=== PATIENT | male | born 1960 | race Caucasian/White ===

== ENCOUNTER 2023-10-23 18:04 | Inpatient (IN) | payer OTHER, SELFPAY ==
[2023-10-23] VITALS (13 sets, daily range): BP systolic 202–250; BP diastolic 110–132; PULSE 69–94; TEMP 36.6–36.8; O2SAT 98–100; BMI 31.9; BMI 33.0
--- NOTE | 2023-10-23 18:30 | ECG_ITS ---
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
--- NOTE | 2023-10-23 18:31 | XR_ITS ---
The [address] [address] Patient Name: YOCASTA KRUGER MRN: [id number] date: 1960 Sex: M Assigned Patient Location: ER Current Patient Location: ER Accession/Order Number: [id number] Exam Date: 10/23/2023 19:05 Report Date: 10/23/2023 19:51 At the request of: VANI SHARMA Procedure: XR chest 1V EXAM: XR chest 1V CLINICAL INDICATION: Hypertension TECHNIQUE: Portable frontal semi-erect view of the chest. COMPARISON: None. FINDINGS: Lines and tubes: None. Lungs: No convincing focal infiltrates. No pleural effusion or pneumothorax. Heart: Cardiac and mediastinal contours are unremarkable. No overt pulmonary vascular congestion. Osseous structures: No acute abnormalities. XR/XR chest 1V IMPRESSION: No acute cardiopulmonary process. Electronically authenticated by: DAYANARA SUNSHINE Date: 10/23/2023 19:51
--- NOTE | 2023-10-23 18:31 | CT_ITS ---
The [address] [address] Patient Name: YOCASTA KRUGER MRN: [id number] date: 1960 Sex: M Assigned Patient Location: ER Current Patient Location: .MAIN Accession/Order Number: [id number] Exam Date: 10/23/2023 19:09 Report Date: 10/23/2023 19:46 At the request of: VANI SHARMA Procedure: CT head/brain wo con EXAMINATION: CT head/brain wo con, 10/23/2023 7:09 PM EDT HISTORY: Hypertension, headache for 3 days COMPARISON: None. TECHNIQUE: CT scan of the head was performed without IV contrast. CT dose reduction technique was used, including Automated Exposure Control. FINDINGS: BRAIN PARENCHYMA/CSF SPACES: Ventricles are normal in size for age. There is no mass effect or midline shift. Tiny focus of high density in the left frontal lobe, adjacent to a jovanny hole (series 5, image 27). PARANASAL SINUSES: Clear. SKULL BASE AND CALVARIUM: [place] hole noted in the left frontal calvarium. EXTRACRANIAL SOFT TISSUES: Normal. CT/CT head/brain wo con IMPRESSION: Left frontal calvarial jovanny hole with a focal area of increased density in the left frontal lobe in this region which may be artifactual or secondary to chronic changes. A tiny focus of cortical hemorrhage is difficult to exclude on this study. Electronically authenticated by: SAI MCMULLEN Date: 10/23/2023 19:46
--- NOTE | 2023-10-23 18:31 | ED.GENADUL1 ---
HPI HPI - General Adult General Chief complaint: Eye Problems Stated complaint: HEADACHE, BLURRED/DOUBLE VISION L EYE Time Seen by Provider: 10/23/23 18:27 Source: patient Mode of arrival: walk-in Limitations: no limitations History of Present Illness HPI narrative: 63-year-old male presents to ED for headache and blurred vision in his left eye. He has been having this headache for 3 days. He has a history of hypertension but has not been on blood pressure medicine for years and has not had his blood pressure checked for years. No trauma fever or stiff neck. He does not complain of localized weakness in his arms or legs. Headache is moderate and continuous and involves all of his head. Related Data Allergies Allergy/AdvReac Type Severity Reaction Status Date / Time No Known Drug Allergies Allergy Verified 10/23/23 18:14 Opioid HPI Opioid Management Most Recent Opioid Data: No Data to Display Review of Systems ROS Narrative A ten point review of systems is negative except as noted above. Exam Narrative Exam Narrative: Nurses note and vital signs reviewed and patient is not hypoxic. General: The patient appears well and in no apparent distress. Patient is resting comfortably on cart. Skin: Warm, dry, no pallor noted. There is no rash noted. Head: Normocephalic, atraumatic Eye: Normal conjunctiva, no drainage Ears, Nose, Mouth, and Throat: oral mucosa is moist. Nares patent. Cardiovascular: Regular Rate and Rhythm Respiratory: Patient is in no distress, no accessory muscle use, lungs are clear to auscultation, no wheezing, rales or rhonchi Back: non-tender GI: Soft and nontender Musculoskeletal: Bilateral 1+ ankle edema Neurological: A&O, normal speech, upper and lower extremity strength intact Psychiatric: Cooperative Constitutional Vital Signs, click to edit/add: Last Vital Signs Temp 98.3 F 10/23/23 18:15 Pulse 79 10/23/23 18:15 Resp 16 10/23/23 18:15 BP 236/130 H 10/23/23 18:48 Pulse Ox 98 10/23/23 18:15 Course Vital Signs Vital signs: Vital Signs Temperature 98.3 F 10/23/23 18:15 Pulse Rate 79 10/23/23 18:15 Respiratory Rate 16 10/23/23 18:15 Blood Pressure 250/120 H 10/23/23 18:15 Pulse Oximetry 98 10/23/23 18:15 Temperature 98.3 F 10/23/23 18:15 Pulse Rate 79 10/23/23 18:15 Respiratory Rate 16 10/23/23 18:15 Blood Pressure 236/130 H 10/23/23 18:48 Pulse Oximetry 98 10/23/23 18:15 Medical Decision Making MDM Narrative Medical decision making narrative: The patient presents with significantly elevated blood pressure. IV labetalol, 5 mg, as ordered and CT scan is ordered as well as blood work and the patient is signed out to Dr. Aleman. Differential Diagnosis Differential Diagnosis: Uncontrolled hypertension, intracranial hemorrhage ECG Data Attestation: I personally reviewed and interpreted this ECG as follows: (EKG on my interpretation shows sinus rhythm without acute change, flattened T waves inferiorly) Critical Care Time Critical Care Time Critical Care Time: Yes Total Critical Care Time: 35 Attestation: Due to the high probability of sudden and clinically significant deterioration in the patient's condition he/she required the highest level of my preparedness to intervene urgently I provided critical care time including documentation time, medication orders and management, reevaluation, vital sign assessment, ordering and reviewing of lab tests, ordering and reviewing of x-ray studies, and admission orders. Aggregate critical care time is 35 minutes including only time during which I was engaged in work directly related to his/her care and did not include time spent treating other patients simultaneously. Discharge Plan Discharge Patient Disposition: Still a Patient
[2023-10-23] MEDS: LABETALOL HCL 100 MG/20 ML MDV IVP ×2 (19:00→19:51)
[2023-10-23 19:15] LABS: Basophils Percent Auto 0.5 % (0.2-2.0); Eosinophils Percent Auto 0.5 % (0.9-7.0); Hematocrit 45.7 % (42.0-54.0); Hemoglobin 14.9 g/dL (14.0-18.0); Immature Granulocytes Abs Auto 0.01 10^3/uL (0.00-0.03); Immature Granulocytes Pct Auto 0.1 % (0.0-0.5); Lymphocytes Absolute Auto 2.1 10^3/uL (1.2-3.8); Lymphocytes Percent Auto 26.9 % (20.5-60.0); Mean Corpuscular HGB Conc 32.6 g/dL (29.9-35.2); Mean Corpuscular Hemoglobin 30.8 pg (25.9-34.0); Mean Corpuscular Volume 94.4 fL (80.0-94.0); Mean Platelet Volume 10.9 fL (9.5-13.5); Monocytes Absolute Auto 0.7 10^3/uL (0.3-0.8); Neutrophils Absolute Auto 4.9 10^3/uL (1.4-6.5); Platelet Count 199 10^3/uL (150-450); Red Blood Count 4.84 10^6/uL (4.70-6.10); Red Cell Distribution Width 12.4 % (11.0-15.0); White Blood Count 7.8 10^3/uL (4.0-11.0)
[2023-10-23 19:15] LABS: Bilirubin Urine NEGATIVE (NEGATIVE); Blood Urine MODERATE (NEGATIVE); Clarity Urine CLEAR (CLEAR); Color Urine LT. YELLOW (YELLOW); Glucose Urine UA NEGATIVE (NEGATIVE); Ketones Urine 15 mg/dL (NEGATIVE); Leukocyte Esterase Urine NEGATIVE (NEGATIVE); Nitrite Urine NEGATIVE (NEGATIVE); Protein Urine NEGATIVE (NEG/TRACE); Specific Gravity Urine 1.025 (1.005-1.025)
[2023-10-23 19:24] LABS: Amorphous Sediment Urine RARE; Bacteria Urine NONE SEEN #/HPF (NONE SEEN); Cast Seen? NONE SEEN #/LPF (NONE SEEN); Crystals Seen? Seen #/HPF (None Seen); Mucus Urine NONE SEEN (NONE SEEN); Squamous Epithelial Cell Urine NONE SEEN #/LPF (NONE/RARE); Urine Culture Indicated NO; WBC Urine 0-2 #/HPF (NONE SEEN)
[2023-10-23 19:27] LABS: Anion Gap 14.1; BUN Creatinine Ratio 18.9; Calcium 9.3 mg/dL (8.5-10.1); Carbon Dioxide 26.6 mmol/L (21.0-32.0); Chloride 103 mmol/L (98-107); Estimated GFR (African America >60 (>=60); Estimated GFR (Non-African Ame >60 (>=60); Glucose 156 mg/dL (74-106); Potassium 3.7 mmol/L (3.5-5.1); Sodium 140 mmol/L (136-145)
[2023-10-23 19:33] LABS: Troponin I High Sensitivity 33.9 pg/mL (4.0-76.1)
[2023-10-23] MEDS: HYDRALAZINE HCL 20 MG/ML VIAL 10 MG IVP (22:36)
[2023-10-24] VITALS (87 sets, daily range): BP systolic 116–237; BP diastolic 70–127; PULSE 61–110; TEMP 36.6–36.8; O2SAT 96–100
[2023-10-24] MEDS: HYDRALAZINE HCL 20 MG/ML VIAL 10 MG IVP ×3 (02:58→15:37)
[2023-10-24 05:00] LABS: Basophils Absolute Auto 0.1 10^3/uL (0.0-0.1); Basophils Percent Auto 0.6 % (0.2-2.0); Eosinophils Percent Auto 0.5 % (0.9-7.0); Hemoglobin 14.6 g/dL (14.0-18.0); Immature Granulocytes Abs Auto 0.02 10^3/uL (0.00-0.03); Immature Granulocytes Pct Auto 0.3 % (0.0-0.5); Lymphocytes Absolute Auto 2.3 10^3/uL (1.2-3.8); Lymphocytes Percent Auto 29.7 % (20.5-60.0); Mean Corpuscular HGB Conc 33.2 g/dL (29.9-35.2); Mean Corpuscular Hemoglobin 30.9 pg (25.9-34.0); Monocytes Absolute Auto 0.9 10^3/uL (0.3-0.8); Monocytes Percent Auto 11.2 % (1.7-12.0); Neutrophils Absolute Auto 4.5 10^3/uL (1.4-6.5); Neutrophils Percent Auto 57.7 % (43.0-75.0); Platelet Count 191 10^3/uL (150-450); Red Blood Count 4.73 10^6/uL (4.70-6.10); Red Cell Distribution Width 12.5 % (11.0-15.0); White Blood Count 7.7 10^3/uL (4.0-11.0)
[2023-10-24 05:29] LABS: Alanine Aminotransferase 23 U/L (16-63); Albumin Globulin Ratio 1.1; Albumin Level 3.6 g/dL (3.4-5.0); Alkaline Phosphatase 47 U/L (46-116); Anion Gap 14.5; Aspartate Amino Transferase 14 U/L (15-37); BUN Creatinine Ratio 16.7; Chloride 104 mmol/L (98-107); Estimated GFR (African America >60 (>=60); Estimated GFR (Non-African Ame >60 (>=60); Globulin 3.4 g/dL; Glucose 111 mg/dL (74-106); Potassium 3.5 mmol/L (3.5-5.1); Sodium 140 mmol/L (136-145)
--- NOTE | 2023-10-24 07:00 | MR_ITS ---
The [address] [address] Patient Name: YOCASTA KRUGER MRN: [id number] date: 1960 Sex: M Assigned Patient Location: ICU Current Patient Location: ICU Accession/Order Number: [id number] Exam Date: 10/24/2023 12:00 Report Date: 10/24/2023 12:56 At the request of: DIXIE SPANN Procedure: MR head/brain wo con EXAM: MR head/brain wo con HISTORY: headache/blurred vision - HTN Emergency COMPARISON: CT head 10/23/2023. TECHNIQUE: Multiplanar multisequence MR imaging of the brain was performed without intravenous contrast. FINDINGS: Calvarium/skull base: The previously described left frontal jovanny hole is redemonstrated. No focal marrow replacing lesion suggestive of neoplasm. Orbits: Grossly unremarkable. Paranasal sinuses: Imaged portions clear Brain: No restricted diffusion. Minimal T2 FLAIR signal hyperintensities are present involving the supratentorial white matter. No focal abnormality is present involving the left frontal lobe subjacent to the frontal jovanny hole suggesting this was artifactual in nature on recent CT. No mass effect, hemorrhage, or hydrocephalus. Grossly normal flow-related signal in the major intracranial arteries and dural sinuses. MR/MR head/brain wo con IMPRESSION: 1. No acute intracranial process. 2. Minimal scattered T2 hyperintense white matter lesions which are nonspecific, typically attributed to prior trauma/inflammation/demyelination, or chronic ischemia associated with migraine/atherosclerosis. Electronically authenticated by: TED NGUYEN Date: 10/24/2023 12:56
[2023-10-24] MEDS: LOSARTAN POTASSIUM 50 MG TABLET 100 MG PO (08:28)
[2023-10-24] MEDS: HYDROCHLOROTHIAZIDE 25 MG TABLET PO (08:28)
--- NOTE | 2023-10-24 11:17 | PM.HP ---
HPI H&P: HPI History of Present Illness Chief complaint: STROKE MALIGNANT HYPERTENSION Narrative: 63-year-old male with no significant past medical history other than essential hypertension presented to ED last evening with diplopia/blurred vision and headache. He reports he has ongoing headache associated with double vision/blurred vision for 2 days. He has prior history of essential hypertension but he is not on anything currently for it. He has not seen a primary care physician for a few years. As a child he had head injury that required cranial surgery that was seen on the CT head on arrival with no evidence of acute bleeding. Patient denies any weakness/numbness. He was admitted to ICU overnight for hypertensive emergency with blood pressure as high as 250/120 on arrival. He was initially treated with IV labetalol and IV hydralazine but was not started on IV continuous infusion for hypertensive emergency. While his blood pressure is somewhat better but he is still persistently above 190/100 and continues to experience/report headache/blurred vision/diplopia. I started him on oral losartan/hydrochlorothiazide. There is no significant response to oral medication and as a result I started him on IV Cardene drip with goal blood pressure no less than 160/100. I also added oral amlodipine. Patient was admitted as above observation but given his presentation including malignant hypertension/hypertensive emergency, persistent neurological symptoms and difficult to treat bp prior continuous IV infusion, I changed him to inpatient. He has an MRI brain pending to rule out stroke/intracranial bleeding. He also has a teleneurology consult pending. Opioid HPI Opioid Management Most Recent Opioid Data: Last Pain Scale 2 10/24/23 11:00 Last Pain Assessment 10/24/23 11:00 Last ORT Total Score 0 10/23/23 22:28 Last ORT Risk Category Low Risk 10/23/23 22:28 Review of Systems ROS Status of ROS 10 or more systems reviewed and unremarkable except as noted in history and below PFSH PFSH Surgical History (Updated 10/23/23 @ 22:19 by Rocío Coker) History of jovanny hole surgery ?Z98.890 - Other specified postprocedural states (ICD-10) Social History (Updated 10/23/23 @ 22:21 by Rocío Coker) Within the past year, how often did you have a drink containing alcohol: 4 or more times a week Within the past year, how many standard drinks containing alcohol did you have on a typical day: 3 or 4 Non-prescribed substance use: cannabis (any form) 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 Highest level of school completed/degree received: Associate degree: occupational, technical, vocational program In a typical week, how many times do you talk on the telephone with family, friends, or neighbors: 3 or more times per week How often do you get together with friends or relatives: 3 or more times per week Little interest or pleasure in doing things: not at all Feeling down, depressed, or hopeless: not at all Feel stressed/tense/nervous/anxious/difficulty sleeping: not at all Meds Home Medications and Allergies Allergies Allergy/AdvReac Type Severity Reaction Status Date / Time No Known Drug Allergies Allergy Verified 10/23/23 18:14 Exam Constitutional Vital Signs, click to edit/add: Last Vital Signs Temp 98 F 10/24/23 08:00 Pulse 69 10/24/23 10:30 Resp 21 H 10/24/23 10:30 BP 213/98 H 10/24/23 10:51 Pulse Ox 98 10/24/23 08:00 O2 Del Method Room Air 10/24/23 08:00 Documenting provider has reviewed patient's vital signs: yes Common normals: no apparent distress and oriented x3 General appearance: cooperative HENMT Common normals: normocephalic and head/scalp atraumatic Head and scalp: normocephalic and atraumatic Other: Evidence of prior head injury on forehead Eye Common normals: conjunctivae normal and no scleral icterus Conjunctiva: conjunctiva(e) normal Respiratory Common normals: normal respiratory effort and clear to auscultation bilaterally Effort & inspection: able to speak in complete sentences Auscultation: clear to auscultation bilaterally Cardio Common normals: regular rate, S1 normal heart sound and S2 normal heart sound Rate: regular rate Heart sounds: S1 normal and S2 normal GI Common normals: Normal to inspection, nondistended, normoactive bowel sounds present, soft to palpation, non-tender and no hepatosplenomegaly Palpation: soft and no hepatosplenomegaly Extremity Common normals: no clubbing, cyanosis or edema Neuro Common normals: oriented x3, moves all extremities and no focal motor deficits Psych Common normals: mental status grossly normal, denies hallucinations, denies homicidal ideation and denies suicidal ideation Results Labs Labs: Short CBC 10/23/23 10/24/23 Range/Units 18:32 04:05 WBC 7.8 7.7 (4.0-11.0) 10^3/uL Hgb 14.9 14.6 (14.0-18.0) g/dL Hct 45.7 44.0 (42.0-54.0) % Plt Count 199 191 (150-450) 10^3/uL BMP 10/23/23 10/24/23 18:32 04:05 Sodium 140 140 Potassium 3.7 3.5 Chloride 103 104 Carbon Dioxide 26.6 25.0 BUN 17.0 12.0 Creatinine 0.90 0.72 Glucose 156 H 111 H Calcium 9.3 9.0 Liver Function 10/24/23 Range/Units 04:05 Total Bilirubin 1.0 (0.2-1.0) mg/dL AST 14 L (15-37) U/L ALT 23 (16-63) U/L Alkaline Phosphatase 47 (46-116) U/L Albumin 3.6 (3.4-5.0) g/dL Urine 10/23/23 Range/Units 18:45 Urine Color Lt. yellow (YELLOW) Urine Clarity Clear (CLEAR) Urine pH 6.0 (5.0-9.0) Ur Specific [place] 1.025 (1.005-1.025) Urine Protein Negative (NEG/TRACE) mg/dL Urine Glucose (UA) Negative (NEGATIVE) mg/dL Assessment and Plan Assessment and Plan (1) Hypertensive emergency: (2) Diplopia: (3) Blurred vision: (4) Headache: Qualifiers: Headache type: unspecified Headache chronicity pattern: acute headache Intractability: not intractable Qualified Code(s): R51.9 - Headache, unspecified Plan Patient presented with hypertensive emergency, headache and associated neurological symptoms including diplopia and blurred vision. His blood pressure is a still quite elevated and persistently above 190-200/100. He will require continuous IV infusion. Started on IV Cardene. He was also given oral losartan/hydrochlorothiazide along with amlodipine. Patient needs close hemodynamic monitoring, along with frequent neurochecks. Awaiting MRI brain and neurological evaluation by teleneurology. Patient is critically ill with high risk of prognosis and neurological outcome. He needs close monitoring of his blood pressure and gradual/slow titration of antihypertensives. Goal blood pressure is 160/100 in first 24 hours. Overall 50 minutes of critical care time spent on patient's evaluation, coordination of care, review of his medical chart, patient education and clinical decision making.
--- NOTE | 2023-10-24 11:37 | CM.NOTE ---
Rounds made with Dr. Beatty, discussed with pt in depth regarding danger of high BP and need for better control prior to discharge to home. Discussed also importance of f/u with eye doctor. Daughter at bedside to hear recommendations. Spoke with pt also regarding getting BP cuff for home to monitor daily BP. Pt and daughter both verbalize understanding.
[2023-10-24] MEDS: AMLODIPINE BESYLATE 5 MG TABLET 10 MG PO (11:38)
--- NOTE | 2023-10-24 14:09 | CT_ITS ---
The [address] [address] Patient Name: YOCASTA KRUGER MRN: [id number] date: 1960 Sex: M Assigned Patient Location: ICU Current Patient Location: ICU Accession/Order Number: [id number] Exam Date: 10/24/2023 14:21 Report Date: 10/24/2023 15:10 At the request of: LAINA MARTINEZ Procedure: CT angio head CT angio head, 10/24/2023 2:21 PM EDT INDICATION: double vision COMPARISON: Prior MRI of the head of the same date and CT of the head dated 10/23/2023 TECHNIQUE: Pre and postcontrast enhanced CT angiography of the head and neck were acquired with contrast .3 D MIP images were reconstructed in sagittal and coronal format at the scanner and were evaluated at the time of dictation. Dose reduction techniques were achieved by using automated exposure control and/or adjustment of mA and/or kV according to patient size and/or use of iterative reconstruction technique. FINDINGS: The great vessels enhance normally. No filling defects are identified within the carotid arteries. There is mild stenosis at the origin of right and moderate at origin of left internal carotid arteries. No abnormality of [place] of [place] is noted. The VAIBHAV MCA and SLIVER LAP MACHINE TENDER are unremarkable. The anterior and posterior communicating arteries are patent. There is no aneurysm or significant stenosis. No abnormality of the vertebral and basilar arteries is noted. No mass, mass effect or midline shift or hemorrhage in the brain parenchyma is noted. Left frontal craniotomy and encephalomalacia is again noted. No significant soft tissue abnormality within the neck is noted. The visualized portion of the lungs is unremarkable. No suspicious bone lesion is noted. Multilevel degenerative changes of cervical spine. CT/CT angio head IMPRESSION: Mild stenosis at origin of the right and moderate stenosis at origin of the left internal carotid arteries. No CT evidence of embolus or severe stenosis or dissection in the major arteries in the current study. CAROTID STENOSIS REFERENCE: MILD = <50% stenosis. MODERATE = 50-69% stenosis. SEVERE = >70% stenosis. Electronically authenticated by: LYDIA BURNS Date: 10/24/2023 15:10
--- NOTE | 2023-10-24 14:09 | CT_ITS ---
The [address] [address] Patient Name: YOCASTA KRUGER MRN: [id number] date: 1960 Sex: M Assigned Patient Location: ICU Current Patient Location: ICU Accession/Order Number: [id number] Exam Date: 10/24/2023 14:21 Report Date: 10/24/2023 15:10 At the request of: LAINA MARTINEZ Procedure: CT angio neck CT angio head, 10/24/2023 2:21 PM EDT INDICATION: double vision COMPARISON: Prior MRI of the head of the same date and CT of the head dated 10/23/2023 TECHNIQUE: Pre and postcontrast enhanced CT angiography of the head and neck were acquired with contrast .3 D MIP images were reconstructed in sagittal and coronal format at the scanner and were evaluated at the time of dictation. Dose reduction techniques were achieved by using automated exposure control and/or adjustment of mA and/or kV according to patient size and/or use of iterative reconstruction technique. FINDINGS: The great vessels enhance normally. No filling defects are identified within the carotid arteries. There is mild stenosis at the origin of right and moderate at origin of left internal carotid arteries. No abnormality of [place] is noted. The VAIBHAV MCA and PATIENT SAFETY MANAGER are unremarkable. The anterior and posterior communicating arteries are patent. There is no aneurysm or significant stenosis. No abnormality of the vertebral and basilar arteries is noted. No mass, mass effect or midline shift or hemorrhage in the brain parenchyma is noted. Left frontal craniotomy and encephalomalacia is again noted. No significant soft tissue abnormality within the neck is noted. The visualized portion of the lungs is unremarkable. No suspicious bone lesion is noted. Multilevel degenerative changes of cervical spine. CT/CT angio neck IMPRESSION: Mild stenosis at origin of the right and moderate stenosis at origin of the left internal carotid arteries. No CT evidence of embolus or severe stenosis or dissection in the major arteries in the current study. CAROTID STENOSIS REFERENCE: MILD = <50% stenosis. MODERATE = 50-69% stenosis. SEVERE = >70% stenosis. Electronically authenticated by: LYDIA BURNS Date: 10/24/2023 15:10
--- NOTE | 2023-10-24 14:09 | CA_ITS ---
Patient Name: YOCASTA KRUGER MR#: [id number] : 1960 Exam Date: 10/24/2023 Ordering Doctor: LAINA MARTINEZ ECHOCARDIOGRAM REPORT PROCEDURE: CA ECHO W/ CON INDICATIONS: R/O emboli, hypertension COMPARISON: None. DESCRIPTION: COMPLETE ECHOCARDIOGRAM Real-time transthoracic echocardiography with 2D, M-mode, spectral and color flow Doppler performed. QUALITY: Technical quality was adequate. Lumason contrast was administered to rule out possible emboli. 68 , 216#, BSA 2.11 m2, BP 191/83 LEFT VENTRICLE: Normal chamber size. Moderate concentric left ventricular hypertrophy. Systolic function is hyperdynamic. There is near cavity obliteration in systole with mild intracavitary gradient up to 12 mmHg at rest. LV EF: Hyperdynamic left ventricular ejection fraction, (80%). DIASTOLIC: Grade I diastolic dysfunction. ATRIAL SEPTUM: Visually appears intact. LEFT ATRIUM: Mild dilatation. RIGHT ATRIUM: Mild dilatation. RIGHT VENTRICLE: Normal chamber size. Normal right ventricular systolic function. TRICUSPID VALVE: Normal mobility and thickness. No stenosis with trivial regurgitation. MITRAL VALVE: Normal mobility and thickness. No evidence of mitral valve stenosis. There is no mitral annular calcification. Trivial mitral regurgitation. AORTIC VALVE: Unable to assess leaflet morphology. Mildly calcified aortic valve. Mildly diminished mobility. No aortic regurgitation. AORTIC ROOT: Normal diameter and appearance. Ascending aorta is normal in size. PULMONIC VALVE: Not well visualized. PERICARDIUM: No evidence of pericardial effusion. IVC: Collapses with inspirations. PLEURA: CONCLUSION: 1. Mild concentric left ventricular hypertrophy with hyperdynamic systolic function. LVEF is estimated at 80%. There is near cavity obliteration in systole with mild intracavitary gradient up to 12 mmHg. 2. Normal right ventricular size and systolic function. 3. Mild biatrial dilatation. 4. Grade 1 diastolic dysfunction. 5. Calcified aortic valve without significant stenosis or regurgitation. 6. No significant valvular dysfunction. Adult Echocardiography Procedure Report Left Ventricle LVEDD (3.7 - 5.6 cm): 4.55 cm LVESD (2.2 - 4.0 cm): 3.11 cm LVIVS thickness (0.6 - 1.2 cm): 1.41 cm LVPW thickness (0.5 - 1.0 cm): 1.20 cm E - e': 5.16 LVOT Max Gradient: 9.04 mm[Hg] LVOT Area (cm2): 1.50 m/s Peak Velocity (LVOT): 1.50 m/s Mean Velocity (LVOT): 1.19 m/s LVOT Diameter 2.36 cm Left Atrium LA Volume Index (2D A2C): 36.16 ml/m2 Left Atrium Systolic Dimension: 3.58 cm Mitral Valve MV E to A Ratio: 0.49 Mitral Valve A-Wave Peak Velocity: 1.02 m/s Mitral Valve E-Wave Peak Velocity: 0.50 m/s Right Ventricle Aorta AO Root Diam: 3.27 cm Ascending Ao Diam: 3.05 cm Aortic Valve AoV Area (Peak [place]): 2.58 cm2, 2.58 cm2 AoV Area (VTI): 3.06 cm2, 3.06 cm2 Peak Velocity(Antegrade Flow): 2.55 m/s, 2.27 m/s Peak Gradient(Antegrade Flow): 25.95 mm[Hg], 20.56 mm[Hg] Mean Velocity(Antegrade Flow): 1.58 m/s, 1.42 m/s Mean Gradient(Antegrade Flow): 12.36 mm[Hg], 10.05 mm[Hg] Velocity Time Integral: 43.65 cm, 41.60 cm Tricuspid Valve Pulmonic Valve Mean Gradient: 4.98 mm[Hg] Mean Velocity: 1.05 m/s Peak Velocity: 1.46 m/s, 1.22 m/s Peak Gradient: 5.91 mm[Hg], 8.50 mm[Hg] Right Atrium Right Atrium Systolic Pressure: 58.73 ml, 58.73 ml Dictated by: Ba Frye M.D. on 10/24/2023 at 17:57 Approved by: Ba Frye M.D. on 10/24/2023 at 18:10
[2023-10-24 14:43] LABS: Chol HDL Ratio 2.7; Cholesterol 222 mg/dL (<=200); HDL Cholesterol 82 mg/dL (40-60); Triglycerides 84 mg/dL (<=150); VLDL CHOLESTEROL 16.8 mg/dL
[2023-10-24 15:09] LABS: Estimated Average Glucose 111 mg/dL; Glycohemoglobin A1C 5.5 % (4.5-6.2)
[2023-10-24] MEDS: ASPIRIN 81 MG TAB.CHEW PO (15:35)
[2023-10-24] MEDS: SULFUR HEXAFLUORIDE MICROSPHR 25 MG (5ML VIAL) IV (16:17)
[2023-10-25] VITALS (19 sets, daily range): BP systolic 125–194; BP diastolic 80–108; PULSE 63–83; TEMP 36.4–37.1; O2SAT 96–99
[2023-10-25 05:59] LABS: Basophils Percent Auto 0.3 % (0.2-2.0); Eosinophils Percent Auto 0.3 % (0.9-7.0); Hematocrit 45.3 % (42.0-54.0); Hemoglobin 14.7 g/dL (14.0-18.0); Immature Granulocytes Abs Auto 0.02 10^3/uL (0.00-0.03); Immature Granulocytes Pct Auto 0.2 % (0.0-0.5); Lymphocytes Percent Auto 29.4 % (20.5-60.0); Mean Corpuscular HGB Conc 32.5 g/dL (29.9-35.2); Mean Corpuscular Hemoglobin 30.7 pg (25.9-34.0); Mean Corpuscular Volume 94.6 fL (80.0-94.0); Mean Platelet Volume 11.5 fL (9.5-13.5); Monocytes Absolute Auto 1.3 10^3/uL (0.3-0.8); Monocytes Percent Auto 12.3 % (1.7-12.0); Neutrophils Absolute Auto 5.9 10^3/uL (1.4-6.5); Neutrophils Percent Auto 57.5 % (43.0-75.0); Platelet Count 194 10^3/uL (150-450); Red Blood Count 4.79 10^6/uL (4.70-6.10); White Blood Count 10.3 10^3/uL (4.0-11.0)
[2023-10-25 06:15] LABS: Alanine Aminotransferase 18 U/L (16-63); Albumin Level 3.4 g/dL (3.4-5.0); Alkaline Phosphatase 44 U/L (46-116); Anion Gap 11.8; Aspartate Amino Transferase 14 U/L (15-37); BUN Creatinine Ratio 20.2; Calcium 9.1 mg/dL (8.5-10.1); Chloride 104 mmol/L (98-107); Estimated GFR (African America >60 (>=60); Estimated GFR (Non-African Ame >60 (>=60); Globulin 3.3 g/dL; Glucose 104 mg/dL (74-106); Potassium 3.8 mmol/L (3.5-5.1); Sodium 139 mmol/L (136-145); Total Protein 6.7 g/dL (6.4-8.2)
--- NOTE | 2023-10-25 06:50 | PC.NURSE ---
Patient up to bathroom after having blood drawn. No vertigo or pain noted. Patient states he continues to have double vision without change in the amount or the way things appear.
[2023-10-25] MEDS: AMLODIPINE BESYLATE 5 MG TABLET 10 MG PO (08:08)
[2023-10-25] MEDS: LOSARTAN POTASSIUM 50 MG TABLET 100 MG PO (08:08)
[2023-10-25] MEDS: HYDROCHLOROTHIAZIDE 25 MG TABLET PO (08:08)
[2023-10-25] MEDS: ASPIRIN 81 MG TAB.CHEW PO (08:08)
--- NOTE | 2023-10-25 09:15 | PM.DS1 ---
DS: Providers Provider Date of admission: 10/24/23 11:24 Primary care physician: RAMIRO JONES MD Consults: 10/23/23 20:17 Consult to Telestroke Routine Reason for consultation: consult [facility] stroke Dr Hu DS: Diagnosis Discharge Diagnosis (1) Hypertensive emergency: (2) Diplopia: (3) Blurred vision: (4) Headache: Qualifiers: Headache type: unspecified Headache chronicity pattern: acute headache Intractability: not intractable Qualified Code(s): R51.9 - Headache, unspecified (5) Carotid artery stenosis: (6) Hypertension: DS: Summary Hospital Course Hospital Course: Reason for admission: See ER note and H&P for details. 63 y/o male to ER with ESPINOSA and blurred vision. History of HTN and no medication and not checked for several years. C/o ESPINOSA for several days. Developed blurred vision and double vision. To ER and BP 236/130. CT head negative. Gave IV medication and started cardene drip. Admitted for treatment. Hospital course: Tele-neurology consulted and MRI brain ordered. BP improved and added losartan and HCTZ. Off drip and added amlodipine. MRI brain without acute change. CTA head and neck with mild stenosis right origin carotid and moderate stenosis origin left carotid artery. Echo with EF 80% and mild diastolic dysfunction. Vision changes resolved and BP stable. Discharged home in stable condition. Will continue Hyzaar and norvasc for HTN. Monitor BP PRN at home. Will arrange for outpatient vascular surgery follow up to assess carotid artery stenosis. Establish with new PCP in 1-2 weeks. Time Spent with Patient Time attestation: Total time spent providing and/or coordinating discharge services: Time spent: greater than 30 minutes Exam Constitutional Vital Signs, click to edit/add: Last Vital Signs Temp 97.6 F 10/25/23 08:00 Pulse 74 10/25/23 08:00 Resp 18 10/25/23 08:00 BP 194/95 H 10/25/23 08:00 Pulse Ox 97 10/25/23 08:00 O2 Del Method Room Air 10/25/23 08:00 Documenting provider has reviewed patient's vital signs: yes Common normals: no apparent distress, oriented x3 and alert HENMT Common normals: normocephalic Eye Common normals: PERRL and EOMs intact bilaterally Respiratory Common normals: normal respiratory effort and clear to auscultation bilaterally Cardio Common normals: regular rate, regular rhythm, no gallops, no murmurs and no rub GI Common normals: Normal to inspection, nondistended, normoactive bowel sounds present and non-tender Extremity Common normals: no pedal edema DS: Data Data Completed and Pending Labs on day of discharge: Labs from last 24 hours 10/25/23 10/24/23 03:49 04:05 WBC 10.3 RBC 4.79 Hgb 14.7 Hct 45.3 MCV 94.6 H MCH 30.7 MCHC 32.5 RDW 13.0 Plt Count 194 MPV 11.5 Neut % (Auto) 57.5 Lymph % (Auto) 29.4 Childress % (Auto) 12.3 H Eos % (Auto) 0.3 L Baso % (Auto) 0.3 Neut # (Auto) 5.9 Lymph # (Auto) 3.0 Child[place] # (Auto) 1.3 H Eos # (Auto) 0.0 Baso # (Auto) 0.0 Abs Immat Gran (auto) 0.02 Imm/Tot Granulo (auto) 0.2 Sodium 139 Potassium 3.8 Chloride 104 Carbon Dioxide 27.0 Anion Gap 11.8 BUN 19.0 H Creatinine 0.94 Est GFR ( Amer) >60 Est GFR (Non-Af Amer) >60 BUN/Creatinine Ratio 20.2 Glucose 104 Estimat Average Glucose 111 Hemoglobin A1c 5.5 Calcium 9.1 Total Bilirubin 1.0 AST 14 L ALT 18 Alkaline Phosphatase 44 L Total Protein 6.7 Albumin 3.4 Globulin 3.3 Albumin/Globulin Ratio 1.0 Triglycerides 84 Cholesterol 222 H LDL Cholesterol, Calc 124.0 VLDL Cholesterol 16.8 HDL Cholesterol 82 H Cholesterol/HDL Ratio 2.7 Discharge Plan Discharge Disposition: Home, Self-Care Discharge Medications: New amlodipine 10 mg tablet 10 mg PO DAILY Qty: 30 0RF losartan-hydrochlorothiazide [Hyzaar] 100-25 mg tablet 1 tab PO DAILY Qty: 30 0RF Activity: increase activity as tolerated Diet: advance to your usual diet Print Language: Guamanian Forms: Portal Instructions
--- NOTE | 2023-10-28 13:15 | CM.DCFOLLOWU ---
Person spoke with: patient How are you feeling? well How is your pain? no pain Did you understand your discharge instructions? yes Do you have any questions about your discharge instructions? no Were you given any prescriptions at discharge? yes Were you able to get your prescriptions filled? yes Do you understand how to take your medications as ordered? yes Do you have any questions about your follow up appointment and do you plan to keep your follow up appointment? no questions, had follow up with PCP and follow up with eye doctor today Is there anything else that you would like to discuss? no Questions/Comments/Concerns/Other: N/A
== END 2023-10-25 10:15 | disposition home or self-care (01) | DRG 305 ==
LOC: ER 19:33 → ICU 22:06
PROVIDERS: Emergency Medicine; Nurse Practitioner Acute Care; Psychiatry & Neurology Neurology; Admitting Provider Internal Medicine; Emergency Provider Internal Medicine; Family Provider Internal Medicine; PCP Internal Medicine; Visit Provider Family Medicine
DX: I16.0 Hypertensive urgency (principal); H53.2 Diplopia; H53.8 Other visual disturbances; R51.9 Headache, unspecified; I65.23 Occlusion and stenosis of bilateral carotid arteries; F12.90 Cannabis use, unspecified, uncomplicated; Z98.890 Other specified postprocedural states
CPT/HCPCS: 36415; 70450; 70496; 70498; 70551; 71045; 80048; 80053; 80061; 81001; 83036; 84484; 85025; 93005; 94761; 96374; 96375; 96376; 99285; C8929; G0378; Q3014; Q9950; Q9967

== ENCOUNTER 2024-02-04 16:50 | Emergency (ER) | payer OTHER, SELFPAY ==
[2024-02-04] VITALS (16 sets, daily range): BP systolic 164–261; BP diastolic 91–151; PULSE 59–74; TEMP 36.8; O2SAT 81–100; BMI 30.1
--- NOTE | 2024-02-04 17:04 | ECG_ITS ---
The [facility] Test Date: 2024-02-04 Pat Name: YOCASTA KRUGER Department: Room: - Gender: Male Physician Aide: : 1960 Requested By: RAMIRO JONES Order Number: [id number] Reading MD: VIVIAN VASQUEZ Measurements Intervals Crawford Rate: 69 P: 43 CT: 174 QRS: 40 QRSD: 92 T: 46 QT: 380 QTc: 400 Interpretive Statements 1100 Sinus rhythm [address] depression [address] & Twave abnormality, can't exclude myocardial ischemia 9150 abnormal ECG Electronically Signed On 02-04-2024 18:14:06 EDT by VIVIAN VASQUEZ
--- NOTE | 2024-02-04 17:04 | XR_ITS ---
The [address] [address] Patient Name: YOCASTA KRUGER MRN: [id number] date: 1960 Sex: M Assigned Patient Location: ED.MAIN Current Patient Location: ER Accession/Order Number: [id number] Exam Date: 02/04/2024 17:33 Report Date: 02/04/2024 18:22 At the request of: EZEQUIEL CHI Procedure: XR chest 1V EXAM: XR chest 1V HISTORY: Hypertension COMPARISON: 10/23/2023 TECHNIQUE: Chest X-ray AP, 1 view FINDINGS: Support devices: None. Lungs/pleura: No consolidation, effusion, or pneumothorax. Heart and mediastinum: Normal contours. Bones: No acute abnormality identified. XR/XR chest 1V Impression: No radiographic evidence of acute cardiopulmonary process. Electronically authenticated by: TIGIST ORTIZ Date: 02/04/2024 18:22
--- NOTE | 2024-02-04 17:07 | ED_ITS ---
HPI HPI - General Adult General Chief complaint: Recheck/Abnormal Lab/Rx Stated complaint: Hypertension Time Seen by Provider: 02/04/24 16:53 Source: patient Mode of arrival: walk-in Limitations: no limitations History of Present Illness HPI narrative: Patient is a very pleasant 63-year-old male who presents to the emergency department at the recommendation of his new nurse practitioner for evaluation of elevated blood pressure. Patient is totally asymptomatic, he states he was very surprised to hear in the primary care office that his blood pressure was so elevated because he has been feeling well. He was admitted to this facility several months ago with elevated blood pressures, hypertensive urgency and headache with blurred vision. He has not had any of these symptoms recently. He states he smokes marijuana but has not smoked cigarettes in many years. He has minimal edema to his ankles which is chronic for him, he states it has been much worse in the past and he feels these symptoms are better than they have been. Patient admits to being noncompliant with his regular blood pressure medications. He does not know what he takes, he states he knows he is supposed to take 1 medication in the morning and 1 at night but he has not taken anything today, he does not know what he took yesterday. Related Data Previous Rx's ?Medication ?Instructions ?Recorded amlodipine 10 mg tablet 10 mg PO DAILY #30 tabs 10/25/23 losartan 100 1 tab PO DAILY #30 tabs 10/25/23 mg-hydrochlorothiazide 25 mg tablet (Hyzaar) Allergies Allergy/AdvReac Type Severity Reaction Status Date / Time No Known Drug Allergies Allergy Verified 10/23/23 18:14 Opioid HPI Opioid Management Most Recent Opioid Data: Last Pain Scale 2 10/24/23 15:54 Last ORT Total Score 0 10/23/23 22:28 Last ORT Risk Category Low Risk 10/23/23 22:28 Review of Systems ROS Constitutional Denies: fever or chills Eyes Denies: blurry vision Ears, nose, mouth, and throat Denies: throat pain or nasal congestion Cardiovascular Denies: chest pain Respiratory Denies: shortness of breath Gastrointestinal Denies: abdominal pain, nausea or vomiting Musculoskeletal Denies: back pain Integumentary/Breast Denies: non-healing lesion Neurological Denies: headache, numbness in extremities, weakness in extremities, lack of coordination or dizziness Hematologic/Lymphatic Denies: easy bruising or easy bleeding PFSH PFSH Medical History (Updated 02/04/24 @ 18:24 by AMANDA Sanchez) Hypertension ?I10 - Essential (primary) hypertension (ICD-10) Surgical History (Updated 10/23/23 @ 22:19 by Rocío Coker) History of jovanny hole surgery ?Z98.890 - Other specified postprocedural states (ICD-10) Social History Within the past year, how often did you have a drink containing alcohol: 4 or more times a week Within the past year, how many standard drinks containing alcohol did you have on a typical day: 3 or 4 Non-prescribed substance use: cannabis (any form) 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 Highest level of school completed/degree received: Associate degree: occupational, technical, vocational program In a typical week, how many times do you talk on the telephone with family, friends, or neighbors: 3 or more times per week How often do you get together with friends or relatives: 3 or more times per week Little interest or pleasure in doing things: not at all Feeling down, depressed, or hopeless: not at all Feel stressed/tense/nervous/anxious/difficulty sleeping: not at all Exam Narrative Exam Narrative: Gen.: Awake, alert, in no distress Head: Normocephalic, atraumatic ENT: Moist mucous membranes Respiratory: No respiratory distress, lungs clear bilaterally Cardio: Regular rate and rhythm Extremities: Moves extremities equally Psych: Normal mood and affect Neuro: No focal neuro deficit Skin: Warm, dry, intact Constitutional Vital Signs, click to edit/add: Last Vital Signs Temp 98.2 F 02/04/24 16:56 Pulse 67 02/04/24 18:20 Resp 18 02/04/24 18:20 BP 164/91 H 02/04/24 18:20 Pulse Ox 100 02/04/24 18:20 O2 Del Method Room Air 02/04/24 16:56 Course Vital Signs Vital signs: Vital Signs Pulse Oximetry 98 02/04/24 16:54 Temperature 98.2 F 02/04/24 16:56 Pulse Rate 67 02/04/24 18:20 Respiratory Rate 18 02/04/24 18:20 Blood Pressure 164/91 H 02/04/24 18:20 Pulse Oximetry 100 02/04/24 18:20 Oxygen Delivery Method Room Air 02/04/24 16:56 Medical Decision Making MDM Narrative Medical decision making narrative: Treated with antihypertensives in the emergency department and repeat blood pressure is 164/91. He continues to be asymptomatic in the emergency department. Cardiac workup is unremarkable. Patient was strongly encouraged to regularly take his blood pressure medications and follow closely with his primary care provider office for adjustment of medications as needed. Return to the emergency department if symptoms change or worsen SUPERVISED APC VISIT, PHYSICIAN ATTESTATION: Based on the medical record the care appears appropriate. ? Medical Records Medical records reviewed: Yes I reviewed the patient's medical records Lab Data Lab results reviewed: Yes I reviewed the patient's lab results Labs: Lab Results 02/04/24 Range/Units 17:14 WBC 7.6 (4.0-11.0) 10^3/uL RBC 4.68 L (4.70-6.10) 10^6/uL Hgb 15.0 (14.0-18.0) g/dL Hct 44.9 (42.0-54.0) % MCV 95.9 H (80.0-94.0) fL MCH 32.1 (25.9-34.0) pg MCHC 33.4 (29.9-35.2) g/dL RDW 12.5 (11.0-15.0) % Plt Count 204 (150-450) 10^3/uL MPV 10.1 (9.5-13.5) fL Neut % (Auto) 53.1 (43.0-75.0) % Lymph % (Auto) 34.7 (20.5-60.0) % Branch % (Auto) 10.4 (1.7-12.0) % Eos % (Auto) 1.2 (0.9-7.0) % Baso % (Auto) 0.5 (0.2-2.0) % Neut # (Auto) 4.0 (1.4-6.5) 10^3/uL Lymph # (Auto) 2.6 (1.2-3.8) 10^3/uL Branch # (Auto) 0.8 (0.3-0.8) 10^3/uL Eos # (Auto) 0.1 (0.0-0.7) 10^3/uL Baso # (Auto) 0.0 (0.0-0.1) 10^3/uL Abs Immat Gran (auto) 0.01 (0.00-0.03) 10^3/uL Imm/Tot Granulo (auto) 0.1 (0.0-0.5) % PT 10.2 (9.0-11.6) sec INR 0.96 Sodium 140 (136-145) mmol/L Potassium 3.9 (3.5-5.1) mmol/L Chloride 103 (98-107) mmol/L Carbon Dioxide 27.7 (21.0-32.0) mmol/L Anion Gap 13.2 BUN 21.0 H (7.0-18.0) mg/dL Creatinine 0.99 (0.70-1.30) mg/dL Est GFR ( Amer) >60 (>=60) Est GFR (Non-Af Amer) >60 (>=60) BUN/Creatinine Ratio 21.2 Glucose 96 (74-106) mg/dL Calcium 9.3 (8.5-10.1) mg/dL Total Bilirubin 0.6 (0.2-1.0) mg/dL AST 19 (15-37) U/L ALT 30 (16-63) U/L Alkaline Phosphatase 52 (46-116) U/L Troponin I High Sens 16.6 (4.0-76.1) pg/mL NT-Pro-B Natriuret Pep 202.0 (<=900.0) pg/mL Total Protein 7.4 (6.4-8.2) g/dL Albumin 4.0 (3.4-5.0) g/dL Globulin 3.4 g/dL Albumin/Globulin Ratio 1.2 TSH 2.235 (0.358-3.740) uIU/mL Imaging Data Chest x-ray: Attestation: I have reviewed the pertinent imaging results. Radiologist's impression: ITS Impressions Chest X-Ray 02/04/24 17:04 Impression: No radiographic evidence of acute cardiopulmonary process. Electronically authenticated by: TIGIST ORTIZ Date: 02/04/2024 18:22 ECG Data Attestation: I personally reviewed and interpreted this ECG as follows: (Normal sinus rhythm at a rate of 69, no acute ST elevation or ectopy. EKG reviewed by attending physician) Discharge Plan Discharge Stand Alone Forms: Work/School Release, Portal Instructions Chief Complaint: Recheck/Abnormal Lab/Rx Clinical Impression: Hypertension Patient Disposition: Home, Self-Care Time of Disposition Decision: 18:24 Condition: Good Prescriptions / Home Meds: No Action amlodipine 10 mg tablet 10 mg PO DAILY Qty: 30 0RF losartan-hydrochlorothiazide [Hyzaar] 100-25 mg tablet 1 tab PO DAILY Qty: 30 0RF Print Language: Macedonian Instructions: Hypertension (ED) Referrals: MICHAEL WILKES [Primary Care Provider] - 1 week Discharge Date/Time: 02/04/24 18:43
[2024-02-04] MEDS: ENALAPRILAT DIHYDRATE 1.25 MG/ML VIAL IV (17:19)
[2024-02-04] MEDS: LABETALOL HCL 20 MG/4 ML SYRINGE IVP (17:19)
[2024-02-04 17:26] LABS: Basophils Percent Auto 0.5 % (0.2-2.0); Eosinophils Absolute Auto 0.1 10^3/uL (0.0-0.7); Eosinophils Percent Auto 1.2 % (0.9-7.0); Hematocrit 44.9 % (42.0-54.0); Immature Granulocytes Abs Auto 0.01 10^3/uL (0.00-0.03); Immature Granulocytes Pct Auto 0.1 % (0.0-0.5); Lymphocytes Absolute Auto 2.6 10^3/uL (1.2-3.8); Lymphocytes Percent Auto 34.7 % (20.5-60.0); Mean Corpuscular HGB Conc 33.4 g/dL (29.9-35.2); Mean Corpuscular Hemoglobin 32.1 pg (25.9-34.0); Mean Corpuscular Volume 95.9 fL (80.0-94.0); Mean Platelet Volume 10.1 fL (9.5-13.5); Monocytes Absolute Auto 0.8 10^3/uL (0.3-0.8); Monocytes Percent Auto 10.4 % (1.7-12.0); Neutrophils Percent Auto 53.1 % (43.0-75.0); Platelet Count 204 10^3/uL (150-450); Red Blood Count 4.68 10^6/uL (4.70-6.10); Red Cell Distribution Width 12.5 % (11.0-15.0); White Blood Count 7.6 10^3/uL (4.0-11.0)
[2024-02-04 17:42] LABS: INR 0.96; Prothrombin Time 10.2 sec (9.0-11.6)
[2024-02-04 17:47] LABS: Alanine Aminotransferase 30 U/L (16-63); Albumin Globulin Ratio 1.2; Alkaline Phosphatase 52 U/L (46-116); Anion Gap 13.2; Aspartate Amino Transferase 19 U/L (15-37); BUN Creatinine Ratio 21.2; Bilirubin Total 0.6 mg/dL (0.2-1.0); Calcium 9.3 mg/dL (8.5-10.1); Carbon Dioxide 27.7 mmol/L (21.0-32.0); Chloride 103 mmol/L (98-107); Estimated GFR (African America >60 (>=60); Estimated GFR (Non-African Ame >60 (>=60); Globulin 3.4 g/dL; Glucose 96 mg/dL (74-106); Potassium 3.9 mmol/L (3.5-5.1); Sodium 140 mmol/L (136-145); Thyroid Stimulating Hormone 2.235 uIU/mL (0.358-3.740); Total Protein 7.4 g/dL (6.4-8.2); Troponin I High Sensitivity 16.6 pg/mL (4.0-76.1)
[2024-02-04] MEDS: HYDRALAZINE HCL 20 MG/ML VIAL 10 MG IVP (18:03)
== END 2024-02-04 18:43 | disposition home or self-care (01) ==
PROVIDERS: Physician Assistant; Emergency Provider Emergency Medicine; Family Provider Internal Medicine
DX: I10 Essential (primary) hypertension (principal); Z87.891 Personal history of nicotine dependence
CPT/HCPCS: 36415; 71045; 80053; 83880; 84443; 84484; 85025; 85610; 93005; 96374; 96375; 99285; J0360; J1920

== ENCOUNTER 2024-02-21 08:04 | Outpatient (OUT) | payer OTHER, SELFPAY ==
--- OUTSIDE RECORDS SUMMARY | 2024-02-21 08:08 | XMS_ITS | CCD ---
Author Organization [facility] Inform ion Partnership [facility] Care Team Providers Care Telephone Switchboard Operator Name Role Phone CÉSAR GRAVES Attending Unavailable WILKESMICHAEL CASTRO Attending Unavailabl e WILKESMICHAEL NAVARRO Attending Unavailabl e Encounters Encounter Date Encounter Type Care Provider Facility Start: 02-17-2024 End: 02-17-2024 ambulatory MICHAEL WILKES Not Available Start: 02-04-2024 End: 02-04-2024 ambulatory MICHAEL WILKES Not Available Start: 10-27-2023 End: 10-27-2023 ambulatory ILYACLARKE LEY Not Available Payers Date Payer Category Payer Unknown [id number] 1960 Unknown [id number] 1960 Unknown [id number] 1960 Unknown [id number] Summary Purpose Family History No Family History Records Found Advance Directives No Advanced Directives Records Found Additional Source Comments (unrecognized sect ion and content) No Status Records Found INFORMATION SOURCE (unrecogn ized section and content) DATE CREATED AUTHOR 02/18/2024 [facility] EPIC FOR RECORDS PERTAINING TO PATIENTS WHO ARE OR HAVE BEEN ENROLLED IN A CHEMICAL DEPENDENCY/SUBSTANCEABUSE PROGRAM, SOME INFORMATION MAY BE OMITTED. This clinical summary was aggregated from multiple sources. Caution should be exercised in using it in the provision of clinical care. This summary normalizes information from multiple sources, and as a consequence, information in this document may materially change the coding, format and clinical context of patient data. In addition, data may be omitted in some cases. CLINICAL DECISIONS SHOULD BE BASED ON THE PRIMARY CLINICAL RECORDS. [facility]. provides no warranty or guarantee of the accuracy or completeness of information in this document.
[2024-02-21 08:28] LABS: Basophils Absolute Auto 0.1 10^3/uL (0.0-0.1); Basophils Percent Auto 0.8 % (0.2-2.0); Eosinophils Absolute Auto 0.2 10^3/uL (0.0-0.7); Eosinophils Percent Auto 2.5 % (0.9-7.0); Hematocrit 44.3 % (42.0-54.0); Hemoglobin 15.3 g/dL (14.0-18.0); Immature Granulocytes Abs Auto 0.01 10^3/uL (0.00-0.03); Immature Granulocytes Pct Auto 0.2 % (0.0-0.5); Lymphocytes Absolute Auto 2.4 10^3/uL (1.2-3.8); Lymphocytes Percent Auto 37.7 % (20.5-60.0); Mean Corpuscular HGB Conc 34.5 g/dL (29.9-35.2); Mean Corpuscular Hemoglobin 32.3 pg (25.9-34.0); Mean Corpuscular Volume 93.7 fL (80.0-94.0); Mean Platelet Volume 9.6 fL (9.5-13.5); Monocytes Absolute Auto 0.6 10^3/uL (0.3-0.8); Monocytes Percent Auto 9.3 % (1.7-12.0); Neutrophils Absolute Auto 3.2 10^3/uL (1.4-6.5); Neutrophils Percent Auto 49.5 % (43.0-75.0); Platelet Count 209 10^3/uL (150-450); Red Blood Count 4.73 10^6/uL (4.70-6.10); Red Cell Distribution Width 11.7 % (11.0-15.0); White Blood Count 6.5 10^3/uL (4.0-11.0)
[2024-02-21 08:40] LABS: Estimated Average Glucose 100 mg/dL; Glycohemoglobin A1C 5.1 % (4.5-6.2)
[2024-02-21 09:06] LABS: Alanine Aminotransferase 22 U/L (16-63); Albumin Level 3.6 g/dL (3.4-5.0); Alkaline Phosphatase 47 U/L (46-116); Anion Gap 10.5; Aspartate Amino Transferase 15 U/L (15-37); BUN Creatinine Ratio 32.1; Bilirubin Total 0.8 mg/dL (0.2-1.0); Calcium 8.8 mg/dL (8.5-10.1); Carbon Dioxide 29.2 mmol/L (21.0-32.0); Chloride 101 mmol/L (98-107); Cholesterol 222 mg/dL (<=200); Estimated GFR (African America >60 (>=60); Estimated GFR (Non-African Ame >60 (>=60); Globulin 3.5 g/dL; Glucose 109 mg/dL (74-106); HDL Cholesterol 73 mg/dL (40-60); Potassium 3.7 mmol/L (3.5-5.1); Sodium 137 mmol/L (136-145); TSH W/ REFLEX FT4 1.761 uIU/mL (0.358-3.740); Total Protein 7.1 g/dL (6.4-8.2); Triglycerides 88 mg/dL (<=150); VLDL CHOLESTEROL 17.6 mg/dL
== END 2024-02-21 08:05 | disposition home or self-care (01) ==
LOC: LAB 08:05
PROVIDERS: Family Provider Internal Medicine
DX: Z00.00 Encounter for general adult medical examination without abnormal findings (principal); I10 Essential (primary) hypertension; I65.23 Occlusion and stenosis of bilateral carotid arteries; E78.5 Hyperlipidemia, unspecified
CPT/HCPCS: 36415; 80053; 80061; 83036; 84443; 85025

== ENCOUNTER 2024-03-03 15:10 | Outpatient (OUT) | payer OTHER, SELFPAY ==
--- NOTE | 2024-03-03 15:00 | CA_ITS ---
Patient Name: YOCASTA KRUGER MR#: [id number] : 1960 Exam Date: 03/03/2024 Ordering Doctor: DR. Avel Nation M.D. ECHOCARDIOGRAM REPORT PROCEDURE: CA ECHO DOPPLER COMPLETE INDICATIONS: Edema of both legs COMPARISON: None. DESCRIPTION: COMPLETE ECHOCARDIOGRAM Real-time transthoracic echocardiography with 2D, M-mode, spectral and color flow Doppler performed. QUALITY: Technical quality was good. LEFT VENTRICLE: Normal chamber size. Moderate concentric left ventricular hypertrophy. LV EF: Global left ventricular systolic function is hyperdynamic; visually estimated ejection fraction is 65 to 70%. No wall motion abnormalities. DIASTOLIC: Diastolic function is indeterminate. ATRIAL SEPTUM: Inadequately seen. LEFT ATRIUM: Moderate dilatation. RIGHT ATRIUM: Mild dilatation. RIGHT VENTRICLE: Normal chamber size. Normal right ventricular systolic function. TRICUSPID VALVE: Normal mobility and thickness. No stenosis with mild regurgitation. No evidence of pulmonary hypertension. RVSP 28mmHg MITRAL VALVE: Normal mobility and thickness. No evidence of mitral valve stenosis. There is no mitral annular calcification. No mitral regurgitation. AORTIC VALVE: Normal trileaflet appearance. Mildly calcified aortic valve. Normal leaflet mobility. No evidence of aortic valve stenosis. No aortic regurgitation. AORTIC ROOT: Normal diameter and appearance. PULMONIC VALVE: Normal thickness and mobility. No stenosis. Trivial regurgitation. PERICARDIUM: Anterior free space; trivial effusion versus fat pad. IVC: Collapses with inspirations. Normal size. CONCLUSION: 1. Global left ventricular systolic function is hyperdynamic; visually estimated ejection fraction is 65 to 70% 2. Diastolic function is indeterminate 3. Normal right ventricular size and systolic function 4. Moderate left ventricular hypertrophy 5. Biatrial enlargement 6. Mild tricuspid regurgitation 7. Anterior free space; trivial effusion versus fat pad Adult Echocardiography Procedure Report Left Ventricle LVEDD (3.7 - 5.6 cm): 4.19 cm LVESD (2.2 - 4.0 cm): 2.60 cm LVIVS thickness (0.6 - 1.2 cm): 1.57 cm LVPW thickness (0.5 - 1.0 cm): 1.49 cm e': 0.06 m/s E - e': 9.61 LVOT Max Gradient: 7.66 mm[Hg] LVOT Area (cm2): 1.38 m/s Peak Velocity (LVOT): 1.38 m/s Mean Velocity (LVOT): 1.02 m/s LVOT Diameter 2.19 cm Left Ventricular Ejection Fraction: 71.29 % Left Atrium LA Volume Index (2D A2C): 50.04 ml/m2 Left Atrium Systolic Dimension: 4.19 cm Mitral Valve MV E to A Ratio: 0.58 Mitral Valve A-Wave Peak Velocity: 1.00 m/s Mitral Valve E-Wave Peak Velocity: 0.59 m/s Right Ventricle RV Internal Diastolic Dimension: 3.70 cm Aorta AO Root Diam: 3.38 cm Ascending Ao Diam: 3.11 cm Aortic Valve AoV Area (Peak Isauro): 2.52 cm2, 2.62 cm2 AoV Area (VTI): 2.56 cm2, 2.66 cm2 Peak Velocity(Antegrade Flow): 1.99 m/s, 2.15 m/s Peak Gradient(Antegrade Flow): 15.76 mm[Hg], 18.43 mm[Hg] Mean Velocity(Antegrade Flow): 1.33 m/s, 1.37 m/s Mean Gradient(Antegrade Flow): 8.07 mm[Hg], 8.85 mm[Hg] Velocity Time Integral: 40.40 cm, 43.66 cm Tricuspid Valve Peak Velocity (Regurgitant Flow): 2.15 m/s, 2.50 m/s Pulmonic Valve Mean Gradient: 3.25 mm[Hg], 3.30 mm[Hg] Mean Velocity: 0.83 m/s, 0.85 m/s Peak Velocity: 1.25 m/s Peak Gradient: 6.51 mm[Hg], 5.93 mm[Hg] Right Atrium Right Atrium Systolic Pressure: 70.09 ml, 70.09 ml Dictated by: Zachary Rubio M.D. on 03/05/2024 at 12:39 Approved by: Zachary Rubio M.D. on 03/05/2024 at 12:44
== END 2024-03-03 15:11 | disposition home or self-care (01) ==
LOC: CARD 15:10
PROVIDERS: Family Provider Internal Medicine; Visit Provider Internal Medicine Cardiovascular Disease
DX: R60.0 Localized edema (principal)
CPT/HCPCS: 93306

== ENCOUNTER 2024-03-20 10:02 | Outpatient (OUT) | payer OTHER, SELFPAY ==
--- NOTE | 2024-03-20 | US_ITS ---
[address] [address] Patient Name: YOCASTA KRUGER MRN: [id number] date: 1960 Sex: M Assigned Patient Location: Current Patient Location: Accession/Order Number: [id number] Exam Date: 03/20/2024 10:15 Report Date: 03/22/2024 13:00 At the request of: MICHAEL WILKES Procedure: US renal doppler EXAM: US renal doppler HISTORY: Resistant hypertension COMPARISON: None. TECHNIQUE: Grayscale, color and Doppler FINDINGS: Suboptimal visualization due to bowel gas The right kidney is normal in size, contour and echotexture measuring 10.8 x 5.5 x 5.4 cm. the cortex measures 1.7 cm. No solid cortical mass or hydronephrosis. The left kidney is normal in size, contour and echotexture measuring 11.5 x 5.8 x 5.2 cm. the cortex measures 202 cm. No solid cortical mass or hydronephrosis Urinary bladder volume: 205 mL Doppler: Aorta: 166 cm/s Right renal artery: Proximal: Not observed Mid: Not observed Distal: 137/36 cm/s Left renal artery: Proximal: Not observed Mid: Not observed Distal: 99/23 cm/s US/US renal doppler IMPRESSION: Nonvisualization of the proximal to mid bilateral renal arteries secondary to bowel gas. The distal renal artery flow velocities are within normal limits Normal grayscale appearance Electronically authenticated by: EDI GARCIA Date: 03/22/2024 13:00
--- OUTSIDE RECORDS SUMMARY | 2024-03-20 10:04 | XMS_ITS | CCD ---
Author Organization [facility] Care Team Providers Care Bailiff Name Role Phone CÉSAR GRAVES Attending NISHA Chris Attending NISHA Allan Attending EFRAIN Isaac Attending Unavailable Problems Problem Classification Problem Date Documented Da te Episodic/Chronic Disorders of lipid metabolism (2 sources) Pure hypercholesterole hal, unspecified; Translations: [Pure hypercholesterole hal, unspecified] Onset: 02-20-2024 Chronic Residual codes; unclassified (2 sources) Localized edema; Translations: [Localized edema] Onset: 02-23-2024 Episodic Results Test Name Value Interpretation Reference Range Facil ity Office Visiton 02-23-2024 Follow-up visit [id number] Yocasta Rapp 1960 M Date Provider Department Center 02/23/2024 [id number] CHAPA GIOVANNA [place] Family History Problem Relation Age of Onset No Known Problems Mother No Known Problems Father Family Status - Relation Status Age at Mother Father Level of Service:11201 [place] OFFICE/OUTPATIENT NEW MODERATE MDM 45 MINUTES Reason for Visit and Comments: New Patient [632] Hypertension [121379] - Pt is here per Nisha Wilkes Normal [facility] Encounters Encounter Date Encounter Type Care Provider Facility Start: 02-23-2024 End: 02-23-2024 ambulatory EFRAIN CHAPA [facility] Start: 02-17-2024 End: 02-17-2024 ambulatory NISHA WILKES Not Available Start: 02-04-2024 End: 02-04-2024 ambulatory NISHA WILKES Not Available Start: 10-27-2023 End: 10-27-2023 ambulatory CÉSAR GRAVES Not Available Payers Date Payer Category Payer Unknown [id number] 1960 Unknown [id number] 1960 Unknown [id number] [id number] [id number] 1960 Unknown [id number] Progress note 02-23-2024 Note Date & Type Note Facility 02-23-2024 Note [facility] Note Reason for cardiology consult: Hypertension Chief Complaint: high blood pressure, occasional edema HPI: Yocasta Rapp is a 63 y.o. male without prior cardiac history, he has history of hypertension, hypertension lipidemia. No prior cardiac history. No history of diabetes mellitus. He was in [facility] in October 2023 with double vision, headache and hypertensive emergency. At that time the neck CTA showed mild to moderate carotid disease but there was no evidence of CVA. Has been watching his blood pressure at home twice a day and he states in the morning it is good in the 120/75 however in the evening goes up to 150s to 160s. He works at [employer] and he is active at his job and he walks without any chest pain or shortness of breath on exertion. Denies orthopnea or paroxysmal nocturnal dyspnea or dizziness or palpitations. He admits legs edema which is better now. He snores but not loudly. He does not stop breathing and he is not sleepy or tired during the daytime. He smoked only in his 20s and he quit long time ago. He used to drink 1 beer and 3-4 shots every night for about 30 years he is currently down to 2 drinks a week. He occasionally smokes marijuana. No other illicit drugs He denies family history of coronary artery disease. His father had hypertension Cardiology ROS: GENERAL: Denies fever, chills, night sweats, weight loss. HEENT: Denies changes in vision, photophobia, changes in hearing, epistaxis, oral bleeding. CARDIOVASCULAR: Denies chest pain, exertional dyspnea, orthopnea/PND, palpitations, lightheadedness/dizziness. He reports legs edema RESPIRATORY: Denies SOB, coughing, wheezing GI: Denies abdominal pain, nausea/vomiting, heartburn, melena/hematochezia. RENAL: Denies dysuria, hematuria, flank pain. MSK: Denies muscle weakness/pain, arthralgias/joint pain. NEUROLOGIC: Denies LOC, weakness, numbness, headaches. SKIN: Denies abnormal rashes or bleeding. PSYCH: Denies significant anxiety, depression, sleep disturbances. Past Medical History He has a past medical history of Hypertension. Surgical History He has no past surgical history on file. Social History He reports that he has never smoked. He has never used smokeless tobacco. He reports current alcohol use of about 8.0 standard drinks of alcohol per week. No history on file for drug use. Family History Family History Problem Relation Name Age of Onset No Known Problems Mother No Known Problems Father Allergies Patient has no known allergies. Medications Current Outpatient Medications: amLODIPine (Norvasc) 10 mg tablet, Take 10 mg by mouth in the morning., Disp: , Rfl: losartan-hydrochlorothiazide (Hyzaar) 100-25 mg tablet, Take 1 tablet by mouth in the morning., Disp: , Rfl: metoprolol succinate XL (Toprol-XL) 25 mg 24 hr tablet, Take 25 mg by mouth in the morning., Disp: , Rfl: Last Recorded Vitals Visit Vitals BP 154/86 (BP Location: Right arm, Patient Position: Sitting) Pulse 65 Ht 1.727 m (5' 8 ) Wt 94.3 kg (208 lb) SpO2 96% BMI 31.63 kg/m??? Smoking Status Never BSA 2.13 m??? Physical Examination: GENERAL: alert and oriented x3, well developed, in no acute distress. HEAD: atraumatic, normocephalic. EYES: UMU, EOMI. NECK: trachea midline, no JVD present, no carotid bruits present. CARDIAC: S1, S2 present. RRR. No murmur, rubs, or gallops. RESPIRATORY: CTAB, no increased effort of breathing, no rales, rhonchi, or wheezing. ABDOMEN: soft, nontender, nondistended. EXTREMITIES: Trace lower extremity edema, on the left more than on the right. No rash/skin discoloration present. NEURO: strength/sensation equal and symmetric in bilateral upper and lower extremities. PSYCH: appropriate mood, affect, and judgement. Labs: Labs from 02/04/2024 White blood count 7.6, hemoglobin 15, hematocrit 44.9, platelets 204 INR 0.96 Sodium 140, potassium 3.9, BUN 21, creatinine 0.99, GFR above 60, glucose 96, calcium 9.3 Total bilirubin 0.6, AST 19, ALT 30, alk phos 52, total protein 7.4 BNP 202 TSH 2.235 10/24/2023 Cholesterol 222, HDL 82, LDL 124, triglyceride 84 10/27/2023 HbA1c 5.5% Last Images: EKG 02/04/2024 showed sinus rhythm and nonspecific ST change Chest x-ray 02/04/2024 Impression: No radiographic evidence of acute cardiopulmonary process. CTA neck 10/24/2023 IMPRESSION: Mild stenosis at origin of the right and moderate stenosis at origin of the left internal carotid arteries. No CT evidence of embolus or severe stenosis or dissection in the major arteries in the current study. Assessment and Plan: Hypertension, has been difficult to control. Currently on Toprol-XL, losartan/hydrochlorothiazide and amlodipine. He follows low-salt diet Hyperlipidemia, LDL 124 Carotid disease, mild on the right, moderate on the left neck CT angiogram in October 2023 Legs edema, could be due to amlodipine but (more content not included)... [facility] Summary Purpose Family History No Family History Records FoundNo Family History Records Found Advance Directives No Advanced Directives Records FoundNo Advanced Directives Records Found Additional Source Comments (unrecognized sect ion and content) No Status Records FoundNo Status Records Found INFORMATION SOURCE (unrecogn ized section and content) DATE CREATED AUTHOR 02/18/2024 [facility] DATE CREATED AUTHOR AUTHOR'S ORGANIZ ATION 02/29/2024 [facility] FOR RECORDS PERTAINING TO PATIENTS WHO ARE [...] BE BASED ON THE PRIMARY CLINICAL RECORDS. [employer] [facility]. provides no warranty or guarantee of the accuracy or completeness of information in this document.
== END 2024-03-20 10:03 | disposition home or self-care (01) ==
LOC: US 10:02
PROVIDERS: Family Provider Internal Medicine
DX: I10 Essential (primary) hypertension (principal); I1A.0 Resistant hypertension
CPT/HCPCS: 76775; 93975

== ENCOUNTER 2024-05-01 08:13 | Outpatient (OUT) | payer OTHER, SELFPAY ==
--- OUTSIDE RECORDS SUMMARY | 2024-05-01 08:16 | XMS_ITS | CCD ---
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 Role Phone EFRAIN CHAPA Attending Unavailable Jori Colindres MD Primary Care Provider [phone] Naheed NICOLE, Nisha Swift CÉSAR GRAVES Attending Unavailable NAHEED, NISHA Attending Unavailabl e NISHA WILKES Attending Unavailabl e NAHEED, NISHA Attending Unavailabl e NAHEED, NISHA Attending Unavailabl e Medications Current Medications Medication Drug Class(es) Dates Sig (Normalized) Sig (Original) amLODIPine 10 mg oral tablet (6 sources) Dihydropyridine Calcium Channel Gabriella Start: 02-17-2024 take 1 tablet by mouth once daily amLODIPine (Norvasc) 10 MG tablet Indications: Primary hypertension (CMS/HCC) Take 1 tablet (10 mg) by mouth Daily 30 tablet 02/17/2024 Active atorvastatin 20 mg oral tablet (5 sources) HMG-CoA Reductase Inhibitor Start: 02-23-2024 take 1 tablet by mouth once daily atorvastatin (Lipitor) 20 MG tablet Take 20 mg by mouth Daily 02/23/2024 Active hydrALAZINE hydrochloride 25 mg oral tablet (7 sources) Arteriolar Vasodilator Start: 04-22-2024 End: 04-22-2025 take 2 tablets by mouth in the morning hydrALAZINE (Apresoline) 25 MG tablet Indications: Resistant hypertension (CMS/HCC) Take 2 tablets (50 mg) by mouth in the morning and 2 tablets (50 mg) before bedtime. 120 tablet 11 04/22/2024 04/22/2025 Active Start: 03-18-2024 End: 03-18-2025 take 1 tablet by mouth in the morning hydrALAZINE (Apresoline) 25 MG tablet Indications: Resistant hypertension (CMS/HCC) Take 1 tablet (25 mg) by mouth in the morning and 1 tablet (25 mg) before bedtime. 60 tablet 11 03/18/2024 04/22/2024 Discontinued (Dose adjustment) hydroCHLOROthiazide 25 mg / losartan potassium 100 mg oral tablet (6 sources) Thiazide Diuretic, Angiotensin 2 Receptor Gabriella Start: 02-17-2024 take 1 tablet by mouth once daily losartan-hydroCHLOROthiazide (Hyzaar) 100-25 MG tablet Indications: Primary hypertension (CMS/HCC) Take 1 tablet by mouth Daily 30 tablet 02/17/2024 Active 24 hr metoprolol succinate 50 mg extended release oral tablet (8 sources) beta-Adrenerg ic Gabriella Start: 03-18-2024 End: 03-18-2025 take 1 tablet by mouth once daily metoprolol succinate XL (Toprol-XL) 50 MG 24 hr tablet Indications: Resistant hypertension (CMS/HCC) Take 1 tablet (50 mg) by mouth Daily Do not crush or chew. 30 tablet 11 03/18/2024 03/18/2025 Active Start: 02-17-2024 End: 02-16-2025 take 1 tablet by mouth once daily metoprolol succinate XL (Toprol-XL) 25 MG 24 hr tablet Indications: Primary hypertension (CMS/HCC) , Carotid stenosis, bilateral Take 1 tablet (25 mg) by mouth Daily Do not crush or chew. 30 tablet 2 02/17/2024 03/18/2024 Discontinued (Dose adjustment) Problems Active Problems Problem Classification Problem Date Documented Da te Episodic/Chronic Disorders of lipid metabolism (8 sources) Pure hypercholesterolemi a, unspecified; Translations: [Hyperlipidemia] Onset: 10-27-2023 Chronic Essential hypertension (16 sources) Essential hypertension; Translations: [Essential (primary) hypertension] Onset: 10-27-2023 10-27-2023 Chronic Heart valve disorders (6 sources) Aortic valve calcification; Translations: [Nonrheumatic aortic valve disorder, unspecified] Onset: 10-28-2023 10-28-2023 Chronic Occlusion or stenosis of precerebral arteries (6 sources) Bilateral stenosis of carotid arteries; Translations: [Occlusion and stenosis of bilateral carotid arteries] Onset: 10-27-2023 10-27-2023 Chronic Other and ill-defined heart disease (6 sources) Left ventricular hypertrophy; Translations: [Cardiomegaly] Onset: 10-28-2023 10-28-2023 Chronic Residual codes; unclassified (2 sources) Localized edema; Translations: [Localized edema] Onset: 02-23-2024 Episodic Past or Other Problems Problem Classification Problem Date Documented Da te Episodic/Chronic Heart valve disorders (6 sources) Systolic murmur; Translations: [Cardiac murmur, unspecified] Onset: 10-27-2023 10-27-2023 Episodic Other ear and sense organ disorders (6 sources) Bilateral tinnitus; Translations: [Tinnitus, bilateral] Onset: 10-27-2023 10-27-2023 Episodic Results Test Name Value Interpretation Reference Range Facil ity 36on 03-19-2024 36 Regarding echo and labs: MD Yoly Gonzalez MA Inform patient that his echo looked normal except for thickness of the heart muscle due to uncontrolled hypertension. Also the heart appears hyperdynamic indicating that he is probably a little dehydrated so advise him to drink enough water at least 1500 cc/day Add Aldactone 50 mg daily. Advise the patient it is very important to follow low-salt diet. Check BMP in 1 week. Check blood pressure twice daily for 2 weeks and send the log. Spoke with patient and informed him of result, new medication, and lab order. He will bring in BP log in a few weeks with updated readings s/p new med. He verbalized understanding. Orders sent. [facility] Office Visiton 02-23-2024 Follow-up visit [id number] Yocasta Rapp 1960 M Date Provider Department Center 02/23/2024 [id number] CHAPA [facility] Family History Problem Relation Age of Onset No Known Problems Mother No Known Problems Father Family Status - Relation Status Age at Mother Father Level of Service:89933 LA OFFICE/OUTPATIENT NEW MODERATE MDM 45 MINUTES Reason for Visit and Comments: New Patient [632] Hypertension [312155] - Pt is here per Nisha Wilkes [facility] Vital Signs Date Time Vital Sign Value Performing Clinician Faci lity 04-22-2024 15:27-0500 Body height 175.3 cm Nisha Wilkes [employer] Work Phone: [facility] 04-22-2024 15:27-0500 Body mass index (BMI) [Ratio] 30.13 kg/m2 Nisha Wilkes [employer] Work Phone: [facility] 04-22-2024 15:27-0500 Body temperature 96.91 [degF] Nisha Wilkes [employer] Work Phone: [facility] 04-22-2024 15:27-0500 Body weight 92.53 kg Nisha Wilkes [employer] Work Phone: [facility] 04-22-2024 15:27-0500 Diastolic blood pressure 82 mm[Hg] Nisha Wilkes [employer] Work Phone: [facility] 04-22-2024 15:27-0500 Heart rate 66 /min Nisha Wilkes [employer] Work Phone: [facility] 04-22-2024 15:27-0500 Respiratory rate 16 /min Nisha Wilkes [employer] Work Phone: [facility] 04-22-2024 15:27-0500 SaO2% (BldA) [Mass fraction] 96 % Nisha Wilkes [employer] Work Phone: [facility] 04-22-2024 15:27-0500 Systolic blood pressure 200 mm[Hg] Nisha Wilkes [employer] Work Phone: [facility] 03-18-2024 13:52-0400 Body height 172.7 cm Nisha Wilkes [employer] Work Phone: [facility] 03-18-2024 13:52-0400 Body mass index (BMI) [Ratio] 31.63 kg/m2 Nisha Wilkes [employer] Work Phone: [facility] 03-18-2024 13:52-0400 Body temperature 96.4 [degF] Nisha Wilkes [employer] Work Phone: [facility] 03-18-2024 13:52-0400 Body weight 94.35 kg Nisha Hsuzpatrick [employer] Work Phone: [facility] 03-18-2024 13:52-0400 Diastolic blood pressure 92 mm[Hg] Nisha Wilkes [employer] Work Phone: [facility] 03-18-2024 13:52-0400 Heart rate 63 /min Nisha Wilkes [employer] Work Phone: [facility] 03-18-2024 13:52-0400 Respiratory rate 16 /min Nisha Wilkes [employer] Work Phone: [facility] 03-18-2024 13:52-0400 SaO2% (BldA) [Mass fraction] 98 % Nisha Wilkes [employer] Work Phone: [facility] 03-18-2024 13:52-0400 Systolic blood pressure 190 mm[Hg] Nisha Wilkes [employer] Work Phone: [facility] Encounters Encounter Date Encounter Type Care Provider Facility Start: 04-22-2024 End: 04-22-2024 Office outpatient visit 15 minutes Nisha Armandopatrick [employer] Work Phone: [facility] Comment on above: Primary hypertension (CMS/HCC) (Primary Dx); Resistant hypertension (CMS/HCC) Start: 04-22-2024 End: 04-22-2024 ambulatory NISHA WILKES Not Available Start: 04-22-2024 End: 04-22-2024 Bamboo flowsheet Nisha Wilkes [employer] Work Phone: [facility] Start: 04-22-2024 End: 04-22-2024 Bamboo flowsheet Nisha Wilkes [employer] Work Phone: [facility] Start: 03-18-2024 End: 03-18-2024 Bamboo flowsheet Nisha Wilkes [employer] Work Phone: [facility] Start: 03-18-2024 End: 03-18-2024 Bamboo flowsheet Nisha Wilkes [employer] Work Phone: [facility] Start: 03-18-2024 End: 03-18-2024 Office outpatient visit 15 minutes Nisha Wilkes [employer] Work Phone: [facility] Comment on above: Resistant hypertensi on (CMS/HCC) (Primary Dx); Essential (primary) hypertension (CMS/HCC); Primary hypertension (CMS/HCC) Start: 03-18-2024 End: 03-18-2024 ambulatory NISHA WILKES Not Available Start: 02-23-2024 End: 02-23-2024 ambulatory [facility] Start: 02-17-2024 End: 02-17-2024 ambulatory NISHA WILKES Not Available Start: 02-04-2024 End: 02-04-2024 ambulatory NISHA VOK Not Available Start: 02-04-2024 Patient encounter status Yesica Wilkes [employer] Work Phone: [facility] Start: 10-27-2023 End: 10-27-2023 ambulatory CÉSAR GRAVES Not Available Plan of Treatment Date Care Activity Detail Author Start: 04-22-2025 Screening for malign ant neoplasm of colon Colorectal Cancer Screening [facility] Comment on above: Postponed from 05/10 (Patient Refused) Start: 04-22-2024 End: 04-22-2024 Patient encounter procedure [facility] Comment on above: Arrived Start: 03-18-2024 End: 03-18-2024 Patient encounter procedure 03/18/2024 2:00 PM EDT Office Visit [facility] [address] [place] [address] Nisha Wilkes NP [address] [place] [address] Arrived [facility] Comment on above: Arrived Start: 03-18-2024 End: 03-18-2025 US.doppler Renal artery Vascular US renal artery duplex complete Imaging Routine Resistant hypertension (CMS/HCC) Essential (primary) hypertension (CMS/HCC) Expected: 03/18/2024, Expires: 03/18/2025 [facility] Work Phone: Comment on above: Expected: 03/18/2024 , Expires: 03/18/2025 Start: 02-15-2024 Influenza vaccination Influenza Vacc ine (#1) [facility] Start: 1960 Screening for malign ant neoplasm of colon [facility] Payers Date Payer Category Payer Private Health Insurance [employer] [id number] 2022 Unknown [employer] [id number] 2022-Present [address] [place] [address] [id number] 2022 Unknown [id number] 1960 Unknown [id number] 1960 Unknown [id number] 1960 Unknown [id number] 1960 Unknown [id number] 1960 Unknown [id number] Social History Date Type Detail Facility Start: [facility]-04-[facility] Start: 02-04-2024 Tobacco use and exposure Smoke less tobacco non-user [facility] Start: 02-17-2024 End: 04-22-2024 Alcoholic beverage intake Current drinker of alcohol (finding) [facility] Start: 10-27-2023 End: 02-17-2024 Alcoholic beverage intake [facility] Start: 10-27-2023 End: 02-17-2024 Social connection and isolation panel [facility] Do you belong to any clubs or organizations such as caodaism groups, unions, fraternal or athletic groups, or school groups? No [facility] Are you now , , , , never or living with a partner? [facility] How often to you hav e a drink containing alcohol? 4 or more times a week [facility] How many standard dr inks containing alcohol do you have on a typical day? 5 or 6 [facility] How often do you hav e 6 or more drinks on 1 occasion? Never [facility] How hard is it for y ou to pay for the very basics like food, housing, medical care, and heating Not hard at all [facility] Do you feel stress - tense, restless, nervous, or anxious, or unable to sleep at night because your mind is troubled all the time - these days [OSQ] Not at all [facility] (I/We) worried wild er (my/our) food would run out before (I/we) got money to buy more. Never true [facility] Start: 1960 Sex assigned at Not on file [facility] NEGATED: Highlighted rowStart: NINF History of tobacco use Passive smoker [facility] History of Present illness Narrative 04-22-2024 Nisha Wilkes, BONNIE - 04/22/2024 4:02 PM Tammy Wilkes, BONNIE - 04/22/2024 3:30 PM Tammy Wilkes, BONNIE - 04/22/2024 3:30 PM EST Note Date & Type Note Facility 04-22-2024 History of Presen t illness Narrative Associated Problem(s): Primary hypertension (CMS/HCC) Pt was seen one month ago for resistant hypertension; Referrals sent to Cardiology and Vascular; Renal ultrasound Inconclusive due to gas obstructing on both sides. Carotid duplex indicative of Left ICA stenosis and Right ICA plaque. Echocardiogram shows EF of 65%-70% Moderate LVH Bi atrial Enlargement Mild Tricuspid Regurg Pt's BP remains elevated and higher in Left arm than right. Per Vascular- this may be attributed to carotid stenosis. Pt was advised to continue current regimen per vascular and measure BP in Left arm. BP logs reflect significantly elevated BP readings despite medication regimen. Pt reports he feels great and is unsure why he keeps having these readings. Pt states he adheres to medication regimen as directed. Currently taking: Amlodipine 10mg Losartan-HCTZ 100mg/25mg Metoprolol Succinate 50mg Hydralazine 25 mg BID Denies orthostatic changes, dizziness, cough, shortness of breath, swelling in extremities. Has decreased alcohol intake to 1 can of beer and 2 shots of whiskey 2-3 times per week. (Was 7 days per week before) BP logs are still consistently in 160's-180's systolic. BP in office today: 172/88 On RIGHT arm 200/82 on Left Arm Increase Hydralazine today to 50mg BID Diastolic BP WNL. Advised pt to continue checking BP twice per day and record results in log. Bring back to next visit. Images from the original note were not included. Subjective Patient ID: Yocasta Rapp is a 63 y.o. male who presents for No chief complaint on file.. HPI Review of Systems Objective Physical Exam Assessment/Plan Images from the original note were not included. Subjective Patient ID: Yocasta Rapp is a 63 y.o. male who presents for No chief complaint on file.. HPI Pt was seen one month ago for resistant hypertension; Referrals sent to Cardiology and Vascular; Renal ultrasound Inconclusive due to gas obstructing on both sides. Carotid duplex indicative of Left ICA stenosis and Right ICA plaque. Echocardiogram shows EF of 65%-70% Moderate LVH Bi atrial Enlargement Mild Tricuspid Regurg Pt's BP remains elevated and higher in Left arm than right. Per Vascular- this may be attributed to carotid stenosis. Pt was advised to continue current regimen per vascular and measure BP in Left arm. BP logs reflect significantly elevated BP readings despite medication regimen. Pt reports he feels great and is unsure why he keeps having these readings. Pt states he adheres to medication regimen as directed. Currently taking: Amlodipine 10mg Losartan-HCTZ 100mg/25mg Metoprolol Succinate 50mg Hydralazine 25 mg BID Denies orthostatic changes, dizziness, cough, shortness of breath, swelling in extremities. Has decreased alcohol intake to 1 can of beer and 2 shots of whiskey 2-3 times per week. (Was 7 days per week before) BP logs are still consistently in 160's-180's systolic. BP in office today: 172/88 On RIGHT arm 200/82 on Left Arm Increase Hydralazine today to 50mg BID Diastolic BP WNL. Advised pt to continue checking BP twice per day and record results in log. Bring back to next visit. Review of Systems Objective Physical Exam Assessment/Plan Problem List Items Addressed This Visit Primary hypertension (CMS/[facility]) (Chronic) Pt was seen one month ago for resistant hypertension; Referrals sent to Cardiology and Vascular; Renal ultrasound Inconclusive due to gas obstructing on both sides. Carotid duplex indicative of Left ICA stenosis and Right ICA plaque. Echocardiogram shows EF of 65%-70% Moderate LVH Bi atrial Enlargement Mild Tricuspid Regurg Pt's BP remains elevated and higher in Left arm than right. Per Vascular- this may be attributed to carotid stenosis. Pt was advised to continue current regimen per vascular and measure BP in Left arm. BP logs reflect significantly elevated BP readings despite medication regimen. Pt reports he feels great and is unsure why he keeps having these readings. Pt states he adheres to medication regimen as directed. Currently taking: Amlodipine 10mg Losartan-HCTZ 100mg/25mg Metoprolol Succinate 50mg Hydralazine 25 mg BID Denies orthostatic changes, dizziness, cough, shortness of breath, swelling in extremities. Has decreased alcohol intake to 1 can of beer and 2 shots of whiskey 2-3 times per week. (Was 7 days per week before) BP logs are still consistently in 160's-180's systolic. BP in office today: 172/88 On RIGHT arm 200/82 on Left Arm Increase Hydralazine today to 50mg BID Diastolic BP WNL. Advised pt to continue checking BP twice per day and record results in log. Bring back to next visit. Other Visit Diagnoses Resistant hypertension (CMS/HCC) Relevant Medications hydrALAZINE (Apresoline) 25 MG tablet documented in this encounter [facility] Instructions 04-22-2024 Patient Instructions Note Date & Type Note Facility 04-22-2024 Instructions Nisha Wilkes NP - 04/22/2024 3:30 PM EST Your blood pressure is TOO HIGH in the office today. Check your blood pressure at home twice per day, once in the morning and once in the evening. Goal <130/90. Record results in blood pressure log. Bring back with you to your next visit. Chest pain, shortness of breath, numbness/tingling in extremities, dizziness, slurred speech, or vision changes GO TO ER IMMEDIATELY!!!! documented in this encounter [facility] History of Present illness Narrative 03-18-2024 Nisha Wilkes NP - 03/18/2024 3:04 PM EDTBdimitri Wilkes NP - 03/18/2024 2:00 PM EDT Note Date & Type Note Facility 03-18-2024 History of Presen t illness Narrative Associated Problem(s): Primary hypertension (CMS/HCC) Pt saw both Cardiology and Vascular Carotid duplex indicative of Left ICA stenosis and Right ICA plaque. Echocardiogram shows EF of 65%-70% Moderate LVH Bi atrial Enlargement Mild Tricuspid Regurg Pt's BP remains elevated and higher in Left arm than right. Per Vascular- this may be attributed to carotid stenosis. Pt was advised to continue current regimen per vascular and measure BP in Left arm. BP logs reflect significantly elevated BP readings despite medication regimen. Pt reports he feels great and is unsure why he keeps having these readings. Pt states he adheres to medication regimen as directed. Currently taking: Amlodipine 10mg Losartan-HCTZ 100mg/25mg Metoprolol Succinate 25mg Denies orthostatic changes, dizziness, cough, shortness of breath, swelling in extremities. Has decreased alcohol intake to 1 can of beer and 3-4 shots of whiskey 2-3 times per week. (Was 7 days per week before) Today increased metoprolol to 50mg Initiated Hydralazine 25mg BID. Renal Artery Ultrasound ordered today. Advised pt to continue checking BP twice per day and record results in log. Bring back to next visit. Images from the original note were not included. Subjective Patient ID: Yocasta Rapp is a 63 y.o. male who presents for Hypertension and Med Refill. HPI Pt was seen one month ago for resistant hypertension; Referrals sent to Cardiology and Vascular; Carotid duplex indicative of Left ICA stenosis and Right ICA plaque. Echocardiogram shows EF of 65%-70% Moderate LVH Bi atrial Enlargement Mild Tricuspid Regurg Pt's BP remains elevated and higher in Left arm than right. Per Vascular- this may be attributed to carotid stenosis. Pt was advised to continue current regimen per vascular and measure BP in Left arm. BP logs reflect significantly elevated BP readings despite medication regimen. Pt reports he feels great and is unsure why he keeps having these readings. Pt states he adheres to medication regimen as directed. Currently taking: Amlodipine 10mg Losartan-HCTZ 100mg/25mg Metoprolol Succinate 25mg Denies orthostatic changes, dizziness, cough, shortness of breath, swelling in extremities. Has decreased alcohol intake to 1 can of beer and 3-4 shots of whiskey 2-3 times per week. (Was 7 days per week before) Today increased metoprolol to 50mg Initiated Hydralazine 25mg BID. Renal Artery Ultrasound ordered today. Advised pt to continue checking BP twice per day and record results in log. Bring back to next visit. Review of Systems Constitutional: Negative for activity change, appetite change, chills, diaphoresis, fatigue, fever and unexpected weight change. HENT: Negative for congestion, ear pain, rhinorrhea, sinus pressure, sinus pain, sneezing, sore throat, trouble swallowing and voice change. Eyes: Negative for visual disturbance. Respiratory: Negative for cough, chest tightness, shortness of breath and wheezing. Cardiovascular: Negative for chest pain, palpitations and leg swelling. Gastrointestinal: Negative for abdominal distention, abdominal pain, blood in stool, constipation, diarrhea and vomiting. Genitourinary: Negative for decreased urine volume, dysuria, flank pain, frequency, hematuria and urgency. Musculoskeletal: Negative for arthralgias, gait problem, joint swelling and myalgias. Skin: Negative for rash. Neurological: Negative for dizziness, tremors, syncope, weakness, light-headedness and headaches. Psychiatric/Behavioral: Negative for decreased concentration and suicidal ideas. The patient is not nervous/anxious. Hematological: Does not bruise/bleed easily. Endocrine: Negative for cold intolerance, heat intolerance, polydipsia, polyphagia and polyuria. Objective Physical Exam Vitals reviewed. Constitutional: Appearance: Normal appearance. HENT: Head: Normocephalic and atraumatic. Right Ear: Tympanic membrane normal. Left Ear: Tympanic membrane normal. Nose: Nose normal. Mouth/Throat: Mouth: Mucous membranes are moist. Pharynx: Oropharynx is clear. Eyes: Pupils: Pupils are equal, round, and reactive to light. Cardiovascular: Rate and Rhythm: Normal rate and regular rhythm. Pulses: Normal pulses. Heart sounds: Normal heart sounds. Pulmonary: Effort: Pulmonary effort is normal. Breath sounds: Normal breath sounds. Abdominal: General: Abdomen is flat. Bowel sounds are normal. Palpations: Abdomen is soft. Musculoskeletal: General: Normal range of motion. Cervical back: Normal range of motion. Skin: General: Skin is warm and dry. Capillary Refill: Capillary refill takes less than 2 seconds. Neurological: General: No focal deficit present. Mental Status: He is alert and oriented to person, place, and time. Psychiatric: Mood and Affect: Mood normal. Behavior: Behavior normal. Assessment/Plan Problem List Items Addressed This Visit Primary hypertension (CMS/HCC) (Chronic) Pt saw both Cardiology and Vascular Carotid duplex indicative of Left ICA stenosis and Right ICA plaque. Echocardiogram shows EF of 65%-70% Moderate LVH Bi atrial Enlargement Mild Tricuspid Regurg Pt's BP remains elevated and higher in Left arm than right. Per Vascular- this may be attributed to carotid stenosis. Pt was advised to continue current regimen per vascular and measure BP in Left arm. BP logs reflect significantly elevated BP readings despite medication regimen. Pt reports he feels great and is unsure why he keeps having these readings. Pt states he adheres to medication regimen as directed. Currently taking: Amlodipine 10mg Losartan-HCTZ 100mg/25mg Metoprolol Succinate 25mg Denies orthostatic changes, dizziness, cough, shortness of breath, swelling in extremities. Has decreased alcohol intake to 1 can of beer and 3-4 shots of whiskey 2-3 times per week. (Was 7 days per week before) Today increased metoprolol to 50mg Initiated Hydralazine 25mg BID. Renal Artery Ultrasound ordered today. Advised pt to continue checking BP twice per day and record results in log. Bring back to next visit. Other Visit Diagnoses Resistant hypertension (CMS/HCC) - Primary Relevant Medications hydrALAZINE (Apresoline) 25 MG tablet metoprolol succinate XL (Toprol-XL) 50 MG 24 hr tablet Other Relevant Orders Vascular US renal artery duplex complete Essential (primary) hypertension (CMS/HCC) Relevant Orders Vascular US renal artery duplex complete documented in this encounter [facility] Instructions 03-18-2024 Patient Instructions Note Date & Type Note Facility 03-18-2024 Instructions Nisha Wilkes NP - 03/18/2024 2:00 PM EDT Start taking Hydralzine 25mg TWICE daily CHANGE how you take metoprolol; You will now take 50mg once daily. Your blood pressure is TOO HIGH in the office today. Check your blood pressure at home twice per day, once in the morning and once in the evening. Goal <130/90. Record results in blood pressure log. Bring back with you to your next visit. Chest pain, shortness of breath, numbness/tingling in extremities, dizziness, slurred speech, or vision changes GO TO ER IMMEDIATELY!!!! documented in this encounter [facility] Progress note 02-23-2024 Note Date & Type Note Facility 02-23-2024 Note [facility] Note Reason for cardiology consult: Hypertension Chief Complaint: high blood pressure, occasional edema HPI: Yocasta Rapp is a 63 y.o. male without prior cardiac history, he has history of hypertension, hypertension lipidemia. No prior cardiac history. No history of diabetes mellitus. He was in [facility] in October 2023 with double vision, headache [...] to 150s to 160s. He works at [employer] and he is active at his job [...] to amlodipine but (more content not included)... [facility] Evaluation note Note Date & Type Note Facility Evaluation note Diagnosis Resistant hypertension (CMS/HCC)- Primary Essential (primary) hypertension (CMS/HCC) Unspecified essential hypertension Primary hypertension (CMS/HCC) Unspecified essential hypertension documented in this encounter [facility] Evaluation note Note Date & Type Note Facility Evaluation note Diagnosis Primary hypertension (CMS/HCC)- Primary Unspecified essential hypertension Primary hypertension (CMS/HCC)- Primary Unspecified essential hypertension Encounter for wellness examination in adult Carotid stenosis, bilateral Occlusion and stenosis of carotid artery without mention of cerebral infarction Hyperlipidemia, unspecified hyperlipidemia type (CMS/HCC) Resistant hypertension (CMS/HCC)- Primary Essential (primary) hypertension (CMS/HCC) Unspecified essential hypertension Primary hypertension (CMS/HCC) Unspecified essential hypertension Primary hypertension (CMS/HCC)- Primary Unspecified essential hypertension Resistant hypertension (CMS/HCC) documented in this encounter [facility] Summary Purpose Family History No Family History Records FoundNo Family History Records Found Advance Directives No Advanced Directives Records FoundNo Advanced Directives Records Found Additional Source Comments (unrecognized sect ion and content) No Status Records FoundNo Status Records Found INFORMATION SOURCE (unrecogn ized section and content) DATE CREATED AUTHOR 03/21/2024 [facility] DATE CREATED AUTHOR AUTHOR'S ORGANIZ ATION 04/24/2024 [facility] Care Teams (unrecognized sec tion and content) Mechanical Spreader Operator Relationship Specialty Start Date End Date Jori Colindres MD [address] [place] [id number] PCP - General Family Medicine 01/27/24 Nisha Wilkes NP [address] [place] [address] Nurse Practitioner Family Medicine 01/27/24 Mechanical Spreader Operator Relationship Specialty Start Date End Date Jori Colindres MD [address] [place] [phone] PCP - General Family Medicine 01/27/24 Nisha Wilkes NP [address] [place] [address] Nurse Practitioner Family Medicine 01/27/24 Mechanical Spreader Operator Relationship Specialty Start Date End Date Jori Colindres MD [address] [place] [phone] PCP - General Family Medicine 01/27/24 Nisha Wilkes NP [address] [place] [address] Nurse Practitioner Family Medicine 01/27/24 Mechanical Spreader Operator Relationship Specialty Start Date End Date Jori Colindres MD [address] [place] [phone] PCP - General Family Medicine 01/27/24 Nisha Wilkes NP [address] [place] [address] Nurse Practitioner Family Medicine 01/27/24 Reason for Visit (unrecogniz ed section and content) Reason Comments Hypertension Med Refill FOR RECORDS PERTAINING TO PATIENTS WHO ARE [...] BE BASED ON THE PRIMARY CLINICAL RECORDS. [employer] provides no warranty or guarantee of the accuracy or completeness of information in this document.
[2024-05-01 08:58] LABS: Anion Gap 13.5; BUN Creatinine Ratio 18.9; Calcium 8.8 mg/dL (8.5-10.1); Carbon Dioxide 25.9 mmol/L (21.0-32.0); Chloride 107 mmol/L (98-107); Estimated GFR (African America >60 (>=60 mL/min/1.73m^2); Estimated GFR (Non-African Ame >60 (>=60 mL/min/1.73m^2); Glucose 102 mg/dL (74-106); Potassium 4.4 mmol/L (3.5-5.1); Sodium 142 mmol/L (136-145)
== END 2024-05-01 08:14 | disposition home or self-care (01) ==
PROVIDERS: Family Provider Internal Medicine; Visit Provider Internal Medicine Cardiovascular Disease
DX: I11.9 Hypertensive heart disease without heart failure (principal)
CPT/HCPCS: 36415; 80048

== ENCOUNTER 2024-05-20 14:46 | Outpatient (OUT) | payer OTHER, SELFPAY ==
--- OUTSIDE RECORDS SUMMARY | 2024-05-20 15:10 | XMS_ITS | CCD ---
Author Organization [place] In[facility] ion [facility] Care Team Providers Care Glost Tile Shader Name Role Phone Jori Colindres MD Primary Care Provider Nisha Farfan NP CÉSAR GARVES Attending Unavailable NISHA FARFAN Attending NISHA Allan Attending NISHA Allan Attending NISHA Allan Attending EFRAIN Isaac Attending EFRAIN Jiménez Attending Unavailable Medications Current Medications Medication Drug Class(es) Dates Sig (Normalized) Sig (Original) amLODIPine 10 mg oral tablet (7 sources) Dihydropyridine Calcium Channel Gabriella Start: 02-17-2024 take 1 tablet by mouth once daily amLODIPine (Norvasc) 10 MG tablet Indications: Primary hypertension (CMS/HCC) Take 1 tablet (10 mg) by mouth Daily 30 tablet 02/17/2024 Active atorvastatin 20 mg oral tablet (6 sources) HMG-CoA Reductase Inhibitor Start: 02-23-2024 take 1 tablet by mouth once daily atorvastatin (Lipitor) 20 MG tablet Take 20 mg by mouth Daily 02/23/2024 Active hydrALAZINE hydrochloride 25 mg oral tablet (8 sources) Arteriolar Vasodilator Start: 04-22-2024 End: 04-22-2025 [...] / losartan potassium 100 mg oral tablet (7 sources) Thiazide Diuretic, Angiotensin 2 Receptor Gabriella Start: 02-17-2024 take 1 tablet by mouth once daily losartan-hydroCHLOROthiazide (Hyzaar) 100-25 MG tablet Indications: Primary hypertension (CMS/HCC) Take 1 tablet by mouth Daily 30 tablet 02/17/2024 Active 24 hr metoprolol succinate 50 mg extended release oral tablet (9 sources) beta-Adrenerg ic Gabriella Start: 03-18-2024 End: [...] Da te Episodic/Chronic Disorders of lipid metabolism (9 sources) Hyperlipidemia; Translations: [Hyperlipidemia, unspecified] Onset: 10-27-2023 10-27-2023 Chronic Essential hypertension (19 sources) Essential hypertension; Translations: [Essential (primary) hypertension] Onset: 10-27-2023 10-27-2023 Chronic Heart valve disorders (7 sources) Aortic valve calcification; Translations: [Nonrheumatic aortic valve disorder, unspecified] Onset: 10-28-2023 10-28-2023 Chronic Occlusion or stenosis of precerebral arteries (7 sources) Bilateral stenosis of carotid arteries; Translations: [Occlusion and stenosis of bilateral carotid arteries] Onset: 10-27-2023 10-27-2023 Chronic Other and ill-defined heart disease (7 sources) Left ventricular hypertrophy; Translations: [Cardiomegaly] Onset: 10-28-2023 10-28-2023 Chronic Residual codes; unclassified (2 sources) Localized edema; Translations: [Localized edema] Onset: 02-23-2024 Episodic Past or Other Problems Problem Classification Problem Date Documented Da te Episodic/Chronic Heart valve disorders (7 sources) Systolic murmur; Translations: [Cardiac murmur, unspecified] Onset: 10-27-2023 10-27-2023 Episodic Other ear and sense organ disorders (7 sources) Bilateral tinnitus; Translations: [Tinnitus, bilateral] Onset: 10-27-2023 10-27-2023 Episodic Results Test Name Value Interpretation Reference Range Facil ity Office Visiton 05-03-2024 Follow-up visit [id number] Yocasta Kruger 1960 M Date Provider Department Center 05/03/2024 [id number] DAMIAN GIOVANNA [place] Family History Problem Relation Age of Onset No Known Problems Mother No Known Problems Father Family Status - Relation Status Age at Mother Father Level of Service:34397 IN OFFICE/OUTPATIENT ESTABLISHED MOD MDM 30 MIN Reason for Visit and Comments: Hypertension [741217] - Pt is here for a two month follow up after a echo. Normal [facility] ALL BASIC METABOLIC PANELon 05-01-2024 Anion gap [Moles/Vol] 13.5 mmol/L [facility] Healthcare Calcium [Mass/Vol] 8.8 mg/dL 8.5 - 10.1 mg/dL [facility] Healthcare Chloride [Moles/Vol] 107 mmol/L 98 - 107 mmol/L [facility] Healthcare CO2 [Moles/Vol] 25.9 mmol/L 21.0 - 32.0 mmol/L [facility] Healthcare Creatinine [Mass/Vol] 0.9 mg/dL 0.70 - 1.30 mg/dL [facility] GFR/1.73 sq M.predicted CKD-EPI (S/P/Bld) [Vol rate/Area] >60 >=60 mL/min/1.73m 2 [facility] Glucose [Mass/Vol] 102 mg/dL 74 - 106 mg/dL [facility] Healthcare Potassium [Moles/Vol] 4.4 mmol/L 3.5 - 5.1 mmol/L [facility] Sodium [Moles/Vol] 142 mmol/L 136 - 145 mmol/L [facility] TBH EGFR-NON AF [place] >60 >=60 mL/min/1.73m 2 [facility] Urea nitrogen [Mass/Vol] 17 mg/dL 7.0 - 18.0 mg/dL [facility] Urea nitrogen/Creatinin e [Mass ratio] 18.9 mg/mg [facility] Healthcar e 36on 03-19-2024 36 Regarding echo and labs: [...] new med. He verbalized understanding. Orders sent. [facility] Office Visiton 02-23-2024 Follow-up visit [id number] Yocasta Kruger 1960 M Date Provider Department Center 02/23/2024 [id number] CHAPA GIOVANNA B[facility] Family History Problem Relation Age of Onset No Known Problems Mother No Known Problems Father Family Status - Relation Status Age at Mother Father Level of Service:36609 IN OFFICE/OUTPATIENT NEW MODERATE MDM 45 MINUTES Reason for Visit and Comments: New Patient [632] Hypertension [522233] - Pt is here per Nisha Farfan [facility] Vital Signs Date Time Vital Sign Value Performing Clinician Mara knight 04-22-2024 15:27-0500 Body height 175.3 cm Nisha Farfan DIPPER OPERATOR Work Phone: [facility] 04-22-2024 15:27-0500 Body mass index (BMI) [Ratio] 30.13 kg/m2 Nisha Farfan DIPPER OPERATOR Work Phone: [facility] 04-22-2024 15:27-0500 Body temperature 96.91 [degF] Nisha Farfan DIPPER OPERATOR Work Phone: [facility] 04-22-2024 15:27-0500 Body weight 92.53 kg Nisha Farfan DIPPER OPERATOR Work Phone: [facility] 04-22-2024 15:27-0500 Diastolic blood pressure 82 mm[Hg] Nisha Farfan DIPPER OPERATOR Work Phone: [facility] 04-22-2024 15:27-0500 Heart rate 66 /min Nisha Farfan DIPPER OPERATOR Work Phone: [facility] 04-22-2024 15:27-0500 Respiratory rate 16 /min Nisha Farfan DIPPER OPERATOR Work Phone: [facility] 04-22-2024 15:27-0500 SaO2% (BldA) [Mass fraction] 96 % Nisha Afrfan DIPPER OPERATOR Work Phone: [facility] 04-22-2024 15:27-0500 Systolic blood pressure 200 mm[Hg] Nisha Farfan DIPPER OPERATOR Work Phone: [facility] 03-18-2024 13:52-0400 Body height 172.7 cm Nisha Farfan DIPPER OPERATOR Work Phone: [facility] 03-18-2024 13:52-0400 Body mass index (BMI) [Ratio] 31.63 kg/m2 Nisha Farfan DIPPER OPERATOR Work Phone: [facility] 03-18-2024 13:52-0400 Body temperature 96.4 [degF] Nisha Farfan DIPPER OPERATOR Work Phone: [facility] 03-18-2024 13:52-0400 Body weight 94.35 kg Nisha Farfan DIPPER OPERATOR Work Phone: [facility] 03-18-2024 13:52-0400 Diastolic blood pressure 92 mm[Hg] Nisha Farfan DIPPER OPERATOR Work Phone: [facility] 03-18-2024 13:52-0400 Heart rate 63 /min Nisha Farfan DIPPER OPERATOR Work Phone: [facility] 03-18-2024 13:52-0400 Respiratory rate 16 /min Nisha Armandopatrick DIPPER OPERATOR Work Phone: [facility] 03-18-2024 13:52-0400 SaO2% (BldA) [Mass fraction] 98 % Nisha Hsuzpatrick DIPPER OPERATOR Work Phone: [facility] 03-18-2024 13:52-0400 Systolic blood pressure 190 mm[Hg] Nisha Farfan DIPPER OPERATOR Work Phone: [facility] Healthcare Encounters Encounter Date Encounter Type Care Provider Facility Start: 05-03-2024 ambulatory [facility] Start: 05-01-2024 End: 05-01-2024 [facility] Result Encounter Generic External Data Provider [facility] External Department Unsolicited Start: 05-01-2024 End: 05-01-2024 [facility] Result Encounter Generic External Data Provider [facility] External Department Unsolicited Start: 04-22-2024 End: 04-22-2024 Office outpatient visit 15 minutes Nisha Armandopatrick DIPPER OPERATOR Work Phone: [facility] Comment on above: Primary hypertension (CMS/HCC) (Primary Dx); Resistant hypertension (CMS/HCC) Start: 04-22-2024 End: 04-22-2024 ambulatory NISHA FARFAN Not Available Start: 04-22-2024 End: 04-22-2024 Bamboo flowsheet Nisha Farfan DIPPER OPERATOR Work Phone: [facility] Start: 04-22-2024 End: 04-22-2024 Bamboo flowsheet Nisha Farfan DIPPER OPERATOR Work Phone: [facility] Start: 03-18-2024 End: 03-18-2024 Bamboo flowsheet Nisha Goldentrick DIPPER OPERATOR Work Phone: [facility] Start: 03-18-2024 End: 03-18-2024 Bamboo flowsheet Nisha Farfan DIPPER OPERATOR Work Phone: [facility] Start: 03-18-2024 End: 03-18-2024 Office outpatient visit 15 minutes Nisha Farfan DIPPER OPERATOR Work Phone: [facility] Comment on above: Resistant hypertensi on (CMS/HCC) (Primary Dx); Essential (primary) hypertension (CMS/HCC); Primary hypertension (CMS/HCC) Start: 03-18-2024 End: 03-18-2024 ambulatory NISHA GOLDENTRICK Not Available Start: 02-23-2024 End: 02-23-2024 ambulatory [facility] Start: 02-17-2024 End: 02-17-2024 ambulatory NISHA GOLDENTRICK Not Available Start: 02-04-2024 End: 02-04-2024 ambulatory NISHA FARFAN Not Available Start: 02-04-2024 Patient encounter status Nisha Farfan DIPPER OPERATOR Work Phone: [facility] Start: 10-27-2023 End: 10-27-2023 ambulatory CÉSAR GRAVES Not Available Procedures Date Procedure Procedure Detail Performing Clinician Start: 05-01-2024 ALL BASIC METABOLIC PANEL Generic External Data Provider Plan of Treatment Date Care Activity Detail Author Start: 04-22-2025 Screening for malign ant neoplasm of colon Colorectal Cancer Screening [facility] Comment on above: Postponed from 05/10 (Patient Refused) Start: 06-21-2024 End: 06-21-2024 Patient encounter procedure 06/21/2024 3:00 PM EST Office Visit [facility] [address] [place] [address] Nisha Farfan NP [address] [place] [id number] [facility] Start: 04-22-2024 End: 04-22-2024 [facility] Comment on above: Arrived Start: 03-18-2024 End: 03-18-2024 Patient encounter procedure 03/18/2024 2:00 PM EDT Office Visit [facility] [address] [place] [address] Nisha Farfan NP [address] [place] [address] Arrived [facility] Comment on above: Arrived Start: 03-18-2024 End: 03-18-2025 US.doppler Renal artery Vascular US renal artery duplex complete Imaging Routine Resistant hypertension (CMS/HCC) Essential (primary) hypertension (CMS/HCC) Expected: 03/18/2024, Expires: 03/18/2025 [facility] Work Phone: Comment on above: Expected: 03/18/2024 , Expires: 03/18/2025 Start: 02-15-2024 Influenza vaccination Influenza Vacc ine (#1) [facility] Start: 1960 Screening for malign ant neoplasm of colon [facility] Payers Date Payer Category Payer Private Health Insurance [employer] [id number] 2022 Unknown [employer] [id number] 2022-Present [address] [place] [address] [id number] 2022 Unknown [id number] 1960 Unknown [id number] [id number] 1960 Unknown [id number] [id number] 1960 Unknown [id number] [id number] 1960 Unknown [id number] [id number] 1960 Unknown [id number] [id number] Social History Date Type Detail Facility Start: 02-04-2024 Tobacco smoking stat [facility] Never smoked tobacco [facility] Start: 02-04-2024 Tobacco use and exposure Smoke less tobacco non-user [facility] Start: 02-17-2024 End: 04-22-2024 Alcoholic beverage intake Current drinker of alcohol (finding) [facility] Start: 10-27-2023 End: 02-17-2024 Alcoholic beverage intake [facility] Start: 10-27-2023 End: 02-17-2024 Social connection and isolation panel [facility] Do you belong to any clubs or organizations such as christian groups, unions, fraternal or athletic groups, or [...] Not at all [facility] (I/We) worried wheth er (my/our) food would run out before (I/we) got money to buy more. Never true [facility] Start: 1960 Sex assigned at Not on file [facility] NEGATED: Highlighted rowStart: NINF History of tobacco use Passive smoker [facility] Progress note 05-03-2024 Note Date & Type Note Facility 05-03-2024 Note [facility] Note Reason for cardiology visit: F/U Hypertension HPI: 05/03/2024 Patient is here today for follow-up visit. His blood pressure still elevated. The patient reports that he takes his medications regularly. He denies recurrence of headache or double vision. He denies any chest pain or shortness of breath at rest or with exertion. Denies orthopnea or paroxysmal nocturnal dyspnea or dizziness or palpitations or legs edema Repeat blood pressure at the end of the visit was down to 174/96 from 227/92 at the beginning of visit 02/23/2024 Chief Complaint: high blood pressure, occasional edema Yocasta Kruger is a 63 y.o. male without prior [...] to 150s to 160s. 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 His father had hypertension Review of systems All systems were reviewed and they were negative except for the positive findings noted above in the history Past Medical History He has a past [...] mouth in the morning., Disp: , Rfl: atorvastatin (Lipitor) 20 mg tablet, Take 1 tablet (20 mg) by mouth in the morning., Disp: 30 tablet, Rfl: 11 losartan-hydrochlorothiazide (Hyzaar) 100-25 mg tablet, Take 1 tablet by mouth in the morning., Disp: , Rfl: metoprolol succinate XL (Toprol-XL) 50 mg 24 hr tablet, Take 1 tablet (50 mg) by mouth in the morning., Disp: 30 tablet, Rfl: 11 spironolactone (Aldactone) 50 mg tablet, Take 1 tablet (50 mg) by mouth in the morning., Disp: 90 tablet, Rfl: 3 Last Recorded Vitals Visit Vitals BP (!) 213/95 (BP Location: Left arm, Patient Position: Sitting) Pulse 67 Ht 1.727 m (5' 8 ) Wt 92.5 kg (204 lb) SpO2 97% BMI 31.02 kg/m??? Smoking Status Never BSA 2.11 m??? Physical Examination: GENERAL: alert and oriented [...] PSYCH: appropriate mood, affect, and judgement. Labs: 04/30/2024 Sodium 142, potassium 4.4, BUN 17, creatinine 0.9, GFR above 60, calcium 8.8 02/21/2024 White blood count 6.5, hemoglobin 15, hematocrit 44.3, platelets 209 Sodium 137, potassium 3.7, BUN 26, creatinine 0.81, GFR above 60, glucose 109, HbA1c 5.1% Calcium 8.8 Total bilirubin 0.8, AST 15, ALT 22, alk phos 47, total protein 7.1, albumin 3.6 Triglyceride 88, cholesterol 222, LDL 132, HDL 73 TSH 1.761 Labs from 02/04/2024 White blood count 7.6, [...] showed sinus rhythm and nonspecific ST change Echo 03/03/2024 Echo 10/23/2023 Chest x-ray 02/04/2024 Impression (more content not included)... [facility] History of Present illness Narrative 04-22-2024 Nisha Farfan NP - 04/22/2024 4:02 PM Tammy Farfan, BONNIE - 04/22/2024 3:30 PM Tammy Farfan NP - 04/22/2024 3:30 PM EST Note Date [...] were not included. Subjective Patient ID: Yocasta Kruger is a 63 y.o. male who presents for No chief complaint on file.. HPI Review of Systems Objective Physical Exam Assessment/Plan Images from the original note were not included. Subjective Patient ID: Yocasta Kruger is a 63 y.o. male who presents [...] This Visit Primary hypertension (CMS/HCC) (Chronic) Pt was seen one month ago [...] 25 MG tablet documented in this encounter [facility] Healthcare Instructions 04-22-2024 Patient Instructions Note Date & Type Note Facility 04-22-2024 Instructions Nisha Farfan NP - 04/22/2024 3:30 PM EST Your [...] TO ER IMMEDIATELY!!!! documented in this encounter [facility] History of Present illness Narrative 03-18-2024 Nisha Farfan NP - 03/18/2024 3:04 PM EDTBdimitri Farfan NP - 03/18/2024 2:00 PM EDT Note [...] were not included. Subjective Patient ID: Yocasta Kruger is a 63 y.o. male who presents [...] artery duplex complete documented in this encounter [facility] Instructions 03-18-2024 Patient Instructions Note Date & Type Note Facility 03-18-2024 Instructions Nisha Farfan NP - 03/18/2024 2:00 PM EDT Start [...] TO ER IMMEDIATELY!!!! documented in this encounter [facility] [employer] Progress note 02-23-2024 Note Date & Type Note Facility 02-23-2024 Note [facility] Note Reason for cardiology consult: Hypertension Chief Complaint: high blood pressure, occasional edema HPI: Yocasta Kruger is a 63 y.o. male without prior cardiac history, he has history of hypertension, hypertension lipidemia. No prior cardiac history. No history of diabetes mellitus. He was in [facility] in October 2023 with double vision, headache [...] to 150s to 160s. 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 [facility] Evaluation note Note Date & Type Note Facility Evaluation note Diagnosis Resistant hypertension (CMS/HCC)- Primary Essential (primary) hypertension (CMS/HCC) Unspecified essential hypertension Primary hypertension (CMS/HCC) Unspecified essential hypertension documented in this encounter [facility] Evaluation note Note Date & Type [...] Resistant hypertension (CMS/HCC) documented in this encounter [facility] Healthcare Summary Purpose Family History No Family History Records FoundNo Family History Records Found Advance Directives No Advanced Directives Records FoundNo Advanced Directives Records Found Additional Source Comments Care Teams (unrecognized sec tion and content) Glost Tile Shader Relationship Specialty Start Date End Date Jori Colindres MD [address] [place] [address] PCP - General Family Medicine 01/27/24 Nisha Farfan NP [address] [place] [address] Nurse Practitioner Family Medicine 01/27/24 Glost Tile Shader Relationship Specialty Start Date End Date Jori Colindres MD [address] [place] [address] PCP - General Family Medicine 01/27/24 Nisha Farfan NP [address] [place] [address] Nurse Practitioner Family Medicine 01/27/24 Glost Tile Shader Relationship Specialty Start Date End Date Jori Colindres MD [address] [place] [phone] PCP - General Family Medicine 01/27/24 Nisha Farfan NP [address] [place] [address] Nurse Practitioner Family Medicine 01/27/24 Glost Tile Shader Relationship Specialty Start Date End Date Jori Colindres MD [address] [place] [phone] PCP - General Family Medicine 01/27/24 Nisha Farfan NP [address] [place] [address] Nurse Practitioner Family Medicine 01/27/24 Glost Tile Shader Relationship Specialty Start Date End Date Jori Colindres MD [address] [place] [phone] PCP - General Family Medicine 01/27/24 Nisha Farfan NP [address] [place] [address] Nurse Practitioner Family Medicine 01/27/24 Reason for Visit (unrecogniz ed section and content) Reason Comments Hypertension Med Refill (unrecognized sect ion and content) No Status Records FoundNo Status Records Found INFORMATION SOURCE (unrecogn ized section and content) DATE CREATED AUTHOR 04/24/2024 [facility] DATE CREATED AUTHOR AUTHOR'Stanislav WINTER 05/17/2024 [facility] FOR RECORDS PERTAINING TO PATIENTS WHO ARE [...] BE BASED ON THE PRIMARY CLINICAL RECORDS. [employer] provides no warranty or guarantee of the accuracy or completeness of information in this document.
[2024-05-20 15:41] LABS: Alanine Aminotransferase 25 U/L (16-63); Albumin Level 3.7 g/dL (3.4-5.0); Alkaline Phosphatase 44 U/L (46-116); Aspartate Amino Transferase 17 U/L (15-37); Bilirubin Direct 0.3 mg/dL (0.0-0.2); Bilirubin Total 1.3 mg/dL (0.2-1.0); Chol HDL Ratio 1.9; Cholesterol 167 mg/dL (<=200); Globulin 3.6 g/dL; HDL Cholesterol 88 mg/dL (40-60); Total Protein 7.3 g/dL (6.4-8.2); Triglycerides 51 mg/dL (<=150); VLDL CHOLESTEROL 10.2 mg/dL
== END 2024-05-20 14:47 | disposition home or self-care (01) ==
LOC: LAB 14:48
PROVIDERS: Family Provider Internal Medicine; Visit Provider Internal Medicine Cardiovascular Disease
DX: E78.5 Hyperlipidemia, unspecified (principal)
CPT/HCPCS: 36415; 80061; 80076

== ENCOUNTER 2024-10-07 08:10 | Outpatient (OUT) | payer MEDICARE, SELFPAY ==
[2024-10-07 08:44] LABS: Bilirubin Urine NEGATIVE (NEGATIVE); Blood Urine NEGATIVE (NEGATIVE); Clarity Urine CLEAR (CLEAR); Color Urine LT. YELLOW (YELLOW); Glucose Urine UA NEGATIVE (NEGATIVE); Ketones Urine NEGATIVE (NEGATIVE); Leukocyte Esterase Urine NEGATIVE (NEGATIVE); Nitrite Urine NEGATIVE (NEGATIVE); Protein Urine NEGATIVE (NEG/TRACE); Specific Gravity Urine <=1.005 (1.005-1.025); Urobilinogen Urine 0.2 EU/dL (0.2-1.0); pH Urine 6.5 (5.0-9.0)
[2024-10-07 08:46] LABS: Urine Microscopic Indicated NO
[2024-10-07 09:06] LABS: Anion Gap 9.7; BUN Creatinine Ratio 17.6; Calcium 8.8 mg/dL (8.5-10.1); Carbon Dioxide 29.1 mmol/L (21.0-32.0); Chloride 104 mmol/L (98-107); Estimated GFR (African America >60 (>=60 mL/min/1.73m^2); Estimated GFR (Non-African Ame >60 (>=60 mL/min/1.73m^2); Glucose 126 mg/dL (74-106); Potassium 3.8 mmol/L (3.5-5.1); Sodium 139 mmol/L (136-145)
[2024-10-07 09:10] LABS: Creatinine Urine Random 53.86 mg/dL (20.00-300.00); Microalbumin Urine Random <1.3 mg/dL (<=30.0)
[2024-10-07 09:28] LABS: Prostate Specific Antigen Scrn 1.31 ng/mL (<=4.00)
== END 2024-10-07 08:11 | disposition home or self-care (01) ==
PROVIDERS: Family Provider Internal Medicine; PCP Nurse Practitioner; Visit Provider Nurse Practitioner
DX: Z12.5 Encounter for screening for malignant neoplasm of prostate (principal); I10 Essential (primary) hypertension
CPT/HCPCS: 36415; 80048; 81003; 82043; 82570; G0103

== ENCOUNTER 2024-10-19 12:25 | Outpatient (OUT) | payer MEDICARE, SELFPAY ==
[2024-10-19 13:13] LABS: Estimated Average Glucose 114 mg/dL; Glycohemoglobin A1C 5.6 % (4.5-6.2)
== END 2024-10-19 12:26 | disposition home or self-care (01) ==
LOC: LAB 12:28
PROVIDERS: Family Provider Internal Medicine; PCP Nurse Practitioner; Visit Provider Nurse Practitioner
DX: R73.09 Other abnormal glucose (principal)
CPT/HCPCS: 36415; 83036

== ENCOUNTER 2024-12-08 08:56 | Outpatient (OUT) | payer MEDICARE, SELFPAY ==
--- OUTSIDE RECORDS SUMMARY | 2024-12-08 09:19 | XMS_ITS | CCD ---
Author Organization [facility] Care Team Providers Care Caddy Packer Name Role Phone Jori Colindres MD Primary Care Provider Farfan FINISHING DEPARTMENT SUPERVISOR, Nisha Unavailable [phone] Unavailable Primary Care Provider Unavailabl e Farfan FINISHING DEPARTMENT SUPERVISOR, Nisha Unavailable CÉSAR GRAVES Attending Unavailable FARFAN, NISHA Attending Unavailabl e FARFAN, NISHA Attending Unavailabl e FARFAN, NISHA Attending Unavailabl e FARFAN, NISHA Attending Unavailabl e FARFAN, NISHA Attending Unavailabl e RADHA RAMIRES Attending Unavailable EFRAIN NATION Attending Unavailable EFRAIN NATION Attending Unavailable EFRAIN NATION Attending Unavailable EFRAIN NATION Attending Unavailable Medications Current Medications Medication Drug Class(es) Dates Sig (Normalized) Sig (Original) amLODIPine 10 mg oral tablet (20 sources) Dihydropyridine Calcium Channel Gabriella Start: 10-25-2023 End: 06-28-2024 take 1 tablet by mouth once daily amLODIPine (Norvasc) 10 MG tablet Indications: Primary hypertension (CMS/HCC) Take 1 tablet (10 mg) by mouth Daily 30 tablet 02/17/2024 Active atorvastatin 20 mg oral tablet (17 sources) HMG-CoA Reductase Inhibitor Start: 02-23-2024 take 1 tablet by mouth once daily atorvastatin (Lipitor) 20 MG tablet Take 20 mg by mouth Daily 02/23/2024 Active carvedilol 25 mg oral tablet (8 sources) alpha-Adrenergic Gabriella, beta-Adrenergic Gabriella take 1 tablet by mouth at breakfast carvedilol (Coreg) 25 MG tablet TAKE 1 TABLET BY MOUTH WITH BREAKFAST AND TAKE 1 TABLET WITH EVENING MEAL Active hydrALAZINE hydrochloride 25 mg oral tablet (18 sources) Arteriolar Vasodilator Start: 04-22-2024 End: 04-22-2025 take 2 tablets by mouth in the morning hydrALAZINE (Apresoline) 25 MG tablet Indications: Resistant hypertension (CMS/HCC) Take 2 tablets (50 mg) by mouth in the morning and 2 tablets (50 mg) before bedtime. 120 tablet 11 04/22/2024 06/28/2024 Discontinued (Discontinued by another clinician) Start: 03-18-2024 End: 03-18-2025 take 1 tablet by mouth in the morning hydrALAZINE (Apresoline) 25 MG tablet Indications: Resistant hypertension (CMS/HCC) Take 1 tablet (25 mg) by mouth in the morning and 1 tablet (25 mg) before bedtime. 60 tablet 11 03/18/2024 04/22/2024 Discontinued (Dose adjustment) hydroCHLOROthiazide 25 mg / losartan potassium 100 mg oral tablet (20 sources) Thiazide Diuretic, Angiotensin 2 Receptor Gabriella Start: 01-06-2024 End: 09-27-2024 take 1 tablet by mouth once daily losartan-hydroCHLOROthiazide (Hyzaar) 100-25 MG tablet Indications: Primary hypertension (CMS/HCC) Take 1 tablet by mouth Daily 30 tablet 02/17/2024 09/27/2024 Discontinued (Therapy completed) Start: 10-25-2023 losartan-hydro CHLOROthiazide (HYZAAR) 100-25 mg per tablet 1 tablet. 10/25/2023 Active 24 hr metoprolol succinate 50 mg extended release oral tablet (20 sources) beta-Adrenergic Gabriella Start: 03-18-2024 End: 03-18-2025 take 1 tablet by mouth once daily metoprolol succinate XL (Toprol-XL) 50 MG 24 hr tablet Take 50 mg by mouth Daily 09/07/2024 09/27/2024 Discontinued (Therapy completed) Start: 02-17-2024 End: 02-16-2025 take 1 tablet by mouth once daily metoprolol succinate XL (Toprol-XL) 25 MG 24 hr tablet Indications: Primary hypertension (CMS/HCC) , Carotid stenosis, bilateral Take 1 tablet (25 mg) by mouth Daily Do not crush or chew. 30 tablet 2 02/17/2024 03/18/2024 Discontinued (Dose adjustment) Start: 02-17-2024 End: 02-16-2025 take 1 tablet by mouth every twenty-four hours in the morning metoprolol succinate XL (TOPROL XL) 25 mg 24 hr tablet Take 1 tablet (25 mg total) by mouth in the morning. 02/17/2024 02/16/2025 Active 24 hr NIFEdipine 90 mg extended release oral tablet (8 sources) Dihydropyridine Calcium Channel Gabriella Start: 06-05-2024 take 1 tablet by mouth once daily in the morning NIFEdipine CC (Adalat CC) 90 MG 24 hr tablet TAKE 1 TABLET BY MOUTH ONCE DAILY IN THE MORNING DO NOT CRUSH, CHEW OR SPLIT 06/05/2024 Active spironolactone 50 mg oral tablet (5 sources) Aldosterone Antagonist Start: 04-18-2024 End: 09-27-2024 take 1 tablet by mouth in the morning spironolactone (Aldactone) 50 MG tablet Take 50 mg by mouth in the morning. 04/18/2024 09/27/2024 Discontinued (Therapy completed) Problems Active Problems Problem Classification Problem Date Documented Da te Episodic/Chronic Diabetes mellitus without complication (3 sources) Increased glucose level; Translations: [Other abnormal glucose] Onset: 10-08-2024 10-08-2024 Episodic Disorders of lipid metabolism (20 sources) Hyperlipidemia; Translations: [Hyperlipidemia, unspecified] Onset: 10-27-2023 10-27-2023 Chronic Essential hypertension (20 sources) Essential hypertension; Translations: [Essential (primary) hypertension] Onset: 10-27-2023 10-27-2023 Chronic Heart valve disorders (20 sources) Aortic valve calcification; Translations: [Nonrheumatic aortic valve disorder, unspecified] Onset: 10-28-2023 10-28-2023 Chronic Occlusion or stenosis of precerebral arteries (20 sources) Bilateral stenosis of carotid arteries; Translations: [Occlusion and stenosis of bilateral carotid arteries] Onset: 10-27-2023 10-27-2023 Chronic Other and ill-defined heart disease (20 sources) Left ventricular hypertrophy; Translations: [Cardiomegaly] Onset: 10-28-2023 10-28-2023 Chronic Other screening for suspected conditions (not mental disorders or infectious disease) (8 sources) Patient encounter status; Translations: [Encounter for screening for malignant neoplasm of prostate] Onset: 09-27-2024 09-27-2024 Episodic Rheumatoid arthritis and related disease (1 source) Rheumatoid arthritis; Translations: [Rheumatoid arthritis, unspecified] Onset: 09-27-2024 09-27-2024 Chronic Past or Other Problems Problem Classification Problem Date Documented Da te Episodic/Chronic Heart valve disorders (20 sources) Systolic murmur; Translations: [Cardiac murmur, unspecified] Onset: 10-27-2023 10-27-2023 Episodic Other ear and sense organ disorders (20 sources) Bilateral tinnitus; Translations: [Tinnitus, bilateral] Onset: 10-27-2023 10-27-2023 Episodic Residual codes; unclassified (2 sources) Localized edema; Translations: [Localized edema] Onset: 02-26-2024 Episodic Results Test Name Value Interpretation Reference Range Facil ity MLR HEMOGLOBIN A1Con 025 Glucose [Mass/Vol] 114 mg/dL [facility] HbA1c (Bld) [Mass fraction] 5.6 % 4.5 - 6.2 % [facility] Comment on above: ADA RECOMMENDED LIMI T 4.0 - 6.0 ADA THERAPEUTIC TARGET < 7.0 ACTION SUGGESTED > 7.0 [facility] UA (CLEAN/CATCH) MICROSC OPIC IF INDICATEon 10-07-2024 BILIRUBIN URINE Negative NEGATIVE [facility] BLOOD URINE Negative NEGATIVE [facility] Clarity (U) CLEAR CLEAR [facility] Color (U) LT. YELLOW YELLOW [facility] GLUCOSE URINE UA Negative NEGATIVE mg/dL [facility] Interpretation and review of laboratory results Abnormal [facility] Ketones Ql (U) Negative NEGATIVE mg/dL [facility] Leukocyte esterase Test strip Ql (U) Negative NEGATIVE [facility] NITRITE URINE Negative NEGATIVE [facility] pH (U) 6.5 [pH] 5.0 - 9.0 [facility] PROTEIN URINE Negative NEG/TRACE mg/dL [facility] SPECIFIC GRAVITY URINE <=1.005 Abnormal 1.005 - 1.025 [facility] URINE MICROSCOPIC INDICATED NO [facility] UROBILINOGEN URINE 0.2 EU/dL 0.2 - 1.0 EU/dL [facility] Office Visiton 10-04-2024 Follow-up visit [id number] Kyle Rapp 1960 M Date Provider Department Center 10/04/2024 [id number] DAMIAN GIOVANNA [facility] Family History Problem Relation Age of Onset No Known Problems Mother No Known Problems Father Family Status - Relation Status Age at Mother Father Alive Sister Alive Brother Alive Level of Service:67088 [place] OFFICE/OUTPATIENT ESTABLISHED MOD MDM 30 MIN Reason for Visit and Comments: 3 month follow up [Other] Normal [facility] Orders Onlyon 10-04-2024 Orders Only [id number] Kyle Rapp 1960 M Date Provider Department Center 10/04/2024 NISREEN YOUNG GIOVANNA [facility] Family History Problem Relation Age of Onset No Known Problems Mother No Known Problems Father Family Status - Relation Status Age at Mother Father Alive Sister Alive Brother Alive Normal [facility] 29on 07-06-2024 29 Addended by: EFRAIN NATION on: 07/06/2024 03:00 PM Modules accepted: Orders Normal [facility] Office Visiton 07-06-2024 Follow-up visit [id number] Kyle Rapp 1960 M Date Provider Department Center 07/06/2024 [id number] DAMIAN GIOVANNA [facility] Family History Problem Relation Age of Onset No Known Problems Mother No Known Problems Father Family Status - Relation Status Age at Mother Father Level of Service:12865 [place] OFFICE/OUTPATIENT ESTABLISHED LOW MDM 20 MIN Reason for Visit and Comments: Hypertension [608236] - PCP started him on hydralazine recently. He denies LE edema. Not having chest pain, SOB, or palpitations. Hyperlipidemia [182] - Had labs w/ lipid panel last month. carotid artery stenosis [Other] - No lightheadedness/ Normal [facility] ALL LIPID PROFILE (FASTING)o n 05-20-2024 CHOL HDL RATIO 1.9 [facility] Comment on above: 3.3 - 4.4 LOW RISK 4.4 - 7.1 AVERAGE RISK 7.1 - 11.0 MODERATE RISK >11.0 HIGH RISK Cholesterol [Mass/Vol] 167 mg/dL NINF - 200 mg/dL [facility] Cholesterol in HDL [Mass/Vol] 88 mg/dL High 40 - 60 mg/dL [facility] Comment on above: > or =60 mg/dl - LOW CARDIOVASCULAR RISK <40 mg/dl - HIGH CARDIOVASCULAR RISK Magnesium [Mass/Vol] 69 mg/dL [facility] Comment on above: <100 mg/dl OPTIMAL 100-129 mg/dl NEAR OR ABOVE OPTIMAL 130-159 mg/dl BORDERLINE HIGH 160-189 mg/dl HIGH >190 mg/dl VERY HIGH Magnesium [Mass/Vol] 10.2 mg/dL [facility] Triglyceride [Mass/Vol] 51 mg/dL NINF - 150 mg/dL [facility] Albumin [Mass/Vol] 3.7 g/dL 3.4 - 5.0 g/dL NO [facility] ALBUMIN GLOBULIN RATIO 1 [facility] ALP [Catalytic activity/Vol] 44 U/L Low 46 - 116 U/L [facility] ALT [Catalytic activity/Vol] 25 U/L 16 - 63 U/L [facility] AST [Catalytic activity/Vol] 17 U/L 15 - 37 U/L [facility] Bilirubin [Mass/Vol] 1.3 mg/dL High 0.2 - 1.0 mg/dL [facility] Bilirubin.indirect [Mass/Vol] 0.3 mg/dL High 0.0 - 0.2 mg/dL [facility] Globulin (S) [Mass/Vol] 3.6 g/dL [facility] Protein [Mass/Vol] 7.3 g/dL 6.4 - 8.2 g/dL NO [facility] No Panel Informationon 05-20 Interpretation and review of laboratory results Abnormal [facility] Follow-up visit [id number] Kyle Rapp 1960 M Date Provider Department Center 05/03/2024 [id number] NATION GIOVANNA [facility] Family History Problem Relation Age of Onset No Known Problems Mother No Known Problems Father Family Status - Relation Status Age at Mother Father Level of Service:25296 [place] OFFICE/OUTPATIENT ESTABLISHED MOD MDM 30 MIN Reason for Visit and Comments: Hypertension [224083] - Pt is here for a two month follow up after a echo. Normal [facility] ALL BASIC METABOLIC PANELon 05-01-2024 Anion gap [Moles/Vol] 13.5 mmol/L [facility] Calcium [Mass/Vol] 8.8 mg/dL 8.5 - 10. 1 mg/dL [facility] Chloride [Moles/Vol] 107 mmol/L 98 - 107 mmol/L [facility] CO2 [Moles/Vol] 25.9 mmol/L 21.0 - 32.0 mmol/L [facility] Creatinine [Mass/Vol] 0.9 mg/dL 0.70 - 1.30 mg/dL [facility] GFR/1.73 sq M.predicted CKD-EPI (S/P/Bld) [Vol rate/Area] >60 >=60 mL/min/1.73m 2 [facility] Glucose [Mass/Vol] 102 mg/dL 74 - 106 mg/dL [facility] Potassium [Moles/Vol] 4.4 mmol/L 3.5 - 5.1 mmol/L [facility] Sodium [Moles/Vol] 142 mmol/L 136 - 145 mmol/L [facility] TBH EGFR-NON AF NAURUAN >60 >=60 mL/min/1.73m 2 [facility] Urea nitrogen [Mass/Vol] 17 mg/dL 7.0 - 18.0 mg/dL [facility] Urea nitrogen/Creatinine [Mass ratio] 18.9 mg/mg [facility] 36on 03-19-2024 36 Regarding [...] new med. He verbalized understanding. Orders sent. Normal [facility] Office Visiton 02-23-2024 Follow-up visit [id number] Kyle Rapp 1960 M Date Provider Department Center 02/23/2024 [id number] NATION Family History Problem Relation Age of Onset No Known Problems Mother No Known Problems Father Family Status - Relation Status Age at Mother Father Level of Service:51202 [place] OFFICE/OUTPATIENT NEW MODERATE MDM 45 MINUTES Reason for Visit and Comments: New Patient [632] Hypertension [504362] - Pt is here per Nisha Farfan [facility] ALL CBC WITH AUTO DIFFon BASOPHILS ABSOLUTE AUTO 0.1 [facility] Basophils/100 WBC (Bld) 0.8 % 0.2 - 2.0 % [facility] Eosinophils/100 WBC (Bld) 2.5 % 0.9 - 7.0 % [facility] Erythrocyte distribution width (RBC) [Ratio] 11.7 % 11.0 - 15.0 % [facility] Hematocrit (Bld) [Volume fraction] 44.3 % 42.0 - 54.0 % [facility] Hemoglobin (Bld) [Mass/Vol] 15.3 g/dL 14.0 - 18.0 g/dL [facility] IMMATURE GRANULOCYTES ABS AUTO 0.01 [facility] Immature granulocytes/100 WBC (Bld) 0.2 % 0.0 - 0.5 % [facility] LYMPHOCYTES ABSOLUTE AUTO 2.4 [facility] Lymphocytes/100 WBC (Bld) 37.7 % 20.5 - 60.0 % [facility] MCH (RBC) [Entitic mass] 32.3 pg 25.9 - 34.0 pg [facility] MCHC (RBC) [Mass/Vol] 34.5 g/dL 29.9 - 35.2 g/dL [facility] MCV (RBC) [Entitic vol] 93.7 fL 80.0 - 94.0 fL [facility] MONOCYTES ABSOLUTE AUTO 0.6 [facility] Monocytes/100 WBC (Bld) 9.3 % 1.7 - 12.0 % [facility] NEUTROPHILS ABSOLUTE AUTO 3.2 [facility] Neutrophils/100 WBC (Bld) 49.5 % 43.0 - 75.0 % [facility] Platelet mean volume (Bld) [Entitic vol] 9.6 fL 9.5 - 13.5 fL [facility] EO # 0.2 [facility] PLT 209 [facility] RBC 4.73 [facility] WBC 6.5 [facility] Vital Signs Date Time Vital Sign Value Performing Clinician Facility 09-27-2024 10:00-0400 Diastolic blood pressure 82 mm[Hg] Radha Ramires FINISHING DEPARTMENT SUPERVISOR Work Phone: [facility] 09-27-2024 10:00-0400 Systolic blood pressure 150 mm[Hg] Radha Ramires FINISHING DEPARTMENT SUPERVISOR Work Phone: [facility] 09-27-2024 09:39-0400 Body mass index (BMI) [Ratio] 30.84 kg/m2 Radha Ramires FINISHING DEPARTMENT SUPERVISOR Work Phone: [facility] 09-27-2024 09:39-0400 Body temperature 98.1 [degF] Radha Ramires FINISHING DEPARTMENT SUPERVISOR Work Phone: [facility] 09-27-2024 09:39-0400 Body weight 91.99 kg Radha Ramires FINISHING DEPARTMENT SUPERVISOR Work Phone: [facility] 09-27-2024 09:39-0400 Heart rate 58 /min Radha Ramires FINISHING DEPARTMENT SUPERVISOR Work Phone: [facility] 09-27-2024 09:39-0400 SaO2% (BldA) [Mass fraction] 98 % Radha Ramires FINISHING DEPARTMENT SUPERVISOR Work Phone: [facility] 06-28-2024 08:35-0500 Body height 172.7 cm Nisha Mooneyk FINISHING DEPARTMENT SUPERVISOR Work Phone: [facility] 06-28-2024 08:35-0500 Body mass index (BMI) [Ratio] 30.11 kg/m2 Nisha Hsuzpatrick FINISHING DEPARTMENT SUPERVISOR Work Phone: [facility] 06-28-2024 08:35-0500 Body temperature 97.2 [degF] Nisha Armandopatrick FINISHING DEPARTMENT SUPERVISOR Work Phone: [facility] 06-28-2024 08:35-0500 Body weight 89.81 kg Nisha Armandopatrick FINISHING DEPARTMENT SUPERVISOR Work Phone: [facility] 06-28-2024 08:35-0500 Diastolic blood pressure 70 mm[Hg] Nisha Farfan FINISHING DEPARTMENT SUPERVISOR Work Phone: [facility] 06-28-2024 08:35-0500 Heart rate 62 /min Nisha Farfan FINISHING DEPARTMENT SUPERVISOR Work Phone: [facility] 06-28-2024 08:35-0500 Respiratory rate 16 /min Nisha Farfan FINISHING DEPARTMENT SUPERVISOR Work Phone: [facility] 06-28-2024 08:35-0500 SaO2% (BldA) [Mass fraction] 95 % Nisha Farfan FINISHING DEPARTMENT SUPERVISOR Work Phone: [facility] 06-28-2024 08:35-0500 Systolic blood pressure 142 mm[Hg] Nisha Farfan FINISHING DEPARTMENT SUPERVISOR Work Phone: [facility] 04-22-2024 15:27-0500 Body height 175.3 cm Nisha Farfan FINISHING DEPARTMENT SUPERVISOR Work Phone: [facility] 04-22-2024 15:27-0500 Body mass index (BMI) [Ratio] 30.13 kg/m2 Nisha Farfan FINISHING DEPARTMENT SUPERVISOR Work Phone: [facility] 04-22-2024 15:27-0500 Body temperature 96.91 [degF] Nisha Farfan FINISHING DEPARTMENT SUPERVISOR Work Phone: [facility] 04-22-2024 15:27-0500 Body weight 92.53 kg Nisha Farfan FINISHING DEPARTMENT SUPERVISOR Work Phone: [facility] 04-22-2024 15:27-0500 Diastolic blood pressure 82 mm[Hg] Nisha Farfan FINISHING DEPARTMENT SUPERVISOR Work Phone: [facility] 04-22-2024 15:27-0500 Heart rate 66 /min Nisha Farfan FINISHING DEPARTMENT SUPERVISOR Work Phone: [facility] 04-22-2024 15:27-0500 Respiratory rate 16 /min Nisha Farfan FINISHING DEPARTMENT SUPERVISOR Work Phone: [facility] 04-22-2024 15:27-0500 SaO2% (BldA) [Mass fraction] 96 % Nisha Farfan FINISHING DEPARTMENT SUPERVISOR Work Phone: [facility] 04-22-2024 15:27-0500 Systolic blood pressure 200 mm[Hg] Nisha Farfan FINISHING DEPARTMENT SUPERVISOR Work Phone: [facility] 03-18-2024 13:52-0400 Body height 172.7 cm Nisha Farfan FINISHING DEPARTMENT SUPERVISOR Work Phone: [facility] 03-18-2024 13:52-0400 Body mass index (BMI) [Ratio] 31.63 kg/m2 Nisha Farfan FINISHING DEPARTMENT SUPERVISOR Work Phone: [facility] 03-18-2024 13:52-0400 Body temperature 96.4 [degF] Nisha Farfan FINISHING DEPARTMENT SUPERVISOR Work Phone: [facility] 03-18-2024 13:52-0400 Body weight 94.35 kg Nisha Farfan FINISHING DEPARTMENT SUPERVISOR Work Phone: [facility] 03-18-2024 13:52-0400 Diastolic blood pressure 92 mm[Hg] Nisha Farfan FINISHING DEPARTMENT SUPERVISOR Work Phone: [facility] 03-18-2024 13:52-0400 Heart rate 63 /min Nisha Farfan FINISHING DEPARTMENT SUPERVISOR Work Phone: [facility] 03-18-2024 13:52-0400 Respiratory rate 16 /min Nisha Farfan FINISHING DEPARTMENT SUPERVISOR Work Phone: [facility] 03-18-2024 13:52-0400 SaO2% (BldA) [Mass fraction] 98 % Nisha Farfan FINISHING DEPARTMENT SUPERVISOR Work Phone: [facility] 03-18-2024 13:52-0400 Systolic blood pressure 190 mm[Hg] Nisha Farfan FINISHING DEPARTMENT SUPERVISOR Work Phone: [facility] 03-15-2024 14:05-0400 Body weight 94.8 kg Freeman Candicebaugh TEA BAG MACHINE TENDER-ASSISTED SALES REPRESENTATIVE Work Phone: [facility] 03-15-2024 14:05-0400 Diastolic blood pressure 89 mm[Hg] Freeman Rumbaugh TEA BAG MACHINE TENDER-ASSISTED SALES REPRESENTATIVE Work Phone: [facility] 03-15-2024 14:05-0400 Heart rate 59 /min Freeman Rumbaugh TEA BAG MACHINE TENDER-ASSISTED SALES REPRESENTATIVE Work Phone: [facility] 03-15-2024 14:05-0400 Systolic blood pressure 211 mm[Hg] Freeman Rumbaugh TEA BAG MACHINE TENDER-ASSISTED SALES REPRESENTATIVE Work Phone: [facility] 02-17-2024 14:02-0400 Body height 172.7 cm Nisha Armandopatrick FINISHING DEPARTMENT SUPERVISOR Work Phone: [facility] 02-17-2024 14:02-0400 Body mass index (BMI) [Ratio] 32.23 kg/m2 Nisha Farfan FINISHING DEPARTMENT SUPERVISOR Work Phone: [facility] 02-17-2024 14:02-0400 Body temperature 98.29 [degF] Nisha Farfan FINISHING DEPARTMENT SUPERVISOR Work Phone: [facility] 02-17-2024 14:02-0400 Body weight 96.16 kg Nisha Farfan FINISHING DEPARTMENT SUPERVISOR Work Phone: [facility] 02-17-2024 14:02-0400 Diastolic blood pressure 90 mm[Hg] Nisha Farfan FINISHING DEPARTMENT SUPERVISOR Work Phone: [facility] Comment on above: RT ARM 160/100 [employer] [facility] 02-17-2024 14:02-0400 Heart rate 69 /min Nisha Farfan FINISHING DEPARTMENT SUPERVISOR Work Phone: [facility] Comment on above: 96% O2 02-17-2024 14:02-0400 Systolic blood pressure 160 mm[Hg] Nisha Farfan FINISHING DEPARTMENT SUPERVISOR Work Phone: [facility] Comment on above: RT ARM 160/100 LG CUFF 02-04-2024 15:55-0400 Body height 177.8 cm Nisha Farfan FINISHING DEPARTMENT SUPERVISOR Work Phone: [facility] 02-04-2024 15:55-0400 Body mass index (BMI) [Ratio] 30.13 kg/m2 Nisha Farfan FINISHING DEPARTMENT SUPERVISOR Work Phone: [facility] 02-04-2024 15:55-0400 Body temperature 98.4 [degF] Nisha Farfan FINISHING DEPARTMENT SUPERVISOR Work Phone: [facility] 02-04-2024 15:55-0400 Body weight 95.25 kg Nisha Farfan FINISHING DEPARTMENT SUPERVISOR Work Phone: [facility] 02-04-2024 15:55-0400 Diastolic blood pressure 120 mm[Hg] Nisha Farfan FINISHING DEPARTMENT SUPERVISOR Work Phone: [facility] Comment on above: RT ARM LG CUFF 170/120 02-04-2024 15:55-0400 Heart rate 66 /min Nisha Farfan FINISHING DEPARTMENT SUPERVISOR Work Phone: [facility] Comment on above: 98% O2 02-04-2024 15:55-0400 Systolic blood pressure 230 mm[Hg] Nisha Farfan FINISHING DEPARTMENT SUPERVISOR Work Phone: [facility] Comment on above: RT ARM LG CUFF 170/120 Encounters Encounter Date Encounter Type Care Provider Facility Start: 10-19-2024 End: 10-19-2024 Clinisync Result Encounter Radha Ramires FINISHING DEPARTMENT SUPERVISOR Work Phone: [facility] External Department Unsolicited Start: 10-19-2024 End: 10-19-2024 Clinisync Result Encounter Radha Ramires FINISHING DEPARTMENT SUPERVISOR Work Phone: [facility] External Department Unsolicited Start: 10-08-2024 End: 10-08-2024 Orders Only Radha Ramires FINISHING DEPARTMENT SUPERVISOR Work Phone: [facility] Comment on above: Elevated glucose (Pr imary Dx) Start: 10-07-2024 End: 10-07-2024 Clinisync Result Encounter Radha Ike FINISHING DEPARTMENT SUPERVISOR Work Phone: [facility] Unsolicited Start: 10-07-2024 End: 10-07-2024 Clinisync Result Encounter Radha Ike FINISHING DEPARTMENT SUPERVISOR Work Phone: [facility] Unsolicited Start: 10-04-2024 End: 10-04-2024 ambulatory [facility] Start: 09-27-2024 End: 09-27-2024 Bamboo flowsheet Radha Ike FINISHING DEPARTMENT SUPERVISOR Work Phone: [facility] Start: 09-27-2024 End: 09-27-2024 Bamboo flowsheet Radha Ike FINISHING DEPARTMENT SUPERVISOR Work Phone: [facility] Start: 09-27-2024 End: 09-27-2024 Office outpatient visit 25 minutes Radha Ike FINISHING DEPARTMENT SUPERVISOR Work Phone: [facility] Comment on above: Primary hypertension (CMS/HCC) (Primary Dx); Hyperlipidemia, unspecified hyperlipidemia type (CMS/HCC); Aortic valve calcification; Carotid stenosis, bilateral; Prostate cancer screening Start: 09-27-2024 End: 09-27-2024 ambulatory RADHA RAMIRES Not Available Start: 07-06-2024 End: 07-06-2024 ambulatory [facility] Start: 06-28-2024 End: 06-28-2024 Bamboo flowsheet Nisha Farfan FINISHING DEPARTMENT SUPERVISOR Work Phone: [facility] Start: 06-28-2024 End: 06-28-2024 Bamboo flowsheet Nisha Farfan FINISHING DEPARTMENT SUPERVISOR Work Phone: [facility] Start: 06-28-2024 End: 06-28-2024 ambulatory NISHA FARFAN Not Available Start: 06-28-2024 End: 06-28-2024 Office outpatient visit 15 minutes Nisha Farfan FINISHING DEPARTMENT SUPERVISOR Work Phone: [facility] Comment on above: Primary hypertension (CMS/HCC) (Primary Dx) Start: 05-20-2024 End: 05-20-2024 Clinisync Result Encounter Generic External Data Provider [facility] Unsolicited Start: 05-20-2024 End: 05-20-2024 Clinisync Result Encounter Generic External Data Provider [facility] External Department Unsolicited Start: 05-03-2024 ambulatory [facility] Start: 05-01-2024 End: 05-01-2024 Clinisync Result Encounter Generic External Data Provider [facility] External Department Unsolicited Start: 05-01-2024 End: 05-01-2024 Clinisync Result Encounter Generic External Data Provider [facility] External [facility] Unsolicited Start: 04-22-2024 End: 04-22-2024 Office outpatient visit 15 minutes Nisha Goldentrick FINISHING DEPARTMENT SUPERVISOR Work Phone: [facility] Comment on above: Primary hypertension (CMS/HCC) (Primary Dx); Resistant hypertension (CMS/HCC) Start: 04-22-2024 End: 04-22-2024 ambulatory NISHA FARFAN Not Available Start: 04-22-2024 End: 04-22-2024 Bamboo flowsheet Nisha Farfan FINISHING DEPARTMENT SUPERVISOR Work Phone: [facility] Start: 04-22-2024 End: 04-22-2024 Bamboo flowsheet Nisha Farfan FINISHING DEPARTMENT SUPERVISOR Work Phone: [facility] Start: 03-18-2024 End: 03-18-2024 Bamboo flowsheet Nisha Farfan FINISHING DEPARTMENT SUPERVISOR Work Phone: [facility] Start: 03-18-2024 End: 03-18-2024 Bamboo flowsheet Nisha Farfan FINISHING DEPARTMENT SUPERVISOR Work Phone: [facility] Start: 03-18-2024 End: 03-18-2024 Office outpatient visit 15 minutes Nisha Farfan FINISHING DEPARTMENT SUPERVISOR Work Phone: [facility] Comment on above: Resistant hypertensi on (CMS/HCC) (Primary Dx); Essential (primary) hypertension (CMS/HCC); Primary hypertension (CMS/HCC) Start: 03-18-2024 End: 03-18-2024 ambulatory NISHA FARFAN Not Available Start: 03-15-2024 End: 03-15-2024 Office outpatient new 20 minutes Liliya Robins DO Work Phone: [facility] Comment on above: Stenosis of left car otid artery (Primary Dx) Start: 02-23-2024 End: 02-23-2024 ambulatory [facility] Start: 02-21-2024 End: 02-21-2024 Clinisync Result Encounter Nisha Farfan FINISHING DEPARTMENT SUPERVISOR Work Phone: [facility] Unsolicited Start: 02-21-2024 End: 02-21-2024 Clinisync Result Encounter Nisha Farfan FINISHING DEPARTMENT SUPERVISOR Work Phone: [facility] Unsolicited Start: 02-17-2024 End: 02-17-2024 Bamboo flowsheet Nisha Farfan FINISHING DEPARTMENT SUPERVISOR Work Phone: [facility] Start: 02-17-2024 End: 02-17-2024 Bamboo flowsheet Nisha Farfan FINISHING DEPARTMENT SUPERVISOR Work Phone: [facility] Start: 02-17-2024 End: 02-17-2024 Office outpatient visit 15 minutes Nisha Goldentrick FINISHING DEPARTMENT SUPERVISOR Work Phone: [facility] Comment on above: Primary hypertension (CMS/HCC) (Primary Dx); Encounter for wellness examination in adult; Carotid stenosis, bilateral; Hyperlipidemia, unspecified hyperlipidemia type (CMS/HCC) Start: 02-17-2024 End: 02-17-2024 Patient encounter status Nisha Mooneyk FINISHING DEPARTMENT SUPERVISOR Work Phone: [facility] Start: 02-17-2024 End: 02-17-2024 ambulatory NISHA FARFAN Not Available Start: 02-04-2024 End: 02-04-2024 ambulatory NISHA FARAFN Not Available Start: 02-04-2024 End: 02-04-2024 Office outpatient visit 15 minutes Nisha Farfan FINISHING DEPARTMENT SUPERVISOR Work Phone: [facility] Comment on above: Primary hypertension (CMS/HCC) (Primary Dx) Start: 02-04-2024 End: 02-04-2024 Bamboo flowsheet Nisha Farfan FINISHING DEPARTMENT SUPERVISOR Work Phone: [facility] Start: 02-04-2024 End: 02-04-2024 Bamboo flowsheet Nisha Farfan FINISHING DEPARTMENT SUPERVISOR Work Phone: [facility] Start: 02-04-2024 Patient encounter status Yesica joy Farfan FINISHING DEPARTMENT SUPERVISOR Work Phone: [facility] Start: 10-27-2023 End: 10-27-2023 ambulatory CÉSAR GRAVES Not Available Procedures Date Procedure Procedure Detail Performing Clinician Start: 10-19-2024 MLR HEMOGLOBIN A1C Radha Ramires FINISHING DEPARTMENT SUPERVISOR Work Phone: Start: 10-07-2024 TBH UA (CLEAN/CATCH) MICROSCOPIC IF INDICATE Radha Ramires FINISHING DEPARTMENT SUPERVISOR Work Phone: Start: 05-20-2024 ALL LIPID PROFILE (FASTING) Generic External Data Provider Start: 05-20-2024 HP LIVER PANEL Generi c External Data Provider Start: 05-01-2024 ALL BASIC METABOLIC PANEL Generic External Data Provider Start: 02-21-2024 ALL CBC WITH AUTO DIFF Nisha Farfan FINISHING DEPARTMENT SUPERVISOR Work Phone: Plan of Treatment Date Care Activity Detail Author Start: 04-22-2025 Screening for malign ant neoplasm of colon Colorectal Cancer Screening [facility] Comment on above: Postponed from 05/10 (Patient Refused) Start: 03-29-2025 End: 03-29-2025 Patient encounter procedure 03/29/2025 1:30 PM EDT [facility] [address] [place] [address] [place] [address] [place] [address], [address] [place] [address] [facility] Start: 03-15-2025 End: 03-15-2025 US Carotid arteries - bilateral Vas carotid duplex bilateral Vascular Ultrasound Routine Stenosis of left carotid artery Expected: 03/15/2025 (Approximate), Expires: 03/15/2025 [facility] Work Phone: Comment on above: Expected: 03/15/2025 (Approximate), Expires: 03/15/2025 Start: 03-07-2025 End: 03-07-2025 Patient encounter procedure 03/07/2025 10:00 AM EDT Appointment [facility] [address] [place] [address] [facility] Start: 12-28-2024 End: 12-28-2024 Patient encounter procedure 12/28/2024 10:00 AM EDT Office Visit [facility] [address] [place] [address] Radha Ramires NP [address] [place] [address] [facility] Start: 10-08-2024 End: 10-08-2025 Hemoglobin A1c/Hemoglobin.total in Blood Hemoglobin A1c Lab Routine Elevated glucose Expected: 10/08/2024 (Approximate), Expires: 10/08/2025 [facility] Work Phone: Comment on above: Expected: 10/08/2024 (Approximate), Expires: 10/08/2025 Start: 09-27-2024 End: 09-27-2025 Basic metabolic 1998 panel - Serum or Plasma Basic metabolic panel Lab Routine Primary hypertension (CMS/HCC) Expected: 09/27/2024 (Approximate), Expires: 09/27/2025 [facility] Comment on above: Expected: 09/27/2024 (Approximate), Expires: 09/27/2025 Start: 09-27-2024 End: 09-27-2025 Microalbumin/Creatinine panel in random Urine Microalbumin / creatinine, urine ratio Lab Routine Primary hypertension (CMS/HCC) Expected: 09/27/2024 (Approximate), Expires: 09/27/2025 [facility] Comment on above: Expected: 09/27/2024 (Approximate), Expires: 09/27/2025 Start: 09-27-2024 End: 09-27-2025 Prostate specific Ag [Mass/volume] in Serum or Plasma PSA Lab Routine Prostate cancer screening Expected: 09/27/2024 (Approximate), Expires: 09/27/2025 [facility] Work Phone: Comment on above: Expected: 09/27/2024 (Approximate), Expires: 09/27/2025 Start: 09-27-2024 End: 09-27-2025 Urinalysis complete panel - Urine Urinalysis with reflex microscopic (clean catch) Lab Routine Primary hypertension (CMS/HCC) Expected: 09/27/2024 (Approximate), Expires: 09/27/2025 [facility] Comment on above: Expected: 09/27/2024 (Approximate), Expires: 09/27/2025 Start: 09-27-2024 End: 09-27-2024 Patient encounter procedure [facility] Comment on above: Primary hypertension (CMS/HCC) (Primary Dx); Hyperlipidemia, unspecified hyperlipidemia type (CMS/HCC); Aortic valve calcification; Carotid stenosis, bilateral; Prostate cancer screening Start: 06-21-2024 End: 06-21-2024 Patient encounter procedure 06/21/2024 3:00 PM EST Office Visit [facility] [address] [place] [address] Nisha Farfan NP [address] [place] [address] [facility] Start: 04-22-2024 End: 04-22-2024 Patient encounter procedure [facility] Comment on above: Arrived Start: 03-18-2024 End: 03-18-2024 Patient encounter procedure [facility] Comment on above: Arrived Start: 03-18-2024 End: 03-18-2025 US.doppler Renal artery Vascular US renal artery duplex complete Imaging Routine Resistant hypertension (CMS/HCC) Essential (primary) hypertension (CMS/HCC) Expected: 03/18/2024, Expires: 03/18/2025 [facility] Work Phone: Comment on above: Expected: 03/18/2024 , Expires: 03/18/2025 Start: 02-17-2024 End: 02-16-2025 CBC W Auto Differential panel - Blood CBC and differential Lab Routine Primary hypertension (CMS/HCC) Expected: 02/17/2024 (Approximate), Expires: 02/16/2025 [facility] Comment on above: Expected: 02/17/2024 (Approximate), Expires: 02/16/2025 Start: 02-17-2024 End: 02-16-2025 Comprehensive metabolic 2000 panel - Serum or Plasma Comprehensive metabolic panel Lab Routine Primary hypertension (CMS/HCC) Expected: 02/17/2024 (Approximate), Expires: 02/16/2025 [facility] Comment on above: Expected: 02/17/2024 (Approximate), Expires: 02/16/2025 Start: 02-17-2024 End: 02-16-2025 Hemoglobin A1c/Hemoglobin.total in Blood Hemoglobin A1c Lab Routine Encounter for wellness examination in adult Expected: 02/17/2024 (Approximate), Expires: 02/16/2025 [facility] Comment on above: Expected: 02/17/2024 (Approximate), Expires: 02/16/2025 Start: 02-17-2024 End: 02-16-2025 Lipid 1996 panel - Serum or Plasma Lipid panel Lab Routine Primary hypertension (CMS/HCC) Carotid stenosis, bilateral Hyperlipidemia, unspecified hyperlipidemia type (CMS/HCC) Expected: 02/17/2024 (Approximate), Expires: 02/16/2025 [facility] Comment on above: Expected: 02/17/2024 (Approximate), Expires: 02/16/2025 Start: 02-17-2024 End: 02-17-2024 Patient encounter procedure 02/17/2024 2:00 PM EDT Office Visit [facility] [address] [place] [phone] Nisha Farfan, FINISHING DEPARTMENT SUPERVISOR [address] [place] [phone] Arrived [facility] Comment on above: Arrived Start: 02-17-2024 End: 02-16-2025 TSH W/REFLEX TO FT4 TSH W/REFLEX TO FT4 Lab Routine Primary hypertension (CMS/HCC) Encounter for wellness examination in adult Expected: 02/17/2024 (Approximate), Expires: 02/16/2025 [facility] Work Phone: Comment on above: Expected: 02/17/2024 (Approximate), Expires: 02/16/2025 Start: 02-15-2024 Influenza vaccination N [facility] Start: 02-04-2024 End: 02-04-2024 Patient encounter procedure 02/04/2024 4:00 PM EDT Office Visit [facility] [address] [place] [phone] Nisha Farfan, FINISHING DEPARTMENT SUPERVISOR [address] [place] [address] Encounter for wellness examination in adult (Primary Dx); Primary hypertension (CMS/HCC) [facility] Comment on above: Encounter for wellne ss examination in adult (Primary Dx); Primary hypertension (CMS/HCC) Start: 2009 Administration of varicella zoster vaccine Zoster (Shingles) Vaccine (1 of 2) [facility] Start: 1978 DTaP,Tdap and Td Vaccines (1 - Tdap) DTaP,Tdap and Td Vaccines (1 - Tdap) [facility] Start: 1978 Pneumococcal Vaccine : 65+ Years (1 of 2 - PCV) Pneumococcal Vaccine: 65+ Years (1 of 2 - PCV) [facility] Start: 1977 Adult BMI Screening Adult BMI Screen ing [facility] Start: 1971 Depression Screening Depression Scre ening [facility] Start: 1971 Tobacco Screening Tobacco Screening [facility] Start: 1965 Pneumococcal Vaccine : 65+ Years (1 of 2 - PCV) Pneumococcal Vaccine: 65+ Years (1 of 2 - PCV) [facility] Start: 1959 Medicare Annual Well ness (AWV) Medicare Annual Wellness (AWV) [facility] Start: 1959 Screening for malign ant neoplasm of colon [facility] Payers Date Payer Category Payer Medicare MEDICARE [id number] 2024 Medicare [id number] 2022 Private Health Insurance [id number] 2022 Unknown [id number] 2022 Unknown [id number] 1959 Unknown [id number] 1959 Unknown [id number] [id number] 1959 Unknown [id number] [id number] 1959 Unknown [id number] [id number] 1959 Unknown [id number] [id number] 1959 Unknown [id number] [id number] 1959 Unknown [id number] Social History Date Type Detail Facility Start: 10-27-2023 End: 02-04-2024 Tobacco smoking status NHIS Never smoked tobacco [facility] Start: 10-27-2023 End: 02-04-2024 Tobacco use and exposure Smokeless tobacco non-user [facility] Start: 02-17-2024 End: 09-27-2024 Alcoholic beverage intake Current drinker of alcohol (finding) [facility] Start: 10-27-2023 End: 02-17-2024 Alcoholic beverage intake [facility] Start: 10-27-2023 End: 02-17-2024 Social connection and isolation panel [facility] Do you belong to any clubs or organizations such as episcopalian groups, unions, fraternal or athletic groups, or school groups? No [facility] Are you now , , , , never or living with a partner? [facility] How often to you hav e a drink containing alcohol? 4 or more times a week [facility] How many standard drinks containing alcohol do you have on a [...] at Not on file [facility] Tobacco smoking stat [facility] Tobacco smoking consumption unknown [facility] NEGATED: Highlighted rowStart: LAVELLE History of tobacco use Passive smoker [facility] Clinical Notes 02-04-2024 to 10-04-2024 ERIC BAUER - 09/27/2024 9:20 AM EDTLisa Ike, FINISHING DEPARTMENT SUPERVISOR - 09/27/2024 9:20 AM EDTLisa Ike, FINISHING DEPARTMENT SUPERVISOR - 09/27/2024 6:35 AM EDTLisa Ike, FINISHING DEPARTMENT SUPERVISOR - 09/27/2024 6:35 AM EDTPatient Instructions Note Date & Type Note Facility 10-04-2024 Note [facility] Note Reason for cardiology visit: F/U Hypertension HPI: 10/04/2024 Patient is here today for follow-up visit. He denies any chest pain or shortness of breath at rest or with exertion. Denies orthopnea or paroxysmal nocturnal dyspnea or dizziness or palpitations. He has legs edema which is chronic. He denies legs discomfort with exertion He reports that his blood pressure is always similar to his blood pressure today when he checks it at home. He denies any associated symptoms 07/06/2024 Patient is here today for follow-up visit. He has his blood pressure log with him and his blood pressure is much better than before. Couple occasions was high. He reports mild swelling in his legs but no discomfort. He denies any chest pain or shortness of breath at rest or with exertion. Denies orthopnea or paroxysmal nocturnal dyspnea or dizziness or palpitations 05/03/2024 Patient is here today for follow-up [...] Chief Complaint: high blood pressure, occasional edema Kyle Rapp is a 64 y.o. male without prior cardiac history, he has history of hypertension, hypertension lipidemia. No prior cardiac history. No history of diabetes mellitus. He was in [facility] in October 2023 with double vision, [...] to 150s to 160s. He works at [employer] and he is active at his job [...] He reports current alcohol use of about 14.0 standard drinks of alcohol per week. He reports current drug use. Drug: Marijuana. Family History Family History Problem Relation Name Age of Onset No Known Problems Mother No Known Problems Father Allergies Patient has no known allergies. Medications Current Outpatient Medications: atorvastatin (Lipitor) 20 mg tablet, Take 1 tablet (20 mg) by mouth in the morning., Disp: 30 tablet, Rfl: 11 carvedilol (Coreg) 25 mg tablet, Take 1 tablet (25 mg) by mouth with breakfast and with evening meal., Disp: 60 tablet, Rfl: 11 hydrALAZINE (Apresoline) 25 mg tablet, Take 1 tablet (25 mg) by mouth three times daily., Disp: 90 tablet, Rfl: 11 NIFEdipine XL (Procardia XL) 90 mg 24 hr tablet, Take 1 tablet (90 mg) by mouth in the morning. Do not crush, chew, or split., Disp: 30 tablet, Rfl: 11 Last Recorded Vitals Visit Vitals BP 152/80 (BP Location: Left arm, Patient Position: Sitting) Pulse 58 Ht 1.727 m (5' 8 ) Wt 92.1 kg (203 lb) SpO2 95% BMI 30.87 kg/m??? Smoking Status Never BSA 2.1 m??? Physical Examination: GENERAL: alert and oriented x3, well developed, in no acute distress. HEAD: atraumatic, normocephalic. EYES: UMU, EOMI. NECK: trachea midline, no JVD present, no carotid bruits present. CARDIAC: S1, S2 present. RRR. Systolic ejection murmur 3/6 at the aortic area RESPIRATORY: CTAB, no increased effort of breathing, no rales, rhonchi, or wheezing. ABDOMEN: soft, nontender, nondistended. EXTREMITIES: +1 edema bilaterally. No rash/skin discoloration present. NEURO: strength/sensation equal and symmetric in bilateral upper and lower extremities. PSYCH: appropriate mood, affect, and judgement. Labs: 05/20/2024 Cholesterol 167, HDL 88, LDL 69, triglyceride 51 AST 17, ALT 25, alk phos 44, total protein 7.3, albumin 3.7, and total bilirubin 1.3 04/30/2024 Sodium 142, potassium (more content not included)... [facility] 09-27-2024 History of Present illness Narrative Pt's BP remains elevated and higher in Left arm than right. Per Vascular- this may be attributed to carotid stenosis. Left arm: 178/78 Right arm: 150/82 Pt states he has not been checking BP at home Pt states no complaints of dizziness or headaches. Images from the original note were not included. Kyle Rapp is a 64 y.o. male presents with chief complaint of Hypertension HPI: Hypertension This is a chronic problem. The current episode started more than 1 year ago. The problem is unchanged. The problem is uncontrolled. Associated symptoms include peripheral edema. Pertinent negatives include no blurred vision, headaches, palpitations or shortness of breath. There are no associated agents to hypertension. Risk factors for coronary artery disease include dyslipidemia, male gender and obesity. Past treatments include beta blockers, calcium channel blockers and direct vasodilators. The current treatment provides moderate improvement. There are no compliance problems. SUBJECTIVE: MEDICATIONS: Current Outpatient Medications Medication Instructions atorvastatin (LIPITOR) 20 mg, Daily carvedilol (Coreg) 25 MG tablet TAKE 1 TABLET BY MOUTH WITH BREAKFAST AND TAKE 1 TABLET WITH EVENING MEAL hydrALAZINE (APRESOLINE) 25 mg, 2 times daily NIFEdipine CC (Adalat CC) 90 MG 24 hr tablet TAKE 1 TABLET BY MOUTH ONCE DAILY IN THE MORNING DO NOT CRUSH, CHEW OR SPLIT ALLERGIES: No Known Allergies REVIEW OF SYMPTOMS: Review of Systems Constitutional: Negative for activity change, appetite change and unexpected weight change. HENT: Negative for ear pain, nosebleeds, sneezing, trouble swallowing and voice change. Eyes: Negative for blurred vision, pain, discharge and visual disturbance. Respiratory: Negative for apnea, chest tightness, shortness of breath and wheezing. Cardiovascular: Positive for leg swelling. Negative for palpitations. Gastrointestinal: Negative for abdominal distention, blood in stool, constipation and diarrhea. Genitourinary: Negative for decreased urine volume, difficulty urinating, dysuria and hematuria. Skin: Negative for color change. Neurological: Negative for dizziness, tremors, seizures and headaches. Psychiatric/Behavioral: Negative for agitation, decreased concentration, hallucinations, self-injury and suicidal ideas. The patient is not nervous/anxious. Hematological: Negative for adenopathy. Does not bruise/bleed easily. Endocrine: Negative for cold intolerance, heat intolerance, polydipsia and polyuria. Allergic/Immunologic: Negative for environmental allergies and food allergies. PAST MEDICAL HISTORY Past Medical History: Diagnosis Date Hypertension (CMS/HCC) History reviewed. No pertinent surgical history. family history includes Heart defect in his mother; No Known Problems in his brother, daughter, and sister; Parkinsonism in his father. OBJECTIVE: Visit Vitals BP 150/82 (BP Location: Left arm, Patient Position: Sitting, BP Cuff Size: Large adult) Pulse 58 Temp 98.1 F (Temporal) Wt 202 lb 12.8 oz SpO2 98% BMI 30.84 kg/m Smoking Status Never BSA 2.1 m Physical Exam Vitals and nursing note reviewed. Constitutional: Appearance: Normal appearance. HENT: Head: Normocephalic. Right Ear: External ear normal. Left Ear: External ear normal. Nose: Nose normal. Mouth/Throat: Mouth: Mucous membranes are moist. Pharynx: Oropharynx is clear. Eyes: Extraocular Movements: Extraocular movements intact. Conjunctiva/sclera: Conjunctivae normal. Neck: Vascular: Carotid bruit (bilat) present. Cardiovascular: Rate and Rhythm: Normal rate and regular rhythm. Pulses: Normal pulses. Heart sounds: Murmur heard. Pulmonary: Effort: Pulmonary effort is normal. Breath sounds: Normal breath sounds. No wheezing or rhonchi. Abdominal: General: Bowel sounds are normal. Palpations: Abdomen is soft. Musculoskeletal: Cervical back: Neck supple. Right lower leg: Edema present. Left lower leg: Edema present. Comments: 1+ pre tibial bilat Skin: General: Skin is warm and dry. Capillary Refill: Capillary refill takes 2 to 3 seconds. Neurological: General: No focal deficit present. Mental Status: He is alert. Psychiatric: Mood and Affect: Mood normal. Behavior: Behavior normal. Thought Content: Thought content normal. Judgment: Judgment normal. ASSESSMENT AND PLAN: Follow up in about 3 months (around 12/27/2024) for AWV, Recheck. Problem List Items Addressed This Visit Primary hypertension (CMS/HCC) - Primary (Chronic) Please check blood pressure daily and record DASH diet Limit caffeine Take medication as directed Contact office if chest pain, pressure, dizziness, shortness of breath, swelling legs Recommend slow position changes Does drink 1 beer and 2 shots of whisky each night, I did discuss with him that this could increase his blood pressure as well Pt was not sure of his current meds, I did call [facility] in [place], Nifedipine 90mg, hydralazine 25mg BID, carvedilol 25mg BID, however no arb/hydrochlorothiazide dose Relevant Orders Basic metabolic panel Urinalysis with reflex microscopic (clean catch) Microalbumin / creatinine, urine ratio Carotid stenosis, bilateral (Chronic) Mod on the left, mild on the right Is on statin, cardiology is monitioring HLD (hyperlipidemia) (CMS/HCC) (Chronic) On statin therapy Check labs yearly and prn dose changes Aortic valve calcification (Chronic) Follows with [facility] Cardiology Reviewed last notes from 07/06/24 note Prostate cancer screening Relevant Orders PSA Associated Problem(s): HLD (hyperlipidemia) (CMS/HCC) On statin therapy Check labs yearly and prn dose changes Associated Problem(s): Primary hypertension (CMS/[facility]) Please check blood pressure daily and record DASH diet Limit caffeine Take medication as directed Contact office if chest pain, pressure, dizziness, shortness of breath, swelling legs Recommend slow position changes Does drink 1 beer and 2 shots of whisky each night, I did discuss with him that this could increase his blood pressure as well Pt was not sure of his current meds, I did call [facility] in [place], Nifedipine 90mg, hydralazine 25mg BID, carvedilol 25mg BID, however no arb/hydrochlorothiazide dose Associated Problem(s): Carotid stenosis, bilateral Mod on the left, mild on the right Is on statin, cardiology is monitioring Associated Problem(s): Aortic valve calcification Follows with [facility] Cardiology Reviewed last notes from 07/06/24 note documented in this encounter [facility] 09-27-2024 Instructions Radha Ramires NP - 09/27/2024 9:20 AM EDT Continue with cardiology Will call [place] to verify meds documented in this encounter [facility] 07-06-2024 Note [facility] Note Reason for cardiology visit: F/U Hypertension HPI: 07/06/2024 Patient is here today for follow-up visit. He has his blood pressure log with him and his blood pressure is much better than before. Couple occasions was high. He reports mild swelling in his legs but no discomfort. He denies any chest pain or shortness of breath at rest or with exertion. Denies orthopnea or paroxysmal nocturnal dyspnea or dizziness or palpitations 05/03/2024 Patient is here today for follow-up [...] Chief Complaint: high blood pressure, occasional edema Kyle Rapp is a 64 y.o. male without prior cardiac history, he has history of hypertension, hypertension lipidemia. No prior cardiac history. No history of diabetes mellitus. He was in [facility] in October 2023 with double vision, [...] to 150s to 160s. He works at [employer] and [employer] and he is active at his job [...] no known allergies. Medications Current Outpatient Medications: atorvastatin (Lipitor) 20 mg tablet, Take 1 tablet (20 mg) by mouth in the morning., Disp: 30 tablet, Rfl: 11 carvedilol (Coreg) 25 mg tablet, Take 1 tablet (25 mg) by mouth with breakfast and with evening meal., Disp: 60 tablet, Rfl: 11 hydrALAZINE (Apresoline) 25 mg tablet, Take 25 mg by mouth two times daily., Disp: , Rfl: NIFEdipine XL (Procardia XL) 90 mg 24 hr tablet, Take 1 tablet (90 mg) by mouth in the morning. Do not crush, chew, or split., Disp: 30 tablet, Rfl: 11 metoprolol succinate XL (Toprol-XL) 50 mg 24 hr tablet, Take 1 tablet (50 mg) by mouth in the morning., Disp: 30 tablet, Rfl: 11 Last Recorded Vitals Visit Vitals Pulse 66 Ht 1.727 m (5' 8 ) Wt 89.8 kg (198 lb) SpO2 98% BMI 30.11 kg/m??? Smoking Status Never BSA 2.08 m??? Physical Examination: GENERAL: alert and oriented x3, well developed, in no acute distress. HEAD: atraumatic, normocephalic. EYES: UMU, EOMI. NECK: trachea midline, no JVD present, no carotid bruits present. CARDIAC: S1, S2 present. RRR. Systolic ejection murmur 3/6 at the aortic area RESPIRATORY: CTAB, no increased effort of breathing, no rales, rhonchi, or wheezing. ABDOMEN: soft, nontender, nondistended. EXTREMITIES: +1 edema bilaterally. No rash/skin discoloration present. NEURO: strength/sensation equal and symmetric in bilateral upper and lower extremities. PSYCH: appropriate mood, affect, and judgement. Labs: 05/20/2024 Cholesterol 167, HDL 88, LDL 69, triglyceride 51 AST 17, ALT 25, alk phos 44, total protein 7.3, albumin 3.7, and total bilirubin 1.3 04/30/2024 Sodium 142, potassium 4.4, BUN 17, [...] 222, LDL 132, HDL 73 TSH 1.761 02/04/2024 (more content not included)... [facility] 06-28-2024 History of Present illness Narrative Associated Problem(s): Primary hypertension (CMS/HCC) Following closely with Dr. Nation Cardiology Currently taking: Losartan-HCTZ 100mg/25mg Carvedilol 25mg Nifedipine 90mg Spironolactone 50mg Denies orthostatic changes, dizziness, cough, shortness of breath, swelling in extremities. Has decreased alcohol intake to 1 can of beer and 2 shots of whiskey 2-3 times per week. (Was 7 days per week before) Advised pt to continue checking BP twice per day and record results in log. Bring back to next visit. BP significantly better today in office than previous visits. 142/70. Was seen by both Cardiology and to Vascular; Renal ultrasound Inconclusive due to gas [...] vascular and measure BP in Left arm. Pt states he adheres to medication regimen as directed. Images from the original note were not included. Subjective Patient ID: Kyle Rapp is a 64 y.o. male who presents for Hypertension. HPI HTN: Following closely with Dr. Nation Cardiology Currently taking: Losartan-HCTZ 100mg/25mg Carvedilol 25mg Nifedipine 90mg Spironolactone 50mg Denies orthostatic changes, dizziness, cough, shortness of breath, swelling in extremities. Has decreased alcohol intake to 1 can of beer and 2 shots of whiskey 2-3 times per week. (Was 7 days per week before) Advised pt to continue checking BP twice per day and record results in log. Bring back to next visit. BP significantly better today in office than previous visits. 142/70. Was seen by both Cardiology and to Vascular; Renal ultrasound Inconclusive due to gas [...] vascular and measure BP in Left arm. Pt states he adheres to medication regimen as directed. Review of Systems Constitutional: Negative for activity [...] Vitals reviewed. Constitutional: Appearance: Normal appearance. HENT: Right Ear: Tympanic membrane normal. Left Ear: [...] sounds are normal. Palpations: Abdomen is soft. Skin: Capillary Refill: Capillary refill takes less than 2 seconds. Neurological: Mental Status: He is alert and oriented to person, place, and time. Assessment/Plan Problem List Items Addressed This Visit Primary hypertension (CMS/HCC) - Primary (Chronic) Following closely with Dr. Nation Card[facility] Currently taking: Losartan-HCTZ 100mg/25mg Carvedilol 25mg Nifedipine 90mg Spironolactone 50mg Denies orthostatic changes, dizziness, cough, shortness of breath, swelling in extremities. Has decreased alcohol intake to 1 can of beer and 2 shots of whiskey 2-3 times per week. (Was 7 days per week before) Advised pt to continue checking BP twice per day and record results in log. Bring back to next visit. BP significantly better today in office than previous visits. 142/70. Was seen by both Cardiology and to Vascular; Renal ultrasound Inconclusive due to gas [...] vascular and measure BP in Left arm. Pt states he adheres to medication regimen as directed. documented in this encounter [facility] 06-28-2024 Instructions Nisha Farfan NP - 06/28/2024 8:30 AM EST Call if you need anything! documented in this encounter [facility] 05-03-2024 Note [facility] Note Reason for cardiology [...] Chief Complaint: high blood pressure, occasional edema Kyle Rapp is a 63 y.o. male without prior cardiac history, he has history of hypertension, hypertension lipidemia. No prior cardiac history. No history of diabetes mellitus. He was in [facility] in October 2023 with double vision, [...] to 150s to 160s. He works at [employer] and he is active at his job [...] x-ray 02/04/2024 Impression (more content not included)... [facility] 04-22-2024 History of Present illness Narrative Associated Problem(s): Primary hypertension (CMS/[facility]) Pt was seen one month ago for [...] note were not included. Subjective Patient ID: Kyle Rapp is a 63 y.o. male who presents for No chief complaint on file.. HPI Review of Systems Objective Physical Exam Assessment/Plan Images from the original note were not included. Subjective Patient ID: Kyle Rapp is a 63 y.o. male who [...] 25 MG tablet documented in this encounter [facility] 04-22-2024 Instructions Nisha Farfan NP - 04/22/2024 [...] TO ER IMMEDIATELY!!!! documented in this encounter [facility] 03-18-2024 History of Present illness Narrative Associated Problem(s): Primary hypertension (CMS/HCC) [...] note were not included. Subjective Patient ID: Kyle Rapp is a 63 y.o. male who [...] artery duplex complete documented in this encounter [facility] 03-18-2024 Instructions Nisha Farfan NP - 03/18/2024 [...] TO ER IMMEDIATELY!!!! documented in this encounter [facility] 03-15-2024 History of Present illness Narrative Images from the original note were not included. HPI: Kyle Rapp with a medical history of hypertension presents for a follow-up of carotid stenosis disease. He had presented to [facility] in the beginning of October of this year with elevated blood pressure and concerns of hypertensive emergency. During his cardiac and stroke workup in the ER a CTA of carotids was completed. The CTA of the carotids did show signs of mild plaque in the right ICA and moderate stenosis in the left ICA. He is here in the office today to discuss these findings of his CTA carotids. He denies any neurologic symptoms such as unilateral numbness or weakness. No amaurosis fugax, dizziness or visual disturbances. His blood pressure has been well maintained since being placed on amlodipine and metoprolol. He is also currently taking Lipitor 20 mg daily. He did have some questions about blood pressure differences between his right and left arm. I did explain to him that with his stenosis on the left carotid blood pressure on that side could be elevated higher than readings on the right. I instructed him in order to obtain a more of an accurate blood pressure reading I advised him to take his blood pressures on the left side. Subjective: Patient Active Problem List Diagnosis Stenosis of left carotid artery Problem list reviewed as part of this encounter. Medication list reviewed and updated. Allergies were reviewed and updated. See nursing note. History of present illness reviewed in detail and expanded by me. Review of Systems All other systems reviewed and are negative. Objective: Physical Exam HENT: Head: Normocephalic. Cardiovascular: Pulses: Dorsalis pedis pulses are 1+ on the right side and 1+ on the left side. Posterior tibial pulses are 1+ on the right side and 1+ on the left side. Pulmonary: Effort: Pulmonary effort is normal. Breath sounds: Normal breath sounds. Musculoskeletal: Cervical back: Normal range of motion. Right lower leg: No edema. Left lower leg: No edema. Neurological: General: No focal deficit present. Mental Status: He is alert and oriented to person, place, and time. Psychiatric: Mood and Affect: Mood normal. Behavior: Behavior normal. Thought Content: Thought content normal. Judgment: Judgment normal. BP (!) 211/89 Pulse 59 Wt 94.8 kg (209 lb) Studies: Carotid Duplex - No results found. Assessment: 1. Stenosis of left carotid artery Plan: He is doing well. Recommend continued surveillance with repeat carotid scan in 1 year. We discussed current medications regiment that include statin, and BP management. I agree these medications are appropriate and should be continued for their medical medication management. All questions were answered and the patient was advised to contact the office with any new questions or concerns. Thank you for allowing me to continue in the management of this patient. Electronically signed by SINDHU Mcclain 03/15/2024 at 2:46 PM This note was created with the assistance of a speech-recognition program. Although the intention is to generate a document that accurately reflects the content of the visit, no guarantees can be provided that every mistake/misinterpretation has been identified and corrected by editing. SINDHU Mcclain 03/15/24 1459 documented in this encounter [facility] 02-23-2024 Note [facility] Note Reason for cardiology consult: Hypertension Chief Complaint: high blood pressure, occasional edema HPI: Kyle Rapp is a 63 y.o. male without prior cardiac history, he has history of hypertension, hypertension lipidemia. No prior cardiac history. No history of diabetes mellitus. He was in [facility] in October 2023 with double vision, [...] to 150s to 160s. He works at [employer] and he is active at his job [...] to amlodipine but (more content not included)... [facility] 02-17-2024 History of Present illness Narrative Associated Problem(s): Primary hypertension (CMS/HCC) Currently taking Amlodipine 10mg Losartan-HCTZ 100mg/25mg Checks BP at home; Averages are 140's-160's. Denies orthostatic changes, dizziness, cough, shortness of breath, swelling in extremities. In October 2023 this was an ongoing situation- Dr. Graves had recommended pt follow up with Nephrology but pt declined at that time. Is agreeable to see nephrology today. Referral sent. Subjective Patient ID: Kyle Rapp is a 63 y.o. male who presents for Hypertension and ER Follow-up. HPI HTN: Currently taking Amlodipine 10mg Losartan-HCTZ 100mg/25mg Checks BP at home; Averages are 140's-160's. Denies orthostatic changes, dizziness, cough, shortness of breath, swelling in extremities. Does drink 1 can of beer and 3-4 shots of whiskey per day. In October 2023 this was an ongoing situation- Dr. Graves had recommended pt follow up with Nephrology but pt declined at that time. Is agreeable to see nephrology today. Following further discussion- will send referral to Cardiology for persistent HTN. Is seeing Vascular this 02/17/2024; Review of Systems Constitutional: Negative for activity [...] Items Addressed This Visit Primary hypertension (CMS/HCC) - Primary (Chronic) Currently taking Amlodipine 10mg Losartan-HCTZ 100mg/25mg Checks BP at home; Averages are 140's-160's. Denies orthostatic changes, dizziness, cough, shortness of breath, swelling in extremities. In October 2023 this was an ongoing situation- Dr. Graves had recommended pt follow up with Nephrology but pt declined at that time. Is agreeable to see nephrology today. Referral sent. Relevant Medications amLODIPine (Norvasc) 10 MG tablet losartan-hydroCHLOROthiazide (Hyzaar) 100-25 MG tablet metoprolol succinate XL (Toprol-XL) 25 MG 24 hr tablet Other Relevant Orders TSH W/REFLEX TO FT4 Lipid panel Comprehensive metabolic panel CBC and differential Ambulatory referral to Cardiology Carotid stenosis, bilateral (Chronic) Relevant Medications metoprolol succinate XL (Toprol-XL) 25 MG 24 hr tablet Other Relevant Orders Lipid panel Ambulatory referral to Cardiology HLD (hyperlipidemia) (CMS/HCC) (Chronic) Relevant Orders Lipid panel Encounter for wellness examination in adult Relevant Orders TSH W/REFLEX TO FT4 Hemoglobin A1c documented in this encounter [facility] 02-17-2024 Instructions Nisha Farfan NP - 02/17/2024 2:00 PM EDT Your blood pressure is TOO HIGH in the office today. Check your blood pressure at home 3 times per week, preferably in the afternoon. Goal <130/90. Record results in blood pressure log. Bring back with you to your next visit. Decrease alcohol consumption! This can have a significant impact on your blood pressure. DASH diet: Healthy eating to lower your blood pressure DASH stands for Dietary Approaches to Stop Hypertension. The DASH diet is a healthy-eating plan designed to help prevent or treat high blood pressure, also called hypertension. It also may help lower cholesterol linked to heart disease, called low density lipoprotein (LDL) cholesterol. High blood pressure and high LDL cholesterol levels are two major risk factors for heart disease and stroke. Foods in the DASH diet are rich in the minerals potassium, calcium and magnesium. The DASH diet focuses on vegetables, fruits and whole grains. It includes fat-free or low-fat dairy products, fish, poultry, beans and nuts. The diet limits foods that are high in salt, also called sodium. It also limits added sugar and saturated fat, such as in fatty meats and full-fat dairy products. DASH diet and sodium The standard DASH diet limits salt to 2,300 milligrams (mg) a day. That amount agrees with the Dietary Guidelines for Americans. That's about the amount of sodium in 1 teaspoon of table salt. A lower sodium version of DASH restricts sodium to 1,500 mg a day. You can choose the version of the diet that meets your health needs. If you aren't sure what sodium level is right for you, talk to your health care provider. DASH diet: What to eat The DASH diet is a balanced eating plan that gives choices of what to eat. The diet helps create a heart-healthy eating style for life. There's no need for special foods or drinks. Foods in the diet are at grocery stores and in most restaurants. When following DASH, it is important to choose foods that are: Rich in potassium, calcium, magnesium, fiber and protein. Low in saturated fat. Low in salt. DASH diet: Suggested servings The DASH diet provides daily and weekly nutritional goals. The number of servings depends on daily calorie needs. Here's a look at the recommended servings from each food group for a 2,[id number]-day DASH diet: Grains: 6 to 8 servings a day. One serving may be 1/2 cup of cooked cereal, rice or pasta, 1 slice of bread or 1 ounce dry cereal. Vegetables: 4 to 5 servings a day. One serving is 1 cup raw leafy green vegetable, 1/2 cup cut-up raw or cooked vegetables, or 1/2 cup vegetable juice. Fruits: 4 to 5 servings a day. One serving is one medium fruit, 1/2 cup fresh, frozen or canned fruit, or 1/2 cup fruit juice. Fat-free or low-fat dairy products: 2 to 3 servings a day. One serving is 1 cup milk or yogurt, or 1 1/2 ounces cheese. Lean meats, poultry and fish: six 1-ounce servings or fewer a day. One serving is 1 ounce of cooked meat, poultry or fish, or 1 egg. Nuts, seeds, or dry beans and peas: 4 to 5 servings a week. One serving is 1/3 cup nuts, 2 tablespoons peanut butter, 2 tablespoons seeds, or 1/2 cup cooked dried beans or peas, also called legumes. Fats and oils: 2 to 3 servings a day. One serving is 1 teaspoon soft margarine, 1 teaspoon vegetable oil, 1 tablespoon mayonnaise or 2 tablespoons salad dressing. Sweets and added sugars: 5 servings or fewer a week. One serving is 1 tablespoon sugar, jelly or jam, 1/2 cup sorbet or 1 cup lemonade. DASH diet: Alcohol and caffeine Drinking too much alcohol can increase blood pressure. The Dietary Guidelines for Americans recommends that men limit alcohol to no more than two drinks a day and women to one or less. The DASH diet doesn't talk about caffeine. How caffeine affects blood pressure isn't clear. But caffeine can cause blood pressure to rise at least briefly. If you have high blood pressure or if you think caffeine affects your blood pressure, think about cutting down. You might talk to your health care provider about caffeine. Take aim at salt The foods at the center of the DASH diet are low in salt. So following the DASH diet is likely to lower salt intake. To further reduce salt: Read food labels and choose low-salt or [id number] options. Use salt-free spices or flavorings instead of salt. Don't add salt when cooking rice, pasta or hot cereal. Choose plain fresh or frozen vegetables. Choose fresh skinless poultry, fish and lean cuts of meat. Eat less restaurant food. When eating at restaurants, ask for dishes with less salt and ask not to have salt added to your order. As you cut back on processed, salty foods, you might notice that food tastes different. It can take time for your taste buds to adjust. But once they do, you might prefer the DASH way of eating. And you'll be healthier for it. Dizziness, blurry vision, chest pain ,shortness of breath, numbness/tingling, or BP GREATER THAN 180, GO TO ER!!!!! documented in this encounter [facility] 02-04-2024 History of Present illness Narrative Associated Problem(s): Primary hypertension (CMS/HCC) See above OV note. 02/04/24 Images from the original note were not included. Subjective Patient ID: Kyle Rapp is a 63 y.o. male who presents for Establish Care. HPI Pt BP checked manually by provider 230/130. Pt states he did not take both of his meds today, he believes he took one but is unsure which. Denies chest pain, shortness of breath, arm pain, numbness, tingling, blurry vision, headache. Ears are reddened and +3 pitting edema noted to bilateral lower extremities. Discussed in detail with patient importance of taking BP medication daily and reporting immediately to ER. Pt daughter present with him, states she drove him today. Daughter was reluctant to take pt to ER now, as her daughter has school orientation @6pm. I offered to have pt transported via EMS, pt and daughter declined. Stated they would report to [facility] now. Advised pt to follow up after discharged from hospital. Called Report to [facility] @[id number] to RUTHIE Hidalgo. Review of Systems Respiratory: Negative for cough, chest tightness, shortness of breath and wheezing. Cardiovascular: Positive for leg swelling. Negative for chest pain and palpitations. Neurological: Negative for dizziness, tremors, seizures, syncope, facial asymmetry, speech difficulty, weakness, light-headedness, numbness and headaches. Objective Physical Exam HENT: Ears: Comments: Redness to external ears. Musculoskeletal: Right lower le+ Edema present. Left lower le+ Edema present. Assessment/Plan Problem List Items Addressed This Visit Primary hypertension (CMS/HCC) (Chronic) See above OV note. 02/04/24 Encounter for wellness examination in adult - Primary documented in this encounter [facility] 02-04-2024 Instructions Nisha Farfan NP - 02/04/2024 4:00 PM EDT FASTING labs ordered. Nothing to eat or drink for 12 hours prior to blood draw. Water and black coffee ok. Diet: Eat three meals per day. Breakfast, lunch, and dinner. Avoid snacking. Avoid eating after 5/6 pm. Daily protein GOAL 35% of your intake; 30g per meal. Daily calorie GOAL 1,800-2,000 per day. Consider tracking your food intake on MyFtinessPal or LoseIt Water: Increase water intake; GOAL 64-80oz of water per day. Exercise: Increase activity. GOAL 30 minutes, 5 days per week. START SLOW. Start with 5 minutes, 5 days per week. Then increase to 10 days, 5 days per week. Continue to increase until you reach the goal. Increase steps; GOAL 10,000 steps per day. Be sure to get adequate sleep; GOAL 6-8 hours of sleep per night. documented in this encounter [facility] Evaluation note Diagnosis Resistant hypertension (CMS/HCC)- Primary Essential (primary) hypertension (CMS/HCC) Unspecified essential hypertension Primary hypertension (CMS/HCC) Unspecified essential hypertension [facility] Diagnosis Primary hypertension (CMS/HCC)- Primary Unspecified essential [...] hypertension (CMS/HCC) [facility] Diagnosis Primary hypertension (CMS/HCC)- Primary Unspecified essential hypertension [facility] Diagnosis Primary hypertension (CMS/HCC)- Primary Unspecified essential hypertension Encounter for wellness examination in adult Carotid stenosis, bilateral Occlusion and stenosis of carotid artery without mention of cerebral infarction Hyperlipidemia, unspecified hyperlipidemia type (CMS/HCC) [facility] Diagnosis Primary hypertension (CMS/HCC)- Primary Unspecified essential [...] Primary Unspecified essential hypertension Resistant hypertension (CMS/HCC) Primary hypertension (CMS/HCC)- Primary Unspecified essential hypertension [facility] Diagnosis Stenosis of left carotid artery- Primary Occlusion and stenosis of carotid artery without mention of cerebral infarction [facility] Primary [facility] (CMS/HCC)- Primary Unspecified essential [...] Primary Unspecified essential hypertension Resistant hypertension (CMS/HCC) Primary hypertension (CMS/HCC)- Primary Unspecified essential hypertension Primary hypertension (CMS/HCC)- Primary Unspecified essential hypertension Hyperlipidemia, unspecified hyperlipidemia type (CMS/HCC) Aortic valve calcification Carotid stenosis, bilateral Occlusion and stenosis of carotid artery without mention of cerebral infarction Prostate cancer screening Special screening for malignant neoplasm of prostate documented in this encounter [facility]* Diagnosis Primary hypertension (CMS/HCC)- Primary Unspecified essential [...] Primary Unspecified essential hypertension Resistant hypertension (CMS/HCC) Primary hypertension (CMS/HCC)- Primary Unspecified essential hypertension Primary hypertension (CMS/HCC)- Primary Unspecified essential hypertension Hyperlipidemia, unspecified hyperlipidemia type (CMS/HCC) Aortic valve calcification Carotid stenosis, bilateral Occlusion and stenosis of carotid artery without mention of cerebral infarction Prostate cancer screening Special screening for malignant neoplasm of prostate Elevated glucose- Primary Other abnormal glucose documented in this encounter [facility] HealthcareInstructionsNot on filedocumented in this encounterProJoint Township District [facility] SystemReason for referral (narrative)* Consultation (Routine) - Pending Review Specialty Diagnoses / Procedures Referred By Contnina t Referred To Contact Cardiology Diagnoses Primary hypertension (CMS/HCC) Carotid stenosis, bilateral Procedures [place] OFFICE/OUTPATIENT [facility] 60 MINUTES Nisha Farfan NP [address] [place] [address] Ba Frye MD [address] [place] [phone] Referral ID Status Reason Start Date Expiration Date Visits Requested Visits Authorized [id number] Pending Review Specialty Services Required 02/17/2024 08/15/2024 1 1 [facility] Reason for Referral Specialty Diagnoses / Procedures Referred By Lorna mercer Referred To Contact Diagnoses Stenosis of left carotid artery Procedures Vas carotid duplex bilateral Freeman Lundy, [employer] T[employer]SI[employer] SALES REPRESENTATIVE [address] [place] [address] Referral ID Status Reason Start Date Expiration Date V isits Requested Visits Authorized [id number] Pending Review 03/15/2024 03/15/2025 1 1 Summary Purpose Family History No Family History Records FoundNo Family History Records Found Advance Directives No Advanced Directives Records FoundNo Advanced Directives Records Found Additional Source Comments Care Teams (unrecognized sec tion and content) Caddy Packer Relationship Specialty Start Date End Date Jori Colindres MD [address] [place] [phone] PCP - General Family Medicine 01/27/24 Nisha Farfan NP [address] [place] [address] Nurse Practitioner Family Medicine 01/27/24 Caddy Packer Relationship Specialty Start Date End Date Jori Colindres MD [address] [place] [phone] PCP - General Family Medicine 01/27/24 Nisha Farfan NP [address] [place] [address] Nurse Practitioner Family Medicine 01/27/24 Caddy Packer Relationship Specialty Start Date End Date Jori Colindres MD [address] [place] [address] PCP - General Family Medicine 01/27/24 Nisha Farfan NP [address] [place] [address] Nurse Practitioner Family Medicine 01/27/24 Caddy Packer Relationship Specialty Start Date End Date Jori Colindres MD [address] [place] [phone] PCP - General Family Medicine 01/27/24 Nisha Farfan NP [address] [place] [address] Nurse Practitioner Family Medicine 01/27/24 Caddy Packer Relationship Specialty Start Date End Date Jori Colindres MD [address] [place] [phone] PCP - General Family Medicine 01/27/24 Nisha Farfan NP [address] [place] [address] Nurse Practitioner Family Medicine 01/27/24 Caddy Packer Relationship Specialty Start Date End Date Jori Colindres MD [address] [place] [phone] PCP - General Family Medicine 01/27/24 Nisha Farfan NP [address] [place] [address] Nurse Practitioner Family Medicine 01/27/24 Caddy Packer Relationship Specialty Start Date End Date Jori Colindres MD [address] [place] [phone] PCP - General Family Medicine 01/27/24 Nisha Farfan NP [address] [place] [address] Nurse Practitioner Family Medicine 01/27/24 Caddy Packer Relationship Specialty Start Date End Date Jori Colindres MD [address] [place] [phone] PCP - General Family Medicine 01/27/24 Nisha Farfan NP [address] [place] [address] Nurse Practitioner Family Medicine 01/27/24 Caddy Packer Relationship Specialty Start Date End Date Jori Colindres MD [address] [place] [phone] PCP - General Family Medicine 01/27/24 Nisha Farfan NP [address] [place] [address] Nurse Practitioner Family Medicine 01/27/24 Caddy Packer Relationship Specialty Start Date End Date Jori Colindres MD [address] [place] [phone] PCP - General Family Medicine 01/27/24 Nisha Farfan NP [address] [place] [address] Nurse Practitioner Family Medicine 01/27/24 Caddy Packer Relationship Specialty Start Date End Date Jori Colindres MD [address] [place] [phone] PCP - General Family Medicine 01/27/24 Nisha Farfan NP [address] [place] [address] Nurse Practitioner Family Medicine 01/27/24 Caddy Packer Relationship Specialty Start Date End Date Jori Colindres MD [address] [place] [phone] PCP - General Family Medicine 01/27/24 Nisha Farfan NP [address] [place] [address] Nurse Practitioner Family Medicine 01/27/24 Caddy Packer Relationship Specialty Start Date End Date Jori Colindres MD [address] [place] [phone] PCP - General Family Medicine 01/27/24 Nisha Farfan NP [address] [place] [address] Nurse Practitioner Family Medicine 01/27/24 Caddy Packer Relationship Specialty Start Date End Date Jori Coilndres MD [address] [place] [phone] PCP - General Family Medicine 01/27/24 Nisha Farfan NP [address] [place] [address] Nurse Practitioner Family Medicine 01/27/24 Caddy Packer Relationship Specialty Start Date End Date Jori Colindres MD [address] [place] [address] PCP - General Family Medicine 01/27/24 Nisha Farfan NP [address] [place] Nurse Practitioner Family Medicine 01/27/24 Caddy Packer Relationship Specialty Start Date End Date Jori Colindres MD [address] [place] PCP - General Family Medicine 01/27/24 Nisha Farfan NP [address] [place] Nurse Practitioner Family Medicine 01/27/24 Caddy Packer Relationship Specialty Start Date End Date Jori Colindres MD [address] [place] PCP - General Family Medicine 01/27/24 Nisha Farfan NP [address] [place] Nurse Practitioner Family Medicine 01/27/24 Reason for Visit (unrecogniz ed section and content) Reason Comments Hypertension Med Refill Reason Comments Establish Care Reason Comments Hypertension ER Follow-up Reason Comments Hypertension Reason Comments Follow-up (unrecognized sect ion and content) No Status Records FoundNo Status Records Found INFORMATION SOURCE (unrecogn ized section and content) DATE CREATED AUTHOR 09/27/2024 [facility] EPIC DATE CREATED AUTHOR AUTHOR'S ORGANIZ ATION 10/09/2024 [facility] FOR RECORDS PERTAINING TO PATIENTS [...] BE BASED ON THE PRIMARY CLINICAL RECORDS. [facility] [email or web address] [facility]. provides no warranty or guarantee of the accuracy or completeness of information in this document.
[2024-12-08 09:50] LABS: Alanine Aminotransferase 26 U/L (16-63); Anion Gap 12.5; Aspartate Amino Transferase 17 U/L (15-37); BUN Creatinine Ratio 31.9; Calcium 8.5 mg/dL (8.5-10.1); Carbon Dioxide 26.8 mmol/L (21.0-32.0); Chloride 107 mmol/L (98-107); Chol HDL Ratio 1.9; Cholesterol 152 mg/dL (<=200); Estimated GFR (African America >60 (>=60 mL/min/1.73m^2); Estimated GFR (Non-African Ame >60 (>=60 mL/min/1.73m^2); Glucose 110 mg/dL (74-106); HDL Cholesterol 81 mg/dL (40-60); Potassium 4.3 mmol/L (3.5-5.1); Sodium 142 mmol/L (136-145); Triglycerides 140 mg/dL (<=150)
== END 2024-12-08 08:57 | disposition home or self-care (01) ==
LOC: LAB 08:59
PROVIDERS: Family Provider Internal Medicine; PCP Nurse Practitioner; Visit Provider Internal Medicine Cardiovascular Disease
DX: E78.00 Pure hypercholesterolemia, unspecified (principal); I10 Essential (primary) hypertension
CPT/HCPCS: 36415; 80048; 80061; 84450; 84460

== ENCOUNTER 2025-05-27 09:23 | Outpatient (OUT) | payer MEDICARE, SELFPAY ==
[2025-05-27 10:37] LABS: Alanine Aminotransferase 23 U/L (16-63); Aspartate Amino Transferase 11 U/L (15-37); Cholesterol 150 mg/dL (<=200); HDL Cholesterol 81 mg/dL (40-60); Triglycerides 52 mg/dL (<=150); VLDL CHOLESTEROL 10.4 mg/dL
== END 2025-05-27 09:24 | disposition home or self-care (01) ==
LOC: LAB 09:25
PROVIDERS: Family Provider Internal Medicine; Visit Provider Internal Medicine Cardiovascular Disease
DX: E78.1 Pure hyperglyceridemia (principal)
CPT/HCPCS: 36415; 80061; 84450; 84460